=== PATIENT | female | born 1980 | race Caucasian/White ===

== ENCOUNTER → 2018-09-11 | Outpatient (CLI) | payer MEDICAID ==
--- NOTE | 2018-09-11 14:24 | Diagnostic Imaging Report ---
Indication: Left hip osteoarthritis. Time of exam: 2:10 PM Two views of the left hip demonstrate moderate superior joint space narrowing. Medial joint space is maintained. The femoral acetabular alignment is unremarkable. Femoral head and neck are intact. No fractures are seen. Impression: Mild degenerative changes. No acute bony abnormality is detected. Dictated by: Dictated on workstation # [id number]
--- NOTE | 2018-09-11 14:25 | Diagnostic Imaging Report ---
Indication: Frozen left shoulder. Time of exam: 1:57 PM Multiple views of the left shoulder were obtained. Glenohumeral and acromioclavicular alignment are normal. Acromiohumeral space is normal. No fracture or dislocation is seen. Impression: No acute bony abnormality is detected. Dictated by: Dictated on workstation # [id number]
== END ==
LOC: RAD FS 13:40
PROVIDERS: ATTEND Nurse Practitioner
DX: M75.02 Adhesive capsulitis of left shoulder (principal); M16.12 Unilateral primary osteoarthritis, left hip; M67.814 Other specified disorders of tendon, left shoulder
CPT/HCPCS: 73030; 73502

== ENCOUNTER 2018-09-30 11:56 | Emergency (ER) | payer MEDICAID ==
[~2018-09-30] VITALS: Ht 175.3 cm; Wt 123.4 kg
--- OUTSIDE RECORDS SUMMARY | 2018-09-30 12:01 | XMS REPORT ---
Author Author NIMCO RILEY Organization [facility] Address [address] [place] [address] Care Team Providers Care Machine I Cutter Name Role Phone NIMCO RILEY Unavailable PROBLEMS Unknown Problems ALLERGIES Substance Reaction Event Type Date Status Metformin HCl Unknown Drug Allergy October, Active ENCOUNTERS Encounter Location Date Diagnosis [facility] [address] [id number] [id number] October, Encounter for dental examination Z01.20 IMMUNIZATIONS No Known Immunizations SOCIAL HISTORY Never Assessed REASON FOR VISIT EST CARE PLAN OF CARE Activity Details Follow Up First Available/, 6 Weeks Reason:Restroative/Prophy VITAL SIGNS Blood pressure systolic 148 mmHg 2017-11-09 Blood pressure diastolic 78 mmHg 2017-11-09 MEDICATIONS Medication Instructions Dosage Frequency Start Date End Date Duration Status Sertraline HCl Active NovoLog Active Lisinopril Active Trazodone & Diet Manage Prod Active Lantus Active BusPIRone HCl Active Victoza Active Tramadol & Dietary Manage Prod Active RESULTS No Results PROCEDURES Procedure Date Ordered Result Body Site COMP ORAL EVALUATION - NEW/EST PT November 09, 2017 INTRAORL-PERIAPICAL 1 FILM [id number] November 09, 2017 Scaling Gingiv Inflammation November 09, 2017 INTRAORL-PERIAPICAL EA ADD FILM November 09, 2017 INTRAORL-PERIAPICAL EA ADD FILM November 09, 2017 PANORAMIC FILM SEE ALSO CODE [id number] November 09, 2017 BITEWINGS - FOUR FILMS November 09, 2017 INSTRUCTIONS MEDICATIONS ADMINISTERED No Known Medications MEDICAL (GENERAL) HISTORY Type Description Date Medical History High Blood Pressure Medical History Asthma Medical History Bronchitis Medical History Type II diabetes Medical History Arthritis Surgical History Tonsils removed 1983 Surgical History Gallbladder Surgical History Ovary removed 2016 Surgical History Hysterectomy 2015 Hospitalization History Hospitalization for surgery only
--- OUTSIDE RECORDS SUMMARY | 2018-09-30 12:01 | XMS REPORT ---
Author Author Jacqueline Quiñonez Organization Dental Address [address], [place] [id number] Care Team Providers Care Assistant Professor In Family Studies Name Role Phone Jacqueline Quiñonez Unavailable PROBLEMS Type Condition ICD9-CM Code [id number] Code Onset Dates Condition Status SNOMED Code Problem Pulpitis 522.0 Active 46835565 Problem tobacco use disorder 305.1 Active 315693934 ALLERGIES No Known Allergies SOCIAL HISTORY Never Assessed PLAN OF CARE Activity Details Follow Up prn Reason:prn VITAL SIGNS Height 70 in 2013-10-11 Weight 256.2 lbs 2013-10-11 Temperature 98.5 degrees Fahrenheit 2013-10-11 BMI 36.76 kg/m2 2013-10-11 Blood pressure systolic 150 mm Hg 2013-10-11 Blood pressure diastolic 90 mm Hg 2013-10-11 MEDICATIONS Medication Instructions Dosage Frequency Start Date End Date Duration Status traZODone HCl 100mg 4 tablets daily Active Naprosyn 375 MG Orally Twice a day 1 tablet 12h May, 30 day(s) Active Lexapro 20mg 1 tablet Active Mason 5-325 MG Orally 1 tab every 6 hrs prn pain as directed Sep, 05 days Active Flonase 50 MCG/ACT Nasally Once a day 2 sprays 24h May, 30 day( s) Active Amoxicillin 250 MG Orally every 12 hrs not taking 12h May, 10 day(s) Active Penicillin V Potassium 500 mg Orally four times a day (qid) 1 tablet Sep, 10 day(s) Active Levemir Flexpen 100 UNIT/ML Subcutaneous Twice daily 50 units Jun, Active RESULTS No Results PROCEDURES Procedure Date Ordered Result Body Site LIMITED ORAL EVALUATION October 11, 2013 SINGLE FIRST FILM October 11, 2013 REAGENT STRIP/BLOOD GLUCOSE October 11, 2013 GLUCOSE BLOOD TEST October 11, 2013 IMMUNIZATIONS No Known Immunizations MEDICAL (GENERAL) HISTORY Type Description Date Medical History High Blood Pressure Medical History Diabetes I Medical History Hepatitis C Medical History psychiatric treatment Medical History liver problems Surgical History tonsillectomy 1983 Surgical History eye surgery 1977 Surgical History ear surgery 1985 Surgical History gallbladder removed 1999 Surgical History c-sections 1996,2003 Surgical History liver bypass 2009 Surgical History lap band 2009 Hospitalization History flu 2010
[2018-09-30] MEDS ORDERED: KETOROLAC 60 MG/2 ML VIAL IM ONE (12:15)
--- NOTE | 2018-09-30 12:19 | ED Back Pain ---
General Chief Complaint: Back Problems Stated Complaint: BACK PAIN Nursing Triage Note: back pain started earlier this week and is getting worse. Now states it is hard to walk bc of the pain. Has taken tramadol and flexeril for pain. Nursing Sepsis Screen: No Definite Risk History of Present Illness Date Seen by Provider: Sep 30, 2018 Time Seen by Provider: 12:15 Initial Comments This 38-year-old white female presents with a complaint of low back pain that has been progressive for the last several days. The patient denies any recent trauma to the back. The patient's pain is sharp in nature and severe. It is made worse with movement. The patient has chronic pain in her left hip that she believes is unrelated to her low back pain. Past medical history includes poorly controlled diabetes. She has had no associated fever, chills, dysuria, frequency, or lateralizing flank pain. Patient has had multiple abdominal surgeries including cholecystectomy, C- section, and hysterectomy. She has had no back surgery. 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 Allergies and Home Medications Allergies Coded Allergies: metformin (Verified Allergy, Unknown, nausea/vomiting, 09/30/18) sumatriptan (Verified Allergy, Unknown, syncope, 09/30/18) Patient Home Medication List Home Medication List Reviewed: Yes Review of Systems Constitutional: No chills, No fever EENTM: No ear pain, No vision loss Respiratory: No cough Cardiovascular: No chest pain Gastrointestinal: No abdominal pain, No diarrhea, No nausea, No vomiting Genitourinary: No dysuria, No frequency Musculoskeletal: see HPI, back pain, joint pain Skin: No change in color (left hip), No rash Psychiatric/Neurological: No Symptoms Reported Past Fnrgehn-Thybqn-Pcyppr Hx Past Med/Social Hx: Reviewed Nursing Past Med/Soc Hx Patient Social History Alcohol Use: Denies Use Recreational Drug Use: No Smoking Status: Current Everyday Smoker 2nd Hand Smoke Exposure: Yes Recent Foreign Travel: No Contact w/Someone Who Travel: No Recent Infectious Disease Expo: No Physical Abuse: No Sexual Abuse: No Mistreated: No Physical Exam Vital Signs Vital Signs - First Documented 09/30/18 12:04 Temp 96.6 Pulse 70 Resp 18 B/P (MAP) 139/68 (91) Pulse Ox 94 Capillary Refill : Less Than 3 Seconds Height, Weight, BMI Height: 5'9.00" Weight: 272lbs. oz. 123.069489qh; BMI Method:Stated General Appearance: WD/WN, Mild Distress HEENT: Normal ENT Inspection Neck: Normal Inspection Cardiovascular: Regular Rate, Rhythm Respiratory: Lungs Clear Gastrointestinal: Normal Bowel Sounds, Non Tender, Soft Back: Normal Inspection; No Vertebral Tenderness; Other (. The patient's pain is located over the lower lumbar region in the midline.) Extremity: Normal Inspection, Normal Range of Motion Neurologic/Psychiatric: Alert, Oriented x3, No Motor/Sensory Deficits, Normal Mood/Affect Skin: Normal Color, Warm/Dry Progress/Results/Core Measures Results/Orders Lab Results Laboratory Tests Test 09/30/18 12:26 09/30/18 12:27 Range/Units White Blood Count 11.8 H 4.3-11.0 10^3/uL Red Blood Count 5.07 4.35-5.85 10^6/uL Hemoglobin 14.8 11.5-16.0 G/DL Hematocrit 44 35-52 % Mean Corpuscular Volume 86 80-99 FL Mean Corpuscular Hemoglobin 29 25-34 PG Mean Corpuscular Hemoglobin Concent 34 32-36 G/DL Red Cell Distribution Width 12.6 10.0-14.5 % Platelet Count 331 130-400 10^3/uL Mean Platelet Volume 10.1 7.4-10.4 FL Neutrophils (%) (Auto) 68 42-75 % Lymphocytes (%) (Auto) 23 12-44 % Monocytes (%) (Auto) 6 0-12 % Eosinophils (%) (Auto) 2 0-10 % Basophils (%) (Auto) 1 0-10 % Neutrophils # (Auto) 8.0 H 1.8-7.8 X 10^3 Lymphocytes # (Auto) 2.8 1.0-4.0 X 10^3 Monocytes # (Auto) 0.7 0.0-1.0 X 10^3 Eosinophils # (Auto) 0.2 0.0-0.3 10^3/uL Basophils # (Auto) 0.1 0.0-0.1 10^3/uL Sodium Level 134 L 135-145 MMOL/L Potassium Level 4.5 3.6-5.0 MMOL/L Chloride Level 96 L 98-107 MMOL/L Carbon Dioxide Level 26 21-32 MMOL/L Anion Gap 12 5-14 MMOL/L Blood Urea Nitrogen 10 7-18 MG/DL Creatinine 0.53 L 0.60-1.30 MG/DL Estimat Glomerular Filtration Rate > 60 BUN/Creatinine Ratio 19 Glucose Level 384 H 70-105 MG/DL Calcium Level 9.4 8.5-10.1 MG/DL Corrected Calcium 9.3 8.5-10.1 MG/DL Total Bilirubin 0.3 0.1-1.0 MG/DL Aspartate Amino Transf (AST/SGOT) 10 5-34 U/L Alanine Aminotransferase (ALT/SGPT) 8 0-55 U/L Alkaline Phosphatase 158 H 40-136 U/L Total Protein 7.6 6.4-8.2 GM/DL Albumin 4.1 3.2-4.5 GM/DL Urine Color YELLOW Urine Clarity CLEAR Urine pH 6 5-9 Urine Specific [place] 1.020 1.016-1.022 Urine Protein NEGATIVE NEGATIVE Urine Glucose (UA) 3+ H NEGATIVE Urine Ketones NEGATIVE NEGATIVE Urine Nitrite NEGATIVE NEGATIVE Urine Bilirubin NEGATIVE NEGATIVE Urine Urobilinogen NORMAL NORMAL MG/DL Urine Leukocyte Esterase NEGATIVE NEGATIVE Urine RBC (Auto) NEGATIVE NEGATIVE Urine RBC NONE /HPF Urine WBC NONE /HPF Urine Squamous Epithelial Cells 2-5 /HPF Urine Crystals NONE /LPF Urine Bacteria NEGATIVE /HPF Urine Casts NONE /LPF Urine Mucus NEGATIVE /LPF Urine Culture Indicated NO My Orders Orders - PARUL PEARSON MD Ct Lumbar Spine Wo (09/30/18 12:12) Cbc With Automated Diff (09/30/18 12:12) Ua Culture If Indicated (09/30/18 12:12) Comprehensive Metabolic Panel (09/30/18 12:12) Hemoglobin A1c (09/30/18 12:12) Ketorolac Injection (Toradol Injection) (09/30/18 12:15) Medications Given in ED Current Medications Medications Dose Ordered Sig/Martin Route Start Time Stop Time Status Last Admin Dose Admin Ketorolac Tromethamine 60 mg ONCE ONCE IM 09/30/18 12:15 09/30/18 12:16 DC 09/30/18 12:24 60 MG Vital Signs/I&O 09/30/18 12:04 Temp 96.6 Pulse 70 Resp 18 B/P (MAP) 139/68 (91) Pulse Ox 94 Blood Pressure Mean: 91 Progress Progress Note : Time: 13:13 Progress Note The glucose of 380 at patient's laboratory evaluation was unremarkable. Patient 's hemoglobin A1c is pending. CT of the lumbar spine demonstrated mild degenerative changes. The patient received 60 mg of Norflex and 60 mg of Toradol IM without significant improvement in her pain. Patient relates that hydrocodone works well for her pain. Patient will use her sliding scale to adjust her hyperglycemia. I gave her a prescription for 20 Vicodin until she can follow-up with her doctor on Tuesday. I asked her to return if any problems or questions. Departure Impression Primary Impression: Back pain Qualified Codes: M54.5 - Low back pain Additional Impression: Hyperglycemia Disposition: HOME, SELF-CARE Condition: Unchanged Departure-Patient Inst. Decision time for Depature: 13:15 Referrals: AMINA MAR MD (PCP) Primary Care Physician Patient Instructions: Hyperglycemia, Adult (DC), Low Back Pain (DC) Add. Discharge Instructions: Vicodin for pain. Usually her sliding scale to adjust her glucose. Return if any problems or questions. Follow up with your doctor on Tuesday. All discharge instructions reviewed with patient and/or family. Voiced understanding. PARUL PEARSON MD Sep 30, 2018 12:19
[2018-09-30 12:36] LABS: EOSINOPHILS % (AUTO) 2 % (0-10); HEMATOCRIT 44 % (35-52); HEMOGLOBIN 14.8 G/DL (11.5-16.0); LYMPHOCYTES % (AUTO) 23 % (12-44); MEAN CORPUSCULAR HEMOGLOBIN 29 PG (25-34); MEAN CORPUSCULAR HGB CONC 34 G/DL (32-36); MEAN CORPUSCULAR VOLUME 86 FL (80-99); MEAN PLATELET VOLUME 10.1 FL (7.4-10.4); MONOCYTES % (AUTO) 6 % (0-12); NEUTROPHILS % (AUTO) 68 % (42-75); PLATELET COUNT 331 10^3/uL (130-400); RED CELL DISTRIBUTION WIDTH 12.6 % (10.0-14.5); WHITE BLOOD COUNT 11.8 10^3/uL (4.3-11.0)
[2018-09-30 12:37] LABS: BASOPHILS # (AUTO) 0.1 10^3/uL (0.0-0.1); BASOPHILS % (AUTO) 1 % (0-10); EOSINOPHILS # (AUTO) 0.2 10^3/uL (0.0-0.3); LYMPHOCYTES # (AUTO) 2.8 X 10^3 (1.0-4.0); MONOCYTES # (AUTO) 0.7 X 10^3 (0.0-1.0)
[2018-09-30 12:44] LABS: BACTERIA,URINE NEGATIVE /HPF; BILIRUBIN,URINE NEGATIVE (NEGATIVE); CLARITY,URINE CLEAR; COLOR,URINE YELLOW; GLUCOSE, URINE (UA) 3+ (NEGATIVE); KETONES,URINE NEGATIVE (NEGATIVE); LEUKOCYTE ESTERASE ,URINE NEGATIVE (NEGATIVE); NITRITE,URINE NEGATIVE (NEGATIVE); PH,URINE 6 (5-9); PROTEIN,URINE NEGATIVE (NEGATIVE); UROBILINOGEN,URINE NORMAL (NORMAL)
[2018-09-30 13:01] LABS: ALANINE AMINOTRANSFERASE 8 U/L (0-55); ALBUMIN 4.1 GM/DL (3.2-4.5); ALKALINE PHOSPHATASE 158 U/L (40-136); BILIRUBIN,TOTAL 0.3 MG/DL (0.1-1.0); BUN/CREATININE RATIO 19; CALCIUM 9.4 MG/DL (8.5-10.1); CARBON DIOXIDE 26 MMOL/L (21-32); CHLORIDE 96 MMOL/L (98-107); CREATININE SERUM 0.53 MG/DL (0.60-1.30); GFR ESTIMATED > 60; GLUCOSE 384 MG/DL (70-105); POTASSIUM 4.5 MMOL/L (3.6-5.0); SODIUM 134 MMOL/L (135-145); TOTAL PROTEIN 7.6 GM/DL (6.4-8.2)
--- NOTE | 2018-09-30 13:12 | Diagnostic Imaging Report ---
PROCEDURE: CT lumbar spine without contrast. TECHNIQUE: Multiple contiguous axial images were obtained through the lumbar spine without the use of intravenous contrast. Sagittal and coronal reformations were then performed. Auto Exposure Controls were utilized during the CT exam to meet ALARA standards for radiation dose reduction. INDICATION: Back pain that began five days previous. FINDINGS: The alignment of the lumbar spine is normal. The vertebral body heights are well maintained. There is no spondylolysis or spondylolisthesis. No fractures are identified. There are no lytic or sclerotic lesions. There is some lower lumbar hypertrophic degenerative facet disease. At L4-L5, there appears to be some broad-based annular bulging as well as some thickening of the ligamentum flavum. There may be some degree of spinal stenosis and mild neuroforaminal encroachment at this level. At L5-S1, there is a calcified osteophyte disc complex in a left paramedian distribution resulting in effacement of the ventral thecal sac and encroachment upon the left lateral recess and left neural foramen. The abdominal aorta is nonaneurysmal. Visualized kidneys are unremarkable. IMPRESSION: Mild lower lumbar spondylosis and degenerative disc disease as described. Findings could be better evaluated with MRI. Dictated by: Dictated on workstation # [id number]
[2018-09-30 13:45] VITALS: BP 119/65
== END 2018-09-30 13:48 | disposition home or self-care (01) ==
LOC: EDUNIT# 11:56 → ER FS 11:58
DX: M54.5 Low back pain (principal); E11.65 Type 2 diabetes mellitus with hyperglycemia; F17.210 Nicotine dependence, cigarettes, uncomplicated; Z88.8 Allergy status to other drugs, medicaments and biological substances; Z90.49 Acquired absence of other specified parts of digestive tract; Z90.710 Acquired absence of both cervix and uterus; Z98.890 Other specified postprocedural states
CPT/HCPCS: 36415; 72131; 80053; 81000; 83036; 85025; 96372

== ENCOUNTER → 2018-11-14 | Outpatient (CLI) | payer MEDICAID ==
--- NOTE | 2018-11-14 11:10 | Diagnostic Imaging Report ---
PROCEDURE: MRI lumbar spine. TECHNIQUE: Multiplanar, multisequence MRI of the lumbar spine was performed without contrast. INDICATION: Bilateral leg pain and low back pain. FINDINGS: Lumbar spinal curvature and alignment are unremarkable. Vertebral body heights and disc spaces are maintained. There is mild annular bulging of the L3-L4 disc with associated degenerative facet arthropathy. No significant stenosis is identified. At L4-L5, there is right paramedian protrusion with apparent extruded fragment extending posterior along the L5 vertebral body. This is associated with degenerative facet arthropathy and results in moderately severe spinal stenosis with severe right lateral recess stenosis and mild neural foraminal stenosis, greater on the right. At L5-S1, there is large left paramedian disc protrusion resulting in moderate left lateral recess and neural foraminal stenosis. No other focal stenosis is identified. Conus medullaris is unremarkable at the T12 level. There is no marrow signal abnormality to indicate fracture. IMPRESSION: Right paramedian protrusion and extrusion at L4-L5 disc results in moderate spinal and severe right lateral recess stenosis. Left paramedian protrusion of L5-S1 disc causes [id number] spinal and moderate left lateral recess stenosis with [id number] left neural foraminal stenosis. Dictated by: Dictated on workstation # [id number]
== END ==
LOC: RAD 09:45
PROVIDERS: ATTEND Nurse Practitioner
DX: M51.17 Intervertebral disc disorders with radiculopathy, lumbosacral region (principal); M48.07 Spinal stenosis, lumbosacral region
CPT/HCPCS: 72148

== ENCOUNTER 2018-12-05 14:10 | Emergency (ER) | payer MEDICAID ==
[~2018-12-05] VITALS: Ht 175.3 cm; Wt 123.4 kg
--- OUTSIDE RECORDS SUMMARY | 2018-12-05 14:16 | XMS REPORT | Continuity of Care Document ---
Author Organization Unknown Address Unknown Allergies Active Description Code Type Severity Reaction Onset Reported/Identified Relationship to Patient Clinical Status Yes metformin [id number] Drug Allergy Unknown nausea/vomiting 09/30/2018 Yes sumatriptan [id number] Drug Allergy Unknown syncope 09/30/2018 Medications There is no data. Problems Date Dx Coded Attending Type Code Diagnosis Diagnosed By 09/12/2018 AMINA MAR MD, Ot M16.12 UNILATERAL PRIMARY OSTEOARTHRITIS, LEFT 09/12/2018 AMINA MAR MD Ot M67.814 OTHER SPECIFIED DISORDERS OF TENDON, LEF 09/12/2018 AMINA MAR MD Ot M75.02 ADHESIVE CAPSULITIS OF LEFT SHOULDER 09/18/2018 AMINA MAR MD Ot M16.12 UNILATERAL PRIMARY OSTEOARTHRITIS, LEFT 09/18/2018 AMINA MAR MD Ot M67.814 OTHER SPECIFIED DISORDERS OF TENDON, LEF 09/18/2018 AMINA MAR MD Ot M75.02 ADHESIVE CAPSULITIS OF LEFT SHOULDER 09/30/2018 PARUL PEARSON MD Ot E11.65 TYPE 2 DIABETES MELLITUS WITH HYPERGLYCE 09/30/2018 PARUL PEARSON MD Ot F17.210 NICOTINE DEPENDENCE, CIGARETTES, UNCOMPL 09/30/2018 PARUL PEARSON MD Ot M54.5 LOW BACK PAIN 09/30/2018 PARUL PEARSON MD Ot Z88.8 ALLERGY STATUS TO OTH DRUG/MEDS/BIOL SUB 09/30/2018 PARUL PERASON MD Ot Z90.49 ACQUIRED ABSENCE OF OTHER SPECIFIED PART 09/30/2018 PARUL PEARSON MD Ot Z90.710 ACQUIRED ABSENCE OF BOTH CERVIX AND UTER 09/30/2018 PARUL PEARSON MD Ot Z98.890 OTHER SPECIFIED POSTPROCEDURAL STATES 10/05/2018 AMINA MAR MD Ot M16.12 UNILATERAL PRIMARY OSTEOARTHRITIS, LEFT 10/05/2018 AMINA MAR MD Ot M67.814 OTHER SPECIFIED DISORDERS OF TENDON, LEF 10/05/2018 AMINA MAR MD Ot M75.02 ADHESIVE CAPSULITIS OF LEFT SHOULDER 11/10/2018 AMINA MAR MD Ot M16.12 UNILATERAL PRIMARY OSTEOARTHRITIS, LEFT 11/10/2018 AMINA MAR MD Ot M67.814 OTHER SPECIFIED DISORDERS OF TENDON, LEF 11/10/2018 AMINA MAR MD Ot M75.02 ADHESIVE CAPSULITIS OF LEFT SHOULDER 12/04/2018 AMINA MAR MD Ot M16.12 UNILATERAL PRIMARY OSTEOARTHRITIS, LEFT 12/04/2018 AMINA MAR MD Ot M67.814 OTHER SPECIFIED DISORDERS OF TENDON, LEF 12/04/2018 AMINA MAR MD Ot M75.02 ADHESIVE CAPSULITIS OF LEFT SHOULDER 12/04/2018 CHESTER BURNS Ot M48.07 SPINAL STENOSIS, LUMBOSACRAL REGION 12/04/2018 CHESTER BURNS Ot M51.17 INTVRT DISC DISORDERS W RADICULOPATHY, L Procedures There is no data. Results Test Result Range Complete blood count (CBC) with automated white blood cell (WBC) differential - 09/30/18 12:26 Blood leukocytes automated count (number/volume) 11.8 10*3/uL 4.3-11.0 Blood erythrocytes automated count (number/volume) 5.07 10*6/uL 4.35-5.85 Venous blood hemoglobin measurement (mass/volume) 14.8 g/dL 11.5-16.0 Blood hematocrit (volume fraction) 44 % 35-52 Automated erythrocyte mean corpuscular volume 86 [foz_us] 80-99 Automated erythrocyte mean corpuscular hemoglobin (mass per erythrocyte) 29 pg 25-34 Automated erythrocyte mean corpuscular hemoglobin concentration measurement (mass/volume) 34 g/dL 32-36 Automated erythrocyte distribution width ratio 12.6 % 10.0- 14.5 Automated blood platelet count (count/volume) 331 10*3/uL 130-400 Automated blood platelet mean volume measurement 10.1 [foz_us] 7.4-10.4 Automated blood neutrophils/100 leukocytes 68 % 42-75 Automated blood lymphocytes/100 leukocytes 23 % 12-44 Blood monocytes/100 leukocytes 6 % 0-12 Automated blood eosinophils/100 leukocytes 2 % 0-10 Automated blood basophils/100 leukocytes 1 % 0-10 Blood neutrophils automated count (number/volume) 8.0 10*3 1.8-7.8 Blood lymphocytes automated count (number/volume) 2.8 10*3 1.0-4.0 Blood monocytes automated count (number/volume) 0.7 10*3 0.0- 1.0 Automated eosinophil count 0.2 10*3/uL 0.0-0.3 Automated blood basophil count (count/volume) 0.1 10*3/uL 0.0-0.1 Comprehensive metabolic panel - 09/30/18 12:26 Serum or plasma sodium measurement (moles/volume) 134 mmol/L 135-145 Serum or plasma potassium measurement (moles/volume) 4.5 mmol/L 3.6-5.0 Serum or plasma chloride measurement (moles/volume) 96 mmol/L 98-107 Carbon dioxide 26 mmol/L 21-32 Serum or plasma anion gap determination (moles/volume) 12 mmol/L 5-14 Serum or plasma urea nitrogen measurement (mass/volume) 10 mg/dL 7-18 Serum or plasma creatinine measurement (mass/volume) 0.53 mg/dL 0.60-1.30 Serum or plasma urea nitrogen/creatinine mass ratio 19 NRG Serum or plasma creatinine measurement with calculation of estimated glomerular filtration rate > NRG Serum or plasma glucose measurement (mass/volume) 384 mg/dL 70-105 Serum or plasma calcium measurement (mass/volume) 9.4 mg/dL 8.5-10.1 Serum or plasma total bilirubin measurement (mass/volume) 0.3 mg/dL 0.1-1.0 Serum or plasma alkaline phosphatase measurement (enzymatic activity/volume) 158 U/L 40-136 Serum or plasma aspartate aminotransferase measurement (enzymatic activity/volume) 10 U/L 5-34 Serum or plasma alanine aminotransferase measurement (enzymatic activity/volume) 8 U/L 0-55 Serum or plasma protein measurement (mass/volume) 7.6 g/dL 6.4-8.2 Serum or plasma albumin measurement (mass/volume) 4.1 g/dL 3.2-4.5 CALCIUM CORRECTED 9.3 mg/dL 8.5-10.1 Hemoglobin A1c - 09/30/18 12:26 Blood hemoglobin A1C measurement (mass/volume) 11.5 % 4.0- 5.6 MEAN BLOOD GLUCOSE 283 % <=126 Complete urinalysis with reflex to culture - 09/30/18 12:27 Urine color determination YELLOW NRG Urine clarity determination CLEAR NRG Urine pH measurement by test strip 6 5-9 Specific gravity of urine by test strip 1.020 1.016-1.022 Urine protein assay by test strip, semi-quantitative NEGATIVE NEGATIVE Urine glucose detection by automated test strip 3+ NEGATIVE Erythrocytes detection in urine sediment by light microscopy NEGATIVE NEGATIVE Urine ketones detection by automated test strip NEGATIVE NEGATIVE Urine nitrite detection by test strip NEGATIVE NEGATIVE Urine total bilirubin detection by test strip NEGATIVE NEGATIVE Urine urobilinogen measurement by automated test strip (mass/volume) NORMAL NORMAL Urine leukocyte esterase detection by dipstick NEGATIVE NEGATIVE Automated urine sediment erythrocyte count by microscopy (number/high power field) NONE NRG Automated urine sediment leukocyte count by microscopy (number/high power field) NONE NRG Bacteria detection in urine sediment by light microscopy NEGATIVE NRG Squamous epithelial cells detection in urine sediment by light microscopy 2-5 NRG Crystals detection in urine sediment by light microscopy NONE NRG Casts detection in urine sediment by light microscopy NONE NRG Mucus detection in urine sediment by light microscopy NEGATIVE NRG Complete urinalysis with reflex to culture NO NRG Encounters ACCT No. Visit Date/Time Discharge Status Pt. Type Provider Facility Loc./Unit Complaint [id number] 11/14/2018 09:45:00 11/14/2018 23:59:59 CLS Outpatient CHESTER BURNS [facility] [address] RAD SCIATICA, LT [id number] 09/30/2018 11:58:00 09/30/2018 13:48:00 DIS Emergency LILI TAYLOR, PARUL Parra [facility] [address] ER FS BACK PAIN [id number] 09/11/2018 13:40:00 09/11/2018 23:59:59 CLS Outpatient AMINA MAR MD [facility] [address] RAD FS M16.12 M67.814 [id number] 01/02/2019 15:15:00 PEN Preadmit RICHARD FRITZ [facility] [address] ONC
[2018-12-05] MEDS ORDERED: LIDOCAINE 1% INJ 20 ML 20 ML VIAL ONE (14:23)
[2018-12-05 14:39] VITALS: BP 134/69
--- NOTE | 2018-12-05 14:44 | ED Integumentary General ---
General Chief Complaint: Skin/Wound Problems Stated Complaint: ABSCESS Nursing Triage Note: States has had an abscess on left buttock for two months. Saw her regular doctor two weeks ago and got a prescription for bactrim. Has been out of bactrim since last tuesday and the abscess is getting worse and is painful. Pain is rated at 7/10. Took tylenol yesterday for pain. Source: patient Exam Limitations: no limitations History of Present Illness Date Seen by Provider: Dec 05, 2018 Time Seen by Provider: 14:20 Initial Comments Patient is a 38 year old female who presents with L buttock soft tissue mass with concern for possible abscess. Patient has been evaluated by her PCP and LEEP some misery and started on a course of antibiotics. Patient weight antibiotics's weeks ago but states the cyst or abscess has persisted. The patient reports localized irritation and pain only. There is approximately a 2 x 2 cm subcutaneous left buttock/perianal soft tissue mass approximately 4 cm from the anal a the 9 o'clock position. No overlying erythema, minimal tenderness on exam Location: genitalia Associated Symptoms: denies symptoms Allergies and Home Medications Allergies Coded Allergies: metformin (Verified Allergy, Unknown, nausea/vomiting, 09/30/18) sumatriptan (Verified Allergy, Unknown, syncope, 09/30/18) Patient Home Medication List Home Medication List Reviewed: Yes Review of Systems Review of Systems Constitutional: no symptoms reported EENTM: no symptoms reported Respiratory: no symptoms reported Cardiovascular: no symptoms reported Genitourinary: no symptoms reported Skin: see HPI Past Xhqqnez-Qpkhhj-Rhpxnk Hx Past Med/Social Hx: Reviewed Nursing Past Med/Soc Hx Patient Social History Alcohol Use: Denies Use Recreational Drug Use: No Smoking Status: Current Everyday Smoker 2nd Hand Smoke Exposure: Yes Recent Foreign Travel: No Contact w/Someone Who Travel: No Recent Infectious Disease Expo: No Physical Abuse: No Sexual Abuse: No Mistreated: No Fear: No Physical Exam Vital Signs Vital Signs - First Documented 12/05/18 14:16 Temp 97.8 Pulse 88 Resp 16 B/P (MAP) 134/69 (90) Pulse Ox 97 Capillary Refill : Less Than 3 Seconds General Appearance: no apparent distress HEENT: PERRL/EOMI Neck: full range of motion Respiratory: lungs clear 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 No overlying erythema, minimal tenderness on exam) Progress/Results/Core Measures Results/Orders My Orders Orders - CHAVEZ SHARIF DO Lidocaine 1% Inj 20 Ml (Xylocaine 1% Inj (12/05/18 14:23) Vital Signs/I&O 12/05/18 14:16 Temp 97.8 Pulse 88 Resp 16 B/P (MAP) 134/69 (90) Pulse Ox 97 Blood Pressure Mean: 90 Departure Communication (Admissions) Needle aspiration procedure note Patient's left buttocks was prepped with Betadine. 2 cc of 1% lidocaine without epinephrine were injected directly above the area of greatest fluctuance the left buttock soft tissue mass. Following which an 18 G was inserted this area of the previsit aspiration. 3 times her to made to aspirate this which were unsuccessful. No further attempts were made. Bleeding and pain were minimal. The patient was instructed to follow up with her PCP for re-evaluation. Impression Primary Impression: Buttocks nodule Disposition: 01 HOME, SELF-CARE Condition: Improved Departure-Patient Inst. Add. Discharge Instructions: Take ibuprofen as needed for pain and swelling and follow up with your PCP for further evaluation. All discharge instructions reviewed with patient and/or family. Voiced und erstanding. CHAVEZ SHARIF DO Dec 05, 2018 14:44
[2018-12-05] MEDS ORDERED: LIDOCAINE 1% INJ 20 ML 20 ML VIAL INJ ONE (14:45)
== END 2018-12-05 14:46 | disposition home or self-care (01) ==
LOC: EDUNIT# 14:10 → ER FS 14:11
DX: R22.2 Localized swelling, mass and lump, trunk (principal); F17.200 Nicotine dependence, unspecified, uncomplicated; Z88.8 Allergy status to other drugs, medicaments and biological substances
CPT/HCPCS: 99282

== ENCOUNTER 2019-01-02 12:08 | Outpatient (RCR) | payer MEDICAID ==
[2019-01-02 13:38] LABS: BASOPHILS # (AUTO) 0.1 10^3/uL (0.0-0.1); BASOPHILS % (AUTO) 0 % (0-10); EOSINOPHILS # (AUTO) 0.3 10^3/uL (0.0-0.3); EOSINOPHILS % (AUTO) 1 % (0-10); HEMATOCRIT 43 % (35-52); HEMOGLOBIN 14.6 G/DL (11.5-16.0); LYMPHOCYTES # (AUTO) 4.2 X 10^3 (1.0-4.0); LYMPHOCYTES % (AUTO) 21 % (12-44); MEAN CORPUSCULAR HEMOGLOBIN 29 PG (25-34); MEAN CORPUSCULAR HGB CONC 34 G/DL (32-36); MEAN CORPUSCULAR VOLUME 86 FL (80-99); MEAN PLATELET VOLUME 9.9 FL (7.4-10.4); MONOCYTES # (AUTO) 1.3 X 10^3 (0.0-1.0); MONOCYTES % (AUTO) 7 % (0-12); NEUTROPHILS # (AUTO) 14.4 X 10^3 (1.8-7.8); NEUTROPHILS % (AUTO) 71 % (42-75); PLATELET COUNT 375 10^3/uL (130-400); RED CELL DISTRIBUTION WIDTH 13.6 % (10.0-14.5); WHITE BLOOD COUNT 20.2 10^3/uL (4.3-11.0)
[2019-01-02 13:41] LABS: SMEAR SCAN COMMENT YES
[2019-01-02 14:00] LABS: ALANINE AMINOTRANSFERASE 18 U/L (0-55); ALKALINE PHOSPHATASE 140 U/L (40-136); BILIRUBIN,TOTAL 0.4 MG/DL (0.1-1.0); BUN/CREATININE RATIO 22; CALCIUM 9.9 MG/DL (8.5-10.1); CARBON DIOXIDE 23 MMOL/L (21-32); CHLORIDE 104 MMOL/L (98-107); CREATININE SERUM 0.81 MG/DL (0.60-1.30); GFR ESTIMATED > 60; GLUCOSE 126 MG/DL (70-105); POTASSIUM 4.6 MMOL/L (3.6-5.0); SODIUM 138 MMOL/L (135-145); TOTAL PROTEIN 7.8 GM/DL (6.4-8.2)
[2019-01-17] MEDS ORDERED: SULF1TAB34 PO (18:57)
[2019-02-24] MEDS ORDERED: SULF1TAB35 PO (17:29)
== END 2019-04-02 | disposition home or self-care (01) ==
LOC: ONC 12:08
PROVIDERS: ATTEND Internal Medicine Hematology & Oncology
DX: D72.829 Elevated white blood cell count, unspecified (principal); E10.43 Type 1 diabetes mellitus with diabetic autonomic (poly)neuropathy; E10.42 Type 1 diabetes mellitus with diabetic polyneuropathy; I10 Essential (primary) hypertension; F17.210 Nicotine dependence, cigarettes, uncomplicated; Z79.4 Long term (current) use of insulin; Z79.899 Other long term (current) drug therapy
CPT/HCPCS: 36415; 80053; 82784; 83883; 84155; 84165; 85025; 88184; 88185; 88377; 99214

== ENCOUNTER 2019-01-17 18:17 | Emergency (ER) | payer MEDICAID ==
[~2019-01-17] VITALS: Ht 175.3 cm; Wt 118.8 kg
--- OUTSIDE RECORDS SUMMARY | 2019-01-17 18:23 | XMS REPORT | Continuity of Care Document ---
Author Organization Unknown Address Unknown Allergies Active Description Code Type Severity Reaction Onset Reported/Identified Relationship to Patient Clinical Status Yes metformin [id number] Drug Allergy Unknown nausea/vomiting 09/30/2018 Yes sumatriptan [id number] Drug Allergy Unknown syncope 09/30/2018 Medications There [...] STATUS TO OTH DRUG/MEDS/BIOL SUB 09/30/2018 PARUL PEARSON MD Ot Z90.49 ACQUIRED ABSENCE OF OTHER [...] Ot M16.12 UNILATERAL PRIMARY OSTEOARTHRITIS, LEFT 11/10/2018 ZAID TAYLOR, AMINA Burden Ot M67.814 OTHER SPECIFIED DISORDERS OF TENDON, [...] M51.17 INTVRT DISC DISORDERS W RADICULOPATHY, L 12/05/2018 CHE[place] BURNS Ot M48.07 SPINAL STENOSIS, LUMBOSACRAL REGION 12/05/2018 [place] B[place] Ot M51.17 INTVRT DISC DISORDERS W RADICULOPATHY, L 12/05/2018 CHAVEZ SHRAIF DO Ot F17.200 NICOTINE DEPENDENCE, UNSPECIFIED, UNCOMP 12/05/2018 CHAVEZ SHARIF DO Ot R22.2 LOCALIZED SWELLING, MASS AND LUMP, TRUNK 12/05/2018 CHAVEZ SHARIF DO Ot Z88.8 ALLERGY STATUS TO OTH DRUG/MEDS/BIOL SUB 12/08/2018 CHAVEZ SHARIF DO Ot F17.200 NICOTINE DEPENDENCE, UNSPECIFIED, UNCOMP 12/08/2018 CHAVEZ SHARIF DO Ot R22.2 LOCALIZED SWELLING, MASS AND LUMP, TRUNK 12/08/2018 KOLE ALONZO CHAVEZ Ot Z88.8 ALLERGY STATUS TO OTH DRUG/MEDS/BIOL SUB 01/02/2019 AMINA MAR MD Ot M16.12 UNILATERAL PRIMARY OSTEOARTHRITIS, LEFT 01/02/2019 AMINA MAR MD Ot M67.814 OTHER SPECIFIED DISORDERS OF TENDON, LEF 01/02/2019 AMINA MAR MD Ot M75.02 ADHESIVE CAPSULITIS OF LEFT SHOULDER 01/02/2019 [place] B[place] Ot M48.07 SPINAL STENOSIS, LUMBOSACRAL REGION 01/02/2019 [place] BURNS [facility] Ot M51.17 INTVRT DISC DISORDERS W RADICULOPATHY, [...] urinalysis with reflex to culture NO NRG Complete blood count (CBC) with automated white blood cell (WBC) differential - 01/02/19 13:31 Blood leukocytes automated count (number/volume) 20.2 10*3/uL 4.3-11.0 Blood erythrocytes automated count (number/volume) 4.99 10*6/uL 4.35-5.85 Venous blood hemoglobin measurement (mass/volume) 14.6 g/dL 11.5-16.0 Blood hematocrit (volume fraction) 43 % 35-52 Automated erythrocyte mean corpuscular volume 86 [foz_us] 80-99 Automated erythrocyte mean corpuscular hemoglobin (mass per erythrocyte) 29 pg 25-34 Automated erythrocyte mean corpuscular hemoglobin concentration measurement (mass/volume) 34 g/dL 32-36 Automated erythrocyte distribution width ratio 13.6 % 10.0- 14.5 Automated blood platelet count (count/volume) 375 10*3/uL 130-400 Automated blood platelet mean volume measurement 9.9 [foz_us] 7.4-10.4 Automated blood neutrophils/100 leukocytes 71 % 42-75 Automated blood lymphocytes/100 leukocytes 21 % 12-44 Blood monocytes/100 leukocytes 7 % 0-12 Automated blood eosinophils/100 leukocytes 1 % 0-10 Automated blood basophils/100 leukocytes 0 % 0-10 Blood neutrophils automated count (number/volume) 14.4 10*3 1.8-7.8 Blood lymphocytes automated count (number/volume) 4.2 10*3 1.0-4.0 Blood monocytes automated count (number/volume) 1.3 10*3 0.0- 1.0 Automated eosinophil count 0.3 10*3/uL 0.0-0.3 Automated blood basophil count (count/volume) 0.1 10*3/uL 0.0-0.1 Blood blood smear finding identification by light microscopy YES NRG Comprehensive metabolic panel - 01/02/19 13:31 Serum or plasma sodium measurement (moles/volume) 138 mmol/L 135-145 Serum or plasma potassium measurement (moles/volume) 4.6 mmol/L 3.6-5.0 Serum or plasma chloride measurement (moles/volume) 104 mmol/L 98-107 Carbon dioxide 23 mmol/L 21-32 Serum or plasma anion gap determination (moles/volume) 11 mmol/L 5-14 Serum or plasma urea nitrogen measurement (mass/volume) 18 mg/dL 7-18 Serum or plasma creatinine measurement (mass/volume) 0.81 mg/dL 0.60-1.30 Serum or plasma urea nitrogen/creatinine mass ratio 22 NRG Serum or plasma creatinine measurement with calculation of estimated glomerular filtration rate > NRG Serum or plasma glucose measurement (mass/volume) 126 mg/dL 70-105 Serum or plasma calcium measurement (mass/volume) 9.9 mg/dL 8.5-10.1 Serum or plasma total bilirubin measurement (mass/volume) 0.4 mg/dL 0.1-1.0 Serum or plasma alkaline phosphatase measurement (enzymatic activity/volume) 140 U/L 40-136 Serum or plasma aspartate aminotransferase measurement (enzymatic activity/volume) 18 U/L 5-34 Serum or plasma alanine aminotransferase measurement (enzymatic activity/volume) 18 U/L 0-55 Serum or plasma protein measurement (mass/volume) 7.8 g/dL 6.4-8.2 Serum or plasma albumin measurement (mass/volume) 4.0 g/dL 3.2-4.5 CALCIUM CORRECTED 9.9 mg/dL 8.5-10.1 [id number] - 01/02/19 15:03 [id number] 178 % 47-209 Serum IgA measurement (units/volume) 130 % 71-263 Serum protein electrophoresis - 01/02/19 15:03 Serum or plasma protein measurement (mass/volume) 7.5 % 6.7- 8.3 Pathology consultation and report SEE PATH REPORT NRG Quantitative urine kappa and lambda free light chains measurement - 01/02/19 15:03 Quantitative serum kappa light chain measurement 16.10 % 3.30- 19.40 Quantitative serum lambda light chain measurement 21.26 % 5.71-26.30 Serum immunoglobulin free kappa light chains/immunoglobulin lambda light chains mass ratio 0.76 % 0.26-1.65 FLOW CYTOMETRY PERIPHERAL BLOO - 01/02/19 15:03 Pathology consultation and report [id number] NRG Blood lymphocytes count by flow cytometry (number/volume) SEE FOOTNOTE NRG BCR-ABL1 gene translocation detection by fluorescence in situ hybridization (FISH) - 01/02/19 15:03 [id number] Blood NRG BCR-ABL gene translocation detection See Report NRG Encounters ACCT No. Visit Date/Time Discharge Status Pt. Type Provider Facility Loc./Unit Complaint [id number] 01/02/2019 12:08:00 01/02/2019 23:59:59 CLS Outpatient RICHARD FRITZ [facility] ONC [id number] 12/05/2018 14:11:00 12/05/2018 14:46:00 DIS Emergency CHAVEZ SHARIF DO [facility] ER FS ABSCESS [id number] 11/14/2018 09:45:00 11/14/2018 23:59:59 CLS Outpatient [place] BURNS [facility] RAD SCIATICA, LT [id number] 09/30/2018 11:58:00 09/30/2018 13:48:00 DIS Emergency LILI TAYLOR, PARUL Parra [facility] ER FS BACK PAIN [id number] 09/11/2018 13:40:00 09/11/2018 23:59:59 CLS Outpatient ZAID TAYLOR, AMINA Burden [facility] RAD FS M16.12 M67.814
[2019-01-17 18:52] VITALS: BP 136/84
--- NOTE | 2019-01-17 18:56 | ED Integumentary General ---
General Chief Complaint: Skin/Wound Problems Stated Complaint: ABSCESS Nursing Triage Note: Was seen here previously for a small red spot on left gluteal cheek. A needle aspiration was attempted and nothing was returned. States she has been unable to follow up bc she can't get in to her doctor until february. States it has been worse for the past 3 days and she would like it "cut out" Source: patient, family History of Present Illness Date Seen by Provider: Jan 17, 2019 Time Seen by Provider: 18:41 Initial Comments 38-year-old female presents with a "swellingabscess on her left butt cheek near her anus. Patient reports his been there for 4 months. She reports that is got worse over the last 3 days. She reports she would like it "cut out" she has not followed up with her primary care provider for at least 2 months. She was seen here for similar symptoms back in November. She is not having fevers chills or other systemic complaints Allergies and Home Medications Allergies Coded Allergies: metformin (Verified Allergy, Unknown, nausea/vomiting, 09/30/18) sumatriptan (Verified Allergy, Unknown, syncope, 09/30/18) Patient Home Medication List Home Medication List Reviewed: Yes Review of Systems Review of Systems Constitutional: No chills, No fever Respiratory: No cough Cardiovascular: No chest pain Gastrointestinal: No abdominal pain, No constipation, No diarrhea Skin: see HPI Past Dcwkcbz-Xmzzso-Fdtiqt Hx Past Med/Social Hx: Reviewed Nursing Past Med/Soc Hx Patient Social History Alcohol Use: Denies Use Recreational Drug Use: No Smoking Status: Current Everyday Smoker 2nd Hand Smoke Exposure: Yes Recent Foreign Travel: No Contact w/Someone Who Travel: No Recent Infectious Disease Expo: No Recent Hopitalizations: No Physical Abuse: No Sexual Abuse: No Mistreated: No Fear: No Seasonal Allergies Seasonal Allergies: No Past Medical History Surgeries: Yes Cardiac: Yes Hypertension Endocrine: Yes Diabetes, Non-Insulin dep Physical Exam Vital Signs Vital Signs - First Documented 01/17/19 18:26 Temp 97.6 Pulse 90 Resp 16 B/P (MAP) 136/84 (101) Pulse Ox 97 Capillary Refill : Less Than 3 Seconds General Appearance: WD/WN, no apparent distress Cardiovascular: normal peripheral pulses, regular rate, rhythm Respiratory: chest non-tender, lungs clear, normal breath sounds Gastrointestinal: soft Skin: other (Small abscess with some surrounding cellulitis on the left buttock approximately 4-5 cm from the anus. Concerning for infected tract) Skin Problem Character: abscess Progress/Results/Core Measures Results/Orders Vital Signs/I&O 01/17/19 18:26 Temp 97.6 Pulse 90 Resp 16 B/P (MAP) 136/84 (101) Pulse Ox 97 Blood Pressure Mean: 101 Progress Progress Note : Progress Note I discussed with patient that she needs a surgical consultation. That at this time this is not something that we can "take out" in the ER. I will start her on clindamycin she will be discharged home in stable condition. Departure Impression Primary Impression: Abscess of buttock, left Disposition: 01 HOME, SELF-CARE Condition: Stable Departure-Patient Inst. Referrals: AMINA MAR MD (PCP/Family) Primary Care Physician Patient Instructions: Cellulitis (Skin Infection), Adult (DC), Skin Abscess Scripts Sulfamethoxazole/Trimethoprim (Bactrim 400-80 mg Tablet) 1 Each Tablet 1 EACH PO BID for 10 Days, #20 TAB Prov: JUSTINE SANCHES DO 01/17/19 JUSTINE SANCHES DO Jan 17, 2019 18:56
[2019-01-17] MEDS ORDERED: SULF1TAB34 PO (18:57)
== END 2019-01-17 19:00 | disposition home or self-care (01) ==
LOC: EDUNIT# 18:17 → ER FS 18:19
DX: L02.31 Cutaneous abscess of buttock (principal); I10 Essential (primary) hypertension; E11.9 Type 2 diabetes mellitus without complications; F17.200 Nicotine dependence, unspecified, uncomplicated; Z88.2 Allergy status to sulfonamides; Z88.8 Allergy status to other drugs, medicaments and biological substances
CPT/HCPCS: 87070; 87205; 99282

== ENCOUNTER 2019-02-24 14:59 | Emergency (ER) | payer MEDICAID ==
[~2019-02-24] VITALS: Ht 175.3 cm; Wt 118.8 kg
[~2019-02-24 14:59] MED LIST: SULF1TAB34 PO
--- NOTE | 2019-02-24 16:25 | ED Integumentary General ---
General Chief Complaint: Skin/Wound Problems Stated Complaint: ABSCESS ON RT THIGH Nursing Triage Note: Patient c/o abcess to right thigh area. States that it broke open around three days ago and has been draining a small about of foul smelling brown/bloody drainage. She is unaware of when the abcess started but states that she has a history of them. (FRANCY HOLDER) History of Present Illness Date Seen by Provider: Feb 24, 2019 Time Seen by Provider: 15:25 Initial Comments A 38 yo female presents to the ER complaining of an abscess that appeared 3 days ago. The abscess was the size of a pea, but now has elongated and grown in size. Patient reports that the abscess does drain on its own and is a brown bloody discharge. There is pain, but is not warm to the touch. Patient states that she has a history of abscesses with MRSA. (FRANCY HOLDER) Allergies and Home Medications Allergies Coded Allergies: metformin (Verified Allergy, Unknown, nausea/vomiting, 09/30/18) sumatriptan (Verified Allergy, Unknown, syncope, 09/30/18) Home Medications Sulfamethoxazole/Trimethoprim 1 Each Tablet, 1 EACH PO BID Prescribed by: JUSTINE SANCHES on 01/17/19 1857 Sulfamethoxazole/Trimethoprim 1 Each Tablet, 1 EACH PO BID Prescribed by: JONATHAN HUA on 02/24/19 1729 Patient Home Medication List Home Medication List Reviewed: Yes (JONATHAN LU MD) Review of Systems Review of Systems Constitutional: No chills, No fever Respiratory: no symptoms reported Cardiovascular: no symptoms reported : No Skin: other (Abcess) (FRANCY HOLDER) EENTM: no symptoms reported Gastrointestinal: no symptoms reported Musculoskeletal: no symptoms reported Skin: see HPI Psychiatric/Neurological: No Symptoms Reported Endocrine: No Symptoms Reported (JONATHAN LU MD) Past Jbfmjul-Bneulx-Ovmqeg Hx Patient Social History 2nd Hand Smoke Exposure: Yes Recent Foreign Travel: No Contact w/Someone Who Travel: No Recent Infectious Disease Expo: No Recent Hopitalizations: No Physical Abuse: No Sexual Abuse: No Mistreated: No Fear: No (FRANCY HOLDER) Seasonal Allergies Seasonal Allergies: No (FRANCY HOLDER) Past Medical History Surgeries: Yes Cardiac: Yes Hypertension 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 Endocrine: Yes Diabetes, Non-Insulin dep (FRANCY HOLDER) Physical Exam Vital Signs Vital Signs - First Documented 02/24/19 15:10 Temp 97.9 Pulse 89 Resp 18 B/P (MAP) 118/69 (85) Pulse Ox 93 O2 Delivery Room Air (JONATHAN LU MD) Vital Signs Capillary Refill : Less Than 3 Seconds (FRANCY HOLDER) General Appearance: WD/WN, no apparent distress Cardiovascular: regular rate, rhythm, no edema, no gallop, no JVD, no murmur Respiratory: chest non-tender, lungs clear, normal breath sounds, no respiratory distress, no accessory muscle use Neurologic/Psychiatric: alert, oriented x 3 Skin: normal color, warm/dry Skin Problem Location: other (Groin) Skin Problem Character: abscess Lymphatic: no adenopathy (FRANCY HOLDER) Progress/Results/Core Measures Results/Orders Vital Signs/I&O 02/24/19 02/24/19 15:10 17:40 Temp 97.9 97.9 Pulse 89 89 Resp 18 18 B/P (MAP) 118/69 (85) 118/69 (85) Pulse Ox 93 93 O2 Delivery Room Air (JONATHAN LU MD) Blood Pressure Mean: 85 Departure Impression Primary Impression: Abscess of genital labia Disposition: 01 HOME, SELF-CARE Condition: Stable Departure-Patient Inst. Decision time for Depature: 17:15 (JONATHAN LU MD) Referrals: AMINA MAR MD (PCP/Family) Primary Care Physician Patient Instructions: Skin Abscess Add. Discharge Instructions: Complete your antibiotics as prescribed. Soak in warm sitz bath with chlorhexidine soap for 20-30 minutes 2 or 3 times a day for the next few days. This will encourage drainage of the abscess. Return to care if you have worsening symptoms including increasing pain, spreading redness, or development of fever. Follow-up with your primary care provider for reexamination next week. All discharge instructions reviewed with patient and/or family. Voiced understanding. Scripts Sulfamethoxazole/Trimethoprim (Bactrim Ds Tablet) 1 Each Tablet 1 EACH PO BID, #20 TAB Prov: JONATHAN LU MD 02/24/19 This patient was interviewed and examined by me personally along with Francy Holder, MS 3. I agree with MS 3 history, physical, and documentation. Patient has had the right labial abscess for a few days. It has been actively draining. She has history of MRSA and thinks this abscess may need to be incised and drained. She denies any fever. Exam: Gen.: Alert, oriented, afebrile HEENT: Normocephalic and atraumatic Heart: Regular rate and rhythm without murmur Lungs: Clear to auscultation bilaterally with normal effort Skin: There is a markedly indurated abscess on the right labia majora. There is a white cord that appears pus filled. Neuro/psych: Alert, oriented, no acute distress, mood and affect normal Skin was cleaned with alcohol. An attempt to incise and drain the abscess was made with a scalpel. However, with a scalpel was placed against the skin it sunk into a pus filled crater. It appeared the abscess had Lesa been draining and emptying on its own. Ultrasound was applied at bedside to confirm no active fluid collection. The fullness noted on exam is likely all induration. Patient was placed on antibiotics and dismissed. (JONATHAN LU MD) FRANCY HOLDER [facility] Feb 24, 2019 16:25 JONATHAN LU MD Feb 24, 2019 17:29
[2019-02-24] MEDS ORDERED: SULF1TAB35 PO (17:29)
[2019-02-24 17:40] VITALS: BP 118/69
== END 2019-02-24 17:40 | disposition home or self-care (01) ==
LOC: EDUNIT# 14:59 → ER FS 15:00
DX: N76.4 Abscess of vulva (principal); I10 Essential (primary) hypertension; E11.9 Type 2 diabetes mellitus without complications; Z88.8 Allergy status to other drugs, medicaments and biological substances; Z88.2 Allergy status to sulfonamides; Z77.22 Contact with and (suspected) exposure to environmental tobacco smoke (acute) (chronic); Z90.710 Acquired absence of both cervix and uterus
CPT/HCPCS: 99282

== ENCOUNTER 2019-08-17 09:16 | Emergency (ER) | payer MEDICAID ==
[~2019-08-17] VITALS: Ht 177.8 cm; Wt 127.5 kg
[~2019-08-17 09:16] MED LIST changes: +SULF1TAB35 PO
[2019-08-17] MEDS ORDERED: IBUPROFEN 800 MG (MOTRIN) TAB PO ONE (09:45)
[2019-08-17] MEDS ORDERED: ACETAMINOPHEN 325 MG TABLET PO ONE (09:45)
[2019-08-17 10:37] LABS: BUN/CREATININE RATIO 12; CALCIUM 8.9 MG/DL (8.5-10.1); CARBON DIOXIDE 23 MMOL/L (21-32); CHLORIDE 101 MMOL/L (98-107); CREATININE SERUM 0.52 MG/DL (0.60-1.30); GFR ESTIMATED > 60; GLUCOSE 242 MG/DL (70-105); SODIUM 134 MMOL/L (135-145)
--- NOTE | 2019-08-17 10:37 | ED General ---
General Chief Complaint: Cough/Cold/Flu Symptoms Stated Complaint: NAUSEA; VOMITING; FEVER; BODY ACHES Nursing Triage Note: Patient presents to the ED with c/o cough, fever, bodyahces. Reports that her symptoms began Tuesday. She states, "I think we have the flu". Nursing Sepsis Screen: No Definite Risk History of Present Illness Date Seen by Provider: Aug 17, 2019 Time Seen by Provider: 09:45 Initial Comments The patient is a 39-year-old female with a history of hypertension and insulin- dependent diabetes who presents with 1-2 days of fevers, upper respiratory congestion, rhinorrhea, dry cough, mild sore throat, nausea, body aches, fatigue and malaise. Daughter has same symptoms developing at around the same time. Patient states that her sugars are usually well-controlled but are running in the 300s since she became ill. She has vomited once or twice, nonbloody. No associated difficulty breathing, decreased urination, diarrhea. Patient walked in and appears to be in absolutely no acute distress and has appropriate vital signs and is afebrile here in the emergency department. She has been taking ejje-rvz-mnfwlhm medication for her symptoms without complete relief. Patient would like Tamiflu to be prescribed for her. Allergies and Home Medications Allergies Coded Allergies: metformin (Verified Allergy, Unknown, nausea/vomiting, 09/30/18) sumatriptan (Verified Allergy, Unknown, syncope, 09/30/18) Home Medications Ondansetron 4 Mg Tab.rapdis, 4 MG PO Q8H Prescribed by: BETZY CISNEROS on 08/17/19 1039 Oseltamivir Phosphate 75 Mg Cap, 75 MG PO BID Prescribed by: BETZY CISNEROS on 08/17/19 1039 Sulfamethoxazole/Trimethoprim 1 Each Tablet, 1 EACH PO BID Prescribed by: JUSTINE SANCHES on 01/17/19 1857 Sulfamethoxazole/Trimethoprim 1 Each Tablet, 1 EACH PO BID Prescribed by: JONATHAN HUA on 02/24/19 1729 Patient Home Medication List Home Medication List Reviewed: Yes Review of Systems Review of Systems Constitutional: see HPI All Other Systems Reviewed Negative Unless Noted: Yes (Negative excepted noted.) Past Dgcagiz-Lidoqv-Xgbcue Hx Past Med/Social Hx: Reviewed Nursing Past Med/Soc Hx Patient Social History Alcohol Use: Denies Use Recreational Drug Use: Yes Drug of Choice: Marijuana Type Used: Cigarettes 2nd Hand Smoke Exposure: No Recent Foreign Travel: No Contact w/Someone Who Travel: No Recent Infectious Disease Expo: No Recent Hopitalizations: No Physical Abuse: No Sexual Abuse: No Mistreated: No Fear: No Seasonal Allergies Seasonal Allergies: Yes Past Medical History Surgeries: Yes (Lap band removed.) Section, Eye Surgery, Gallbladder, Hysterectomy, Oophorectomy, Orthopedic, Tonsillectomy Respiratory: No Cardiac: Yes Hypertension 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 oz. [id number]; 40.00 BMI Method:Stated General Appearance: No Apparent Distress Comments This is a middle-aged female appearing nontoxic and in no acute distress. Head is normocephalic and atraumatic. Neck is supple and nontender. Oropharynx is moist. Lungs are clear to auscultation at all stations. There is a normal S1 and S2 without rubs or gallops and capillary refill is appropriate, less than 2 seconds globally. Abdomen is soft, nontender and nondistended. Skin is warm and dry without cyanosis, clubbing or edema. Psychiatrically, the patient demonstrates appropriate mood and affect and is alert. Progress/Results/Core Measures Suspected Sepsis Recent Fever Within 48 Hours: Yes Infection Criteria Present: Suspected New Infection New/Unexplained Altered Menta: No Sepsis Screen: No Definite Risk SIRS Temperature: Pulse: 73 Respiratory Rate: 20 Blood Pressure 130 /75 Mean: 93 Laboratory Tests 08/17/19 09:55: Creatinine 0.52L Results/Orders Lab Results Laboratory Tests Test 08/17/19 09:55 08/17/19 10:15 Range/Units Sodium Level 134 L 135-145 MMOL/L Potassium Level 4.0 3.6-5.0 MMOL/L Chloride Level 101 98-107 MMOL/L Carbon Dioxide Level 23 21-32 MMOL/L Anion Gap 10 5-14 MMOL/L Blood Urea Nitrogen 6 L 7-18 MG/DL Creatinine 0.52 L 0.60-1.30 MG/DL Estimat Glomerular Filtration Rate > 60 BUN/Creatinine Ratio 12 Glucose Level 242 H 70-105 MG/DL Calcium Level 8.9 8.5-10.1 MG/DL Urine Color YELLOW Urine Clarity CLEAR Urine pH 6.0 5-9 Urine Specific [place] 1.020 1.016-1.022 Urine Protein NEGATIVE NEGATIVE Urine Glucose (UA) NEGATIVE NEGATIVE Urine Ketones NEGATIVE NEGATIVE Urine Nitrite NEGATIVE NEGATIVE Urine Bilirubin NEGATIVE NEGATIVE Urine Urobilinogen 0.2 < = 1.0 MG/DL Urine Leukocyte Esterase NEGATIVE NEGATIVE Urine RBC (Auto) 1+ H NEGATIVE Urine RBC 0-2 /HPF Urine WBC NONE /HPF Urine Squamous Epithelial Cells 2-5 /HPF Urine Crystals NONE /LPF Urine Bacteria FEW H /HPF Urine Casts NONE /LPF Urine Mucus NEGATIVE /LPF Urine Culture Indicated NO My Orders Orders - BETZY CISNEROS MD Influenza A And B Antigens (08/17/19 09:25) Basic Metabolic Panel (08/17/19 09:45) Ua Culture If Indicated (08/17/19 09:45) Ibuprofen Tablet (Motrin Tablet) (08/17/19 09:45) Acetaminophen Tablet/Caplet (Tylenol T (08/17/19 09:45) Medications Given in ED Current Medications Medications Dose Ordered Sig/Martin Route Start Time Stop Time Status Last Admin Dose Admin Acetaminophen 975 mg ONCE ONCE PO 08/17/19 09:45 08/17/19 09:46 DC 08/17/19 10:15 975 MG Ibuprofen 800 mg ONCE ONCE PO 08/17/19 09:45 08/17/19 09:46 DC 08/17/19 10:13 800 MG Vital Signs/I&O 08/17/19 09:46 Temp 36.0 Pulse 73 Resp 20 B/P (MAP) 130/75 (93) Pulse Ox 95 O2 Delivery Room Air Capillary Refill : Less Than 3 Seconds Blood Pressure Mean: 93 Progress Note : Time: 10:35 Progress Note 39-year-old insulin-dependent diabetic female who presents with flulike symptoms for the last 1 or 2 days. Nasopharyngeal flu swab ordered however the patient would prefer to skip this and simply be empirically treated for influenza which I told her I would be glad to do. As her sugars have been elevated in the setting of her acute illness we will run basic chemistries and urinalysis to ensure no diabetic complications or acute metabolic issues today, but rather low suspicion given appropriate vital signs. Patient is quite well-appearing. We'll give ibuprofen and Tylenol and will plan for discharge with Tamiflu and Zofran for nausea and instructions to continue hkmc-jll-dmzvgbe medicines for likely influenza, hydrate copiously and follow up with primary care in the office immediately after the weekend. Patient understands and agrees. Update 1050: Basic chemistries and urine unremarkable; no acidosis or ketonuria and only very mild hyperglycemia which the patient feels comfortable addressing at home with her insulin. We will proceed with discharge home at this time as per plan above. Patient understands that if she feels worse is that of better or develops other new symptoms of concern that she should return to the emergent department immediately for reevaluation. All questions are answered. Departure Impression Primary Impression: Viral upper respiratory illness Disposition: HOME, SELF-CARE Condition: Stable Departure-Patient Inst. Referrals: AMINA MAR MD (PCP/Family) Primary Care Physician Add. Discharge Instructions: Please follow up with your primary care physician in the office after the weekend for reevaluation. In the meantime, continue to take qsod-yyw-nourqkb medication for cold and flu symptoms and you may also take Zofran every 8 hours as needed for any nausea. Use the Tamiflu as prescribed. Drink plenty of fluids and get plenty of rest. Return to the emergency department right away with worsening symptoms or other new concerns. Scripts Oseltamivir Phosphate (Tamiflu) 75 Mg Cap 75 MG PO BID for 5 Days, #10 CAP Prov: BETZY CISNEROS MD 08/17/19 Ondansetron (Ondansetron Odt) 4 Mg Tab.rapdis 4 MG PO Q8H for Nausea, #10 TAB Prov: BETZY CISNEROS MD 08/17/19 BETZY CISNEROS MD Aug 17, 2019 10:37
[2019-08-17] MEDS ORDERED: OSLT75C PO (10:39)
[2019-08-17] MEDS ORDERED: ONDA4TAB11 PO (10:39)
[2019-08-17 10:43] LABS: BACTERIA,URINE FEW /HPF; BILIRUBIN,URINE NEGATIVE (NEGATIVE); CLARITY,URINE CLEAR; COLOR,URINE YELLOW; GLUCOSE, URINE (UA) NEGATIVE (NEGATIVE); KETONES,URINE NEGATIVE (NEGATIVE); LEUKOCYTE ESTERASE ,URINE NEGATIVE (NEGATIVE); NITRITE,URINE NEGATIVE (NEGATIVE); PROTEIN,URINE NEGATIVE (NEGATIVE); RBC,URINE 0-2 /HPF
[2019-08-17 11:16] VITALS: BP 130/75
== END 2019-08-17 11:16 | disposition home or self-care (01) ==
LOC: EDUNIT# 09:16 → ER FS 09:17
DX: J06.9 Acute upper respiratory infection, unspecified (principal); E11.43 Type 2 diabetes mellitus with diabetic autonomic (poly)neuropathy; K31.84 Gastroparesis; Z88.8 Allergy status to other drugs, medicaments and biological substances
CPT/HCPCS: 36415; 80048; 81000; 99283

== ENCOUNTER → 2019-11-15 | Outpatient (CLI) | payer MEDICAID ==
[~2019-11-15] MED LIST changes: +ONDA4TAB11 PO; +OSLT75C PO
--- NOTE | 2019-11-15 14:21 | Diagnostic Imaging Report ---
EXAMINATION: Lumbar spine radiographs, 3 views. COMPARISON: None. HISTORY: 39-year-old female, low back pain. No known injury. FINDINGS: There are 5 lumbar-type vertebral bodies. There is no identified compression deformity or fracture. The disc heights are fairly well-preserved without endplate degenerative changes. The facet joints are grossly unremarkable. There are right upper quadrant surgical clips likely relating to prior cholecystectomy. There are vascular calcifications. The sacroiliac joints are unremarkable in appearance. IMPRESSION: 1. Grossly unremarkable radiographs of the lumbar spine. Dictated by: Dictated on workstation # [id number]
== END ==
LOC: RAD FS 13:45
PROVIDERS: ATTEND Nurse Practitioner
DX: M54.5 Low back pain (principal); Z90.49 Acquired absence of other specified parts of digestive tract
CPT/HCPCS: 72100

== ENCOUNTER 2020-11-06 07:02 | Emergency (ER) | payer MEDICAID ==
[2020-11-06] MEDS ORDERED: KETOROLAC 60 MG/2 ML VIAL IM STA (07:19)
[2020-11-06] MEDS ORDERED: morphine INJ 10 MG/ML 1ML (SYR OR VIAL) IM STA (07:19)
--- NOTE | 2020-11-06 07:23 | ED Lower Extremity ---
General Chief Complaint: Lower Extremity Stated Complaint: LT LEG PAIN Nursing Triage Note: Fell and hurt left knee two weeks ago. Yesterday was doing gardening and heard knee pop. Is now very painful and unable to put much weight on the leg. Is rating pain at 9/10. Has taken tramadol and norco for pain. Nursing Sepsis Screen: No Definite Risk Source: patient History of Present Illness Date Seen by Provider: November 06, 2020 Time Seen by Provider: 07:08 Initial Comments 40 yo female presenting with severe left knee pain. She reports having a fall about 2 weeks ago and was seen by her primary care provider. Not gotten better but then yesterday while doing gardening she went to stand up and heard a pop in her knee. She has had severe pain and been unable to bear full weight. She had tried taking her regular tramadol as well as a hydrocodone 03/29/2025 from her sister. She was still having severe pain and difficulty sleeping overnight. Due to the severe pain and not being able to bear full weight she came to the emergency department to be evaluated. Most of the pain is in the anterior knee and extends down her leg when she tries to move. She denies any head injury or other injuries. Location Injury Occurred: garden at home Onset: yesterday Severity: severe Pain/Injury Location: left knee Method of Injury: twisted Modifying Factors: Worse With Movement Allergies and Home Medications Allergies Coded Allergies: metformin (Verified Allergy, Unknown, nausea/vomiting, 09/30/18) sumatriptan (Verified Allergy, Unknown, syncope, 09/30/18) Home Medications Hydrocodone/Acetaminophen 1 Each Tablet, 1 EACH PO Q4H PRN for PAIN-SEVERE (8- 10) Prescribed by: DEBBIE DELUCA on 11/06/20 0811 Ondansetron 4 Mg Tab.rapdis, 4 MG PO Q8H Prescribed by: BETZY CISNEROS on 08/17/19 1039 Oseltamivir Phosphate 75 Mg Cap, 75 MG PO BID Prescribed by: BETZY CISNEROS on 08/17/19 1039 Sulfamethoxazole/Trimethoprim 1 Each Tablet, 1 EACH PO BID Prescribed by: JUSTINE SANCHES on 01/17/19 1857 Sulfamethoxazole/Trimethoprim 1 Each Tablet, 1 EACH PO BID Prescribed by: JONATHAN HUA on 02/24/19 1729 Patient Home Medication List Home Medication List Reviewed: Yes Review of Systems Constitutional: No chills, No fever EENTM: no symptoms reported Respiratory: no symptoms reported Cardiovascular: no symptoms reported Gastrointestinal: no symptoms reported Genitourinary: no symptoms reported Musculoskeletal: see HPI, joint pain (severe left knee and lower leg pain) Skin: No change in color Psychiatric/Neurological: Denies Numbness, Denies Tingling Past Mpurdym-Qxghkr-Rrgrki Hx Past Med/Social Hx: Reviewed Nursing Past Med/Soc Hx Patient Social History Alcohol Use: Denies Use Drug of Choice: Marijuana Smoking Status: Current Everyday Smoker Type Used: Cigarettes 2nd Hand Smoke Exposure: No Recent Infectious Disease Expo: No Recent Hopitalizations: No Seasonal Allergies Seasonal Allergies: Yes Past Medical History Surgeries: Yes (Lap band removed.) Section, Eye Surgery, Gallbladder, Hysterectomy, Oophorectomy, Orthopedic, Tonsillectomy Respiratory: No Cardiac: Yes Hypertension 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 oz. 118.743661ul; 40.00 BMI Method:Stated General Appearance: WD/WN, obese HEENT: PERRL/EOMI Cardiovascular: normal peripheral pulses, regular rate, rhythm Legs: left leg limited range of motion (due to pain), left leg soft tissue tenderness, left leg swelling (mild swelling to left knee, no joint effusion appreciated) Neurologic/Tendon: normal sensation Neurologic/Psychiatric: alert, oriented x 3 Skin: normal color, warm/dry; No ecchymosis Progress/Results/Core Measures Results/Orders My Orders Orders - DEBBIE DELUCA MD Ketorolac Injection (Toradol Injection) (11/06/20 07:19) Morphine Injection (Morphine Injection (11/06/20 07:19) Ice: Apply To Affected Area (11/06/20 07:20) Knee 3 View Left (11/06/20 07:20) Knee Immobilizer (11/06/20 08:06) Crutches (11/06/20 08:06) Vital Signs/I&O 11/06/20 07:18 Temp 36.6 Pulse 81 Resp 16 B/P (MAP) 168/70 (102) Pulse Ox 96 Blood Pressure Mean: 102 Progress Progress Note #1: Progress Note ice, rest, elevate knee. check xrays of the left knee. give toradol for pain and inflammation, morphine for severe pain since she reports Hydrocodone did not really help last night. Progress Note #2: Progress Note X-rays show tricompartmental arthritis without fracture. Will treat symptomatically with knee immobilizer, crutches for weightbearing as tolerated, ice rest and elevation. Prescribed hydrocodone for severe pain and have her use of a laxative if needed to help prevent constipation. Check back with her primary provider and if continued problems or not improving over the next 5 to 7 days may need either to see orthopedics or have an MRI. 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 There is chondrocalcinosis and meniscal calcifications. There is no opaque loose body. No fracture or dislocation. No evidence for joint effusion. IMPRESSION: Chronic findings with no fracture identified. Dictated on workstation # [id number] Dict: 11/06/20 0737 Trans: 11/06/20 0739 [facility] [id number] Interpreted by: TAMIKO BLAKE Electronically signed by: Departure Impression Primary Impression: Left knee sprain Qualified Codes: S83.92XA - Sprain of unspecified site of left knee, initial encounter Additional Impression: Left knee pain Qualified Codes: M25.562 - Pain in left knee Disposition: 01 HOME, SELF-CARE Condition: Stable Departure-Patient Inst. Decision time for Depature: 08:07 Referrals: AMINA ROBERSON MD (PCP/Family) Primary Care Physician Patient Instructions: How to Use Crutches, Knee Immobilizer (DC), Knee Pain ED, Knee Sprain ED Add. Discharge Instructions: Use Knee immobilizer to stabilize your knee and let it rest over the next 5-7 days. Use crutches for weight bearing as you tolerate it. Ice 20-30 minutes every few hours as needed for pain and swelling. Continue your diclofenac for inflammation and pain. Use the Hydrocodone for severe pain. Check with Dr. Roberson for continued or worsening symptoms as you may need to see Orthopedics or have an MRI. If you are having to take Hydrocodone then consider taking Laxative such as Miralax to help prevent constipation. All discharge instructions reviewed with patient and/or family. Voiced understanding. Scripts Hydrocodone/Acetaminophen (Hydrocodone-Acetamin 10-325 mg) 1 Each Tablet 1 EACH PO Q4H PRN for PAIN-SEVERE (8-10) for 5 Days, #30 TAB 0 Refills Prov: DEBBIE DELUCA MD 11/06/20 Images Extremities-Lower 1 - Severe, Swelling (mild anterior swelling to left knee), Tenderness (complaint of severe pain/tenderness with palpation and movement on anterior aspect left knee.) DEBBIE DELUCA MD November 06, 2020 07:23
--- NOTE | 2020-11-06 07:40 | Diagnostic Imaging Report ---
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 There is chondrocalcinosis and meniscal calcifications. There is no opaque loose body. No fracture or dislocation. No evidence for joint effusion. IMPRESSION: Chronic findings with no fracture identified. Dictated by: Dictated on workstation # [id number]
[2020-11-06] MEDS ORDERED: HYDR-3820 PO (08:11)
[2020-11-06 08:20] VITALS: BP 160/68
== END 2020-11-06 08:20 | disposition home or self-care (01) ==
LOC: EDUNIT# 07:02 → ER FS 07:04
DX: S83.92XA Sprain of unspecified site of left knee, initial encounter (principal); E66.9 Obesity, unspecified; I10 Essential (primary) hypertension; E11.9 Type 2 diabetes mellitus without complications; F17.210 Nicotine dependence, cigarettes, uncomplicated; Z68.41 Body mass index [BMI] 40.0-44.9, adult; Z88.8 Allergy status to other drugs, medicaments and biological substances; X50.0XXA Overexertion from strenuous movement or load, initial encounter
CPT/HCPCS: 73562; 99283; L1830

== ENCOUNTER 2021-02-04 08:51 | Emergency (ER) | payer MEDICAID ==
[~2021-02-04] VITALS: Ht 170 cm; Wt 165.0 kg
[~2021-02-04 08:51] MED LIST changes: +HYDR-3820 PO; -SULF1TAB35 PO; +SULF1TAB38 PO
--- NOTE | 2021-02-04 08:58 | ED General ---
General Stated Complaint: ABD/BACK PAIN Source of Information: Patient Exam Limitations: No Limitations History of Present Illness Date Seen by Provider: Feb 04, 2021 Time Seen by Provider: 08:55 Initial Comments Patient is a 40-year-old female with a history of diabetes and gastroparesis presents with intermittent daily left-sided periumbilical abdominal pain for the past several days. Pain is described as sharp, intense and is worse with palpation and movement. Is not leave relieved with rest and last for hours at a time. Patient is also worse after eating eating. She denies nausea vomiting, hematemesis coffee-ground emesis constipation. She does report chronic diarrhea. No fever chills or sweats. No urinary frequency urgency or dysuria. No other acute symptoms or complaints. Timing/Duration: 6-7 Days Severity: Moderate Modifying Factors: improves with Other Associated Systoms: Other Allergies and Home Medications Allergies Coded Allergies: metformin (Verified Allergy, Unknown, nausea/vomiting, 09/30/18) sumatriptan (Verified Allergy, Unknown, syncope, 09/30/18) Home Medications Hydrocodone/Acetaminophen 1 Each Tablet, 1 EACH PO Q4H PRN for PAIN-SEVERE (8- 10) Prescribed by: DEBBIE DELUCA on 11/06/20 0811 Ondansetron 4 Mg Tab.rapdis, 4 MG PO Q8H Prescribed by: BETZY CISNEROS on 08/17/19 1039 Oseltamivir Phosphate 75 Mg Cap, 75 MG PO BID Prescribed by: BETZY CISNEROS on 08/17/19 1039 Sulfamethoxazole/Trimethoprim 1 Each Tablet, 1 EACH PO BID Prescribed by: JUSTINE SANCHES on 01/17/19 1857 Sulfamethoxazole/Trimethoprim 1 Each Tablet, 1 EACH PO BID Prescribed by: JONATHAN HUA on 02/24/19 1729 Patient Home Medication List Home Medication List Reviewed: Yes Review of Systems Review of Systems Constitutional: see HPI EENTM: see HPI Respiratory: see HPI Cardiovascular: see HPI Gastrointestinal: see HPI Genitourinary: see HPI Musculoskeletal: see HPI Skin: see HPI Psychiatric/Neurological: See HPI Hematologic/Lymphatic: See HPI Immunological/Allergic: see HPI All Other Systems Reviewed Negative Unless Noted: Yes Past Cmqumwo-Jkrejb-Qodaok Hx Patient Social History Tobacco Use?: Yes Seasonal Allergies Seasonal Allergies: Yes Past Medical History Surgeries: Yes (Lap band removed.) Section, Eye Surgery, Gallbladder, Hysterectomy, Oophorectomy, Orthopedic, Tonsillectomy Respiratory: No Cardiac: Yes Hypertension Neurological: No SHOEBLACK History: Hysterectomy Genitourinary: No Gastrointestinal: Yes (Gastroparesis) Musculoskeletal: No Arthritis Endocrine: Yes Diabetes, Insulin dep HEENT: No Cancer: No Psychosocial: Yes Anxiety, Bipolar, Depression Integumentary: No Blood Disorders: No Physical Exam Vital Signs Vital Signs - First Documented 02/04/21 09:22 Temp 36.0 Pulse 73 Resp 16 B/P (MAP) 130/53 (78) Pulse Ox 99 O2 Delivery Room Air Capillary Refill : Height, Weight, BMI Height: 5'9.00" Weight: 262lbs. oz. 118.029694jn; 40.00 BMI Method:Stated General Appearance: No Apparent Distress, WD/WN, Anxious Eyes: Bilateral Eye Normal Inspection, Bilateral Eye PERRL, Bilateral Eye EOMI HEENT: PERRL/EOMI, Normal ENT Inspection, Pharynx Normal Neck: Full Range of Motion, Non Tender, Supple Respiratory: Lungs Clear Cardiovascular: Regular Rate, Rhythm Gastrointestinal: Soft; No Distended, No Guarding; Hernia, Tenderness, Other (Midline, superior umbilical hernia, nontender, easily reduces) Back: Normal Inspection Focused Exam Sepsis Stage: Ruled Out Progress/Results/Core Measures Suspected Sepsis SIRS Temperature: Pulse: Respiratory Rate: Laboratory Tests 02/04/21 09:14: White Blood Count 12.4H Blood Pressure / Mean: Laboratory Tests 02/04/21 09:14: Creatinine 0.63, Platelet Count 317, Total Bilirubin 0.2 Results/Orders Lab Results Laboratory Tests Test 02/04/21 09:07 02/04/21 09:14 Range/Units Urine Color YELLOW Urine Clarity CLEAR Urine pH 5.0 5-9 Urine Specific [place] 1.025 H 1.016-1.022 Urine Protein NEGATIVE NEGATIVE Urine Glucose (UA) 3+ H NEGATIVE Urine Ketones NEGATIVE NEGATIVE Urine Nitrite NEGATIVE NEGATIVE Urine Bilirubin NEGATIVE NEGATIVE Urine Urobilinogen 0.2 < = 1.0 MG/DL Urine Leukocyte Esterase NEGATIVE NEGATIVE Urine RBC (Auto) NEGATIVE NEGATIVE Urine RBC NONE /HPF Urine WBC RARE /HPF Urine Squamous Epithelial Cells 10-25 H /HPF Urine Crystals NONE /LPF Urine Bacteria MODERATE H /HPF Urine Casts NONE /LPF Urine Mucus NEGATIVE /LPF Urine Culture Indicated NO White Blood Count 12.4 H 4.3-11.0 10^3/uL Red Blood Count 4.91 4.35-5.85 10^6/uL Hemoglobin 14.6 11.5-16.0 G/DL Hematocrit 43 35-52 % Mean Corpuscular Volume 87 80-99 FL Mean Corpuscular Hemoglobin 30 25-34 PG Mean Corpuscular Hemoglobin Concent 34 32-36 G/DL Red Cell Distribution Width 13.2 10.0-14.5 % Platelet Count 317 130-400 10^3/uL Mean Platelet Volume 10.2 7.4-10.4 FL Immature Granulocyte % (Auto) 1 % Neutrophils (%) (Auto) 68 42-75 % Lymphocytes (%) (Auto) 21 12-44 % Monocytes (%) (Auto) 6 0-12 % Eosinophils (%) (Auto) 3 0-10 % Basophils (%) (Auto) 1 0-10 % Neutrophils # (Auto) 8.5 H 1.8-7.8 X 10^3 Lymphocytes # (Auto) 2.7 1.0-4.0 X 10^3 Monocytes # (Auto) 0.8 0.0-1.0 X 10^3 Eosinophils # (Auto) 0.3 0.0-0.3 10^3/uL Basophils # (Auto) 0.1 0.0-0.1 10^3/uL Immature Granulocyte # (Auto) 0.1 0.0-0.1 10^3/uL Sodium Level 134 L 135-145 MMOL/L Potassium Level 4.5 3.6-5.0 MMOL/L Chloride Level 100 98-107 MMOL/L Carbon Dioxide Level 22 21-32 MMOL/L Anion Gap 12 5-14 MMOL/L Blood Urea Nitrogen 15 7-18 MG/DL Creatinine 0.63 0.60-1.30 MG/DL Estimat Glomerular Filtration Rate 104 BUN/Creatinine Ratio 24 Glucose Level 290 H 70-105 MG/DL Calcium Level 9.7 8.5-10.1 MG/DL Corrected Calcium 9.8 8.5-10.1 MG/DL Total Bilirubin 0.2 0.1-1.0 MG/DL Aspartate Amino Transf (AST/SGOT) 17 5-34 U/L Alanine Aminotransferase (ALT/SGPT) 13 0-55 U/L Alkaline Phosphatase 144 H 40-136 U/L Total Protein 7.0 6.4-8.2 GM/DL Albumin 3.9 3.2-4.5 GM/DL Lipase 38 8-78 U/L My Orders Orders - CHAVEZ SHARIF DO Cbc With Automated Diff (02/04/21 09:08) Comprehensive Metabolic Panel (02/04/21 09:08) Lipase (02/04/21 09:08) Urinalysis (02/04/21 09:08) Urine Bedside (02/04/21 09:08) Ns Iv 1000 Ml (Sodium Chloride 0.9%) (02/04/21 09:15) Famotidine Injection (Pepcid Injection) (02/04/21 09:15) Ct Abdomen/Pelvis W (02/04/21 09:10) Iohexol Injection (Omnipaque 350 Mg/Ml 1 (02/04/21 10:00) Received Contrast (Hold Metformin- Contr (02/04/21 10:00) Sodium Chloride Flush (Catheter Flush Sy (02/04/21 10:00) Ns (Ivpb) (Sodium Chloride 0.9% Ivpb Bag (02/04/21 10:00) Us Non Ob Pelvis Comp/Transvag (02/04/21 11:05) Medications Given in ED Current Medications Medications Dose Ordered Sig/Martin Route Start Time Stop Time Status Last Admin Dose Admin Famotidine 20 mg ONCE ONCE IVP 02/04/21 09:15 02/04/21 09:16 DC 02/04/21 09:18 20 MG Iohexol 100 ml ONCE ONCE IV 02/04/21 10:00 02/04/21 10:01 DC 02/04/21 10:20 100 ML Sodium Chloride 10 ml NEEDED PRN IV 02/04/21 10:00 02/04/21 10:20 10 ML Sodium Chloride 100 ml ONCE ONCE IV 02/04/21 10:00 02/04/21 10:01 DC 02/04/21 10:20 100 ML Vital Signs/I&O 02/04/21 09:22 Temp 36.0 Pulse 73 Resp 16 B/P (MAP) 130/53 (78) Pulse Ox 99 O2 Delivery Room Air Capillary Refill : Departure Communication (Admissions) CT abdomen pelvis: Central midline hernia, fat-containing, 3.5 cm L ovarian cyst. Patient with vague left periumbilical pain x1 week. Concern for possible hernia versus colitis versus pain from gastroparesis versus versus diverticulitis, versus unknown cause. Lab work diagnostic. CT indeterminant. Pelvic ultrasound reveals simple cyst not likely contributing to pain syndrome. Suspect symptoms to be related to gastroparesis versus peptic ulcer disease. Will place on Pepcid and Bentyl with PCP follow-up for further management. Return precautions reviewed. Patient verbalizes understanding agreement discharge instructions prior to departure. Impression Primary Impression: Left sided abdominal pain Disposition: HOME, SELF-CARE Condition: Stable Departure-Patient Inst. Referrals: AMINA MAR MD (PCP/Family) Primary Care Physician Patient Instructions: Abdominal Pain, Adult ED Add. Discharge Instructions: You were evaluated in the emergency department for abdominal pain. CT, ultrasound and lab studies were performed and are nondiagnostic. Exact cause of your symptoms have not been determined but may be related to gastroparesis or peptic ulcer disease. Please take newly prescribed medications as directed and take Tylenol as needed for additional relief. Follow-up with your PCP in 2 to 3 days for reevaluation. Return to the ED if new or worsening symptoms. Scripts Dicyclomine HCl (Bentyl) 20 Mg/2 Ml Inj 20 MG IM QID, #40 EA Prov: CHAVEZ SHARIF DO 02/04/21 Famotidine (Pepcid) 20 Mg Tablet 20 MG PO BID, #30 TAB Prov: CHAVEZ SHARIF DO 02/04/21 CHAVEZ SHARIF DO Feb 04, 2021 08:58
[2021-02-04] MEDS ORDERED: FAMOTIDINE 20MG/2ML IV (PEPCID) IVP ONE (09:15)
[2021-02-04] MEDS ORDERED: NS IV 1000 ML 1,000 ML IV SCH (09:15)
[2021-02-04 09:31] LABS: BACTERIA,URINE MODERATE /HPF; BILIRUBIN,URINE NEGATIVE (NEGATIVE); CLARITY,URINE CLEAR; COLOR,URINE YELLOW; GLUCOSE, URINE (UA) 3+ (NEGATIVE); KETONES,URINE NEGATIVE (NEGATIVE); LEUKOCYTE ESTERASE ,URINE NEGATIVE (NEGATIVE); NITRITE,URINE NEGATIVE (NEGATIVE); PROTEIN,URINE NEGATIVE (NEGATIVE); WBC,URINE RARE /HPF
[2021-02-04 09:32] LABS: BASOPHILS % (AUTO) 1 % (0-10); EOSINOPHILS % (AUTO) 3 % (0-10); HEMATOCRIT 43 % (35-52); HEMOGLOBIN 14.6 G/DL (11.5-16.0); LYMPHOCYTES % (AUTO) 21 % (12-44); MEAN CORPUSCULAR HEMOGLOBIN 30 PG (25-34); MEAN CORPUSCULAR HGB CONC 34 G/DL (32-36); MEAN CORPUSCULAR VOLUME 87 FL (80-99); MEAN PLATELET VOLUME 10.2 FL (7.4-10.4); MONOCYTES % (AUTO) 6 % (0-12); NEUTROPHILS % (AUTO) 68 % (42-75); PLATELET COUNT 317 10^3/uL (130-400); WHITE BLOOD COUNT 12.4 10^3/uL (4.3-11.0)
[2021-02-04 09:33] LABS: BASOPHILS # (AUTO) 0.1 10^3/uL (0.0-0.1); EOSINOPHILS # (AUTO) 0.3 10^3/uL (0.0-0.3); LYMPHOCYTES # (AUTO) 2.7 X 10^3 (1.0-4.0); MONOCYTES # (AUTO) 0.8 X 10^3 (0.0-1.0); NEUTROPHILS # (AUTO) 8.5 X 10^3 (1.8-7.8)
[2021-02-04 09:47] LABS: BILIRUBIN,TOTAL 0.2 MG/DL (0.1-1.0); CALCIUM 9.7 MG/DL (8.5-10.1); CREATININE SERUM 0.63 MG/DL (0.60-1.30); POTASSIUM 4.5 MMOL/L (3.6-5.0)
[2021-02-04 09:48] LABS: ALBUMIN 3.9 GM/DL (3.2-4.5)
[2021-02-04] MEDS ORDERED: IOHEXOL 350 MG/ML 100 ML (OMNIPAQUE 350) VIAL IV ONE (10:00)
[2021-02-04] MEDS ORDERED: CATHETER FLUSH 10 ML SYR IV PRN (10:00)
[2021-02-04] MEDS ORDERED: HOLD METFORMIN - RECEIVED CONTRAST 20 ML VIAL IV SCH (10:00)
[2021-02-04] MEDS ORDERED: NS 100 ML (IVPB) BAG IV ONE (10:00)
--- NOTE | 2021-02-04 10:49 | Diagnostic Imaging Report ---
PROCEDURE: CT abdomen and pelvis with contrast. TECHNIQUE: Multiple contiguous axial images were obtained through the abdomen and pelvis after administration of intravenous contrast. Auto Exposure Controls were utilized during the CT exam to meet ALARA standards for radiation dose reduction. All CT scans use one or more of the following dose optimizing techniques: automated exposure control, MA and/or KvP adjustment based on patient size and exam type or iterative reconstruction. INDICATION: Left upper quadrant abdominal pain. COMPARISON: None. FINDINGS: Ill-defined heterogeneous decreased enhancement/low-attenuation in the anterior liver may represent some focal fatty infiltration. Cholecystectomy. Fat-containing anterior abdominal wall hernia along the midline superiorly which measures 6.5 x 5.0 cm and contains a cylindrical foreign body measuring up to 2.1 x 0.6 cm. No associated inflammatory change or fluid collections. The pancreas, spleen, adrenals, kidneys, collecting systems, and bladder are negative. Hysterectomy. Normal appendix. Nonspecific cyst in the left ovary measuring up to 3.5 cm. The left ovary measures 5.8 x 3.4 cm in total. No free intraperitoneal air or fluid. No lymphadenopathy. No evidence of bowel obstruction. No acute osseous findings. IMPRESSION: 1. Nonspecific cyst within an enlarged left ovary measuring up to 3.5 cm. Although findings may be due to a simple cyst, this is indeterminate and a cystic mass or ovarian torsion cannot be excluded. Recommend further evaluation with pelvic ultrasound. No free fluid in the pelvis. 2. Fat-containing anterior abdominal wall hernia containing a cylindrical foreign body without associated inflammatory change or fluid collection. Recommend correlation with history. 3. Nonspecific low-attenuation/decreased enhancement in the anterior liver may be due to focal fatty infiltration. No discrete mass or fluid collection is identified. This could be better evaluated with a nonemergent multiphase contrast-enhanced CT of the liver. Dictated by: Dictated on workstation # [id number]
--- NOTE | 2021-02-04 11:57 | Diagnostic Imaging Report ---
PROCEDURE: Pelvic comp/transvaginal sonogram. TECHNIQUE: Complete transabdominal and transvaginal pelvic ultrasound was performed. In addition, limited pelvic Doppler was performed. INDICATION: Abnormal CT scan demonstrating enlarged left ovary. The study is performed for further evaluation. Correlation is made with CT study from earlier today. The uterus and right ovary are surgically absent. Left ovary measures 5.5 x 3.3 x 4.0 cm. Left ovary does contain a 2.7 x 3.1 x 3.2 cm cyst, likely accounting for the CT abnormality. There is blood flow to the left ovary. There are multiple small follicles within the left ovary. No free fluid is seen. IMPRESSION: 1. Status post hysterectomy and right oophorectomy. 2. 3.2 cm left ovarian cyst, likely accounting for the CT abnormality. No other significant abnormality is seen. Dictated by: Dictated on workstation # [id number]
[2021-02-04] MEDS ORDERED: FAMO-119 PO (12:43)
[2021-02-04] MEDS ORDERED: DCCL10A2 IM (12:43)
[2021-02-04 12:45] VITALS: BP 138/62
--- OUTSIDE RECORDS SUMMARY | 2021-02-04 22:26 | XMS REPORT | Encounter Summary ---
Author Author [facility] Address Unknown Phone Unavailable Care Team Providers Care Amusement Ride Inspector Name Role Phone Tricia Roberson MD PCP Reason for Referral * (Routine) Referred By Contact Referred To Contact Status Reason Specialty Diagnoses / [place] [id number] [address] [place] [address] Closed Diagnoses Leukocytosis, unspecified type P rocedures BCR/ABL FISH (for diagnosis) Electronically signed by Jcarlos Barahona NP at Reason for Visit * Consultation (Routine) Referred By Contact Referred To Contact Status Reason Specialty Diagnoses / Procedures Tricia Roberson MD [address] [facility] [address] [place] [address] [facility] [address] [facility] [address] [place] [address] Closed Specialty Services Hematology and Diagnoses Required Oncology / Leukocytosis, Medical Oncology unspecified type Encounter Details Care Team Description Date [place] [id number] [address] [address] [place] [address] Leukocytosis, unspecified type; Rheumatoid arthritis involving multiple sites, unspecified whether rheumatoid factor present (HCC); Tobacco abuse 01/08/2021 Initial consult [facility] [id number] [address] [place], [place] [id number] Social History Date Tobacco Use Types Packs/Day Years Used Current Every Day Smoker Cigarettes 0.5 20 Smokeless Tobacco: Never Used Comments Alcohol Use Standard Drinks/Week No 0 (1 standard drink = 0.6 o z pure alcohol) Sex Assigned at Date Recorded Not on file documented as of this encounter Last Filed Vital Signs Reading Time Taken Comments Vital Sign 160/65 01/08/2021 10:20 AM CDT Blood Pressure 77 01/08/2021 10:20 AM CDT Pulse 36.3 C (97.4 F) 01/08/2021 10:20 AM CDT Temperature - - Respiratory Rate 97% 01/08/2021 10:20 AM CDT Oxygen Saturation - - Inhaled Oxygen Concentration 138.4 kg (305 lb 1.6 oz) 01/08/2021 10:20 AM CDT Weight 175.3 cm (5' 9") 01/08/2021 10:20 AM CDT Height 45.06 01/08/2021 10:20 AM CDT Body Mass Index documented in this encounter Patient Instructions * Patient Instructions* Olamide Dumont RN - 01/08/2021 10:30 AM CDT Follow-up to be determined after labs resulted. documented in this encounter Progress Notes * Jcarlos Barahona NP - 01/08/2021 10:30 AM CDT Images from the original note were not included. [address] [facility] [address] [place] [address] HEMATOLOGY/ONCOLOGY NOTE ASSESSMENT AND PLAN: 1. Leukocytosis, unspecified type Ambulatory referral to Hematology CBC and Diff (manual diff if necessary) Leukemia/Lymphoma Panel Flow Cytometry BCR/ABL FISH (for diagnosis) Erythrocyte Sedimentation Rate C-Reactive Protein 2. Rheumatoid arthritis involving multiple sites, unspecified whether rheumatoid factor present (HCC) 3. Tobacco abuse Leukocytosis of unclear etiology This is an initial evaluation for leukocytosis with a predominance of granulocyt es and intermittent elevations of lymphocytes. This has been a chronic finding dating back to 2016. Differentials include leukocytosis secondary to chronic in flammation from recently diagnosed rheumatoid arthritis, or possible chronic reyes kemias. Her smoking history may also play some role in leukocytosis. Her other cell lines remain WNL which is an encouraging finding at this time. We discussed the need for further work up. I discussed with her Dr. Karen shirley as also reviewed her history with me prior to today's appointment and has provid ed his input on the work up outlined below. The patient is agreeable to proceed ing with further testing. Plan: Repeat CBCD to trend Obtain Flow cytometry, BRR-ABL FISH, CRP, sed rate Follow up will be determined on above lab testing Smoking cessation encouraged CHIEF COMPLAINT: Fatigue; joint pain Primary Care Tricia Roberson MD [phone] Referring Provider Tricia Roberson MD ONCOLOGY HISTORY: Cancer Staging No matching staging information was found for the patient. Oncology / Hematology History No history exists. HPI/INTERVAL HISTORY: This is an initial hematology visit for Rebeca Sanchez, a 40 y/o female who has been referred to us by her PCP, Dr. Roberson, for chronic leukocytosis dating back to March of 2016. Rebeca has a PMH significant for diabetes, chronic joint pain, diabetic periphe ral neuropathy, hypertension, hyperlipidemia, and generalized anxiety and bipola r disorder. She is a current everyday smoker with a 20 pack year history. She i s obese. She was recently evaluated by [facility] and was told she franco s moderate rheumatoid arthritis. Her pain is in her hips, hands and upper back. She has a follow up with her PCP in early January to discuss treatment options. Review of all labs available in [facility] reveals white count ranging from 10.51-16.9 4 from labs obtained beginning April 02, 2016 through the most recent reading o f 13.0 on October 28, 2020. Granulocytes have been chronically elevated and are 8.33 on the most recent lab. On two occassions her lymphocytes have been elevated, November 24, 2018 and October 28, 2020. Leukocytes were 3.57 on the most recent lab from October 2020. Hemoglobin is normal at 14.3. Platelets are normal at 379. Other pertinent labs include an elevated rheumatoid factor of 60 on labs per /08/2020. As per above, she has recently been diagnosed with moderate RA. At today's appointment the patient complains of continued body aches. She denie s fever, night sweats, or unintentional weight loss. She denies current lymph no de swelling but states she sometimes has some swelling in her axilla. She denie s recurrent infections. She denies alcohol use or recent drug use. Outpatient Encounter Medications as of 01/08/2021 Medication Sig Dispense Refill buPROPion (WELLBUTRIN SR) 100 mg SR 12 hr tablet Take 1 tablet (100 mg total ) by mouth 2 (two) times a day. 60 tablet 5 buPROPion (WELLBUTRIN XL) 150 MG XL 24 hr tablet TAKE 1 TABLET(150 MG) BY MO UTH EVERY MORNING 90 tablet 1 busPIRone (BUSPAR) 10 MG tablet TAKE 1 TABLET BY MOUTH THREE TIMES DAILY FOR ANXIETY 270 tablet 1 codeine-guaifenesin (GUAIFENESIN AC) 10-100 mg/5 mL liquid Take 5 mL by mout h 3 (three) times a day as needed for cough. Max Daily Dose: 15 mL 120 mL 0 DULoxetine (CYMBALTA) 30 mg capsule TAKE 1 CAPSULE(30 MG) BY MOUTH DAILY 30 capsule 0 erythromycin base (E-MYCIN) 250 MG tablet TAKE 1 TABLET(250 MG) BY MOUTH THR EE TIMES DAILY 270 tablet 1 gabapentin (NEURONTIN) 400 MG capsule TAKE 1 CAPSULE(400 MG) BY MOUTH THREE TIMES DAILY 90 capsule 1 hydrOXYzine (ATARAX) 25 MG tablet TAKE 1 TABLET(25 MG) BY MOUTH EVERY 8 HOUR S NEEDED FOR ITCHING 270 tablet 0 insulin aspart U-100 (NOVOLOG) 100 unit/mL (3 mL) pen ADMINISTER 30 UNITS UN JADE THE SKIN THREE TIMES DAILY WITH MEALS 30 mL 3 lancing device with lancets Kit Use three daily 100 each 11 lisinopriL (PRINIVIL,ZESTRIL) 20 MG tablet TAKE 1 TABLET(20 MG) BY MOUTH MARY LY 90 tablet 1 montelukast (SINGULAIR) 10 mg tablet TAKE 1 TABLET(10 MG) BY MOUTH EVERY NIG HT 90 tablet 0 ONETOUCH ULTRASOFT LANCETS lancets USE THREE DAILY 11 ONETOUCH VERIO TEST STRIPS test strips Use one strip to check blood sugars t hree times daily 100 each 3 pen needle, diabetic (BD ULTRA-FINE SHORT) 31 gauge x 5/16" pen needles USE 1 TIME DAILY WITH LANTUS. WILL NEED UP TO 3 DAILY WITH MEALTIME COVERAGE. 4 TOTA L DAILY 400 each 1 sertraline (ZOLOFT) 100 mg tablet TAKE 2 TABLETS(200 MG) BY MOUTH DAILY 90 t ablet 1 simvastatin (ZOCOR) 20 MG tablet TAKE 1 TABLET BY MOUTH EVERY NIGHT 90 table t 1 traMADoL (ULTRAM) 50 mg tablet Take 2 tablets (100 mg total) by mouth every 8 (eight) hours as needed for pain. Max Daily Dose: 300 mg 180 tablet 1 trazodone (DESYREL) 100 MG tablet TAKE 3 TABLETS(300 MG) BY MOUTH EVERY NIGH T 9 tablet 0 TRESIBA FLEXTOUCH U-100 100 unit/mL (3 mL) pen INJECT 65-90 UNITS UNDER THE SKIN TWICE DAILY. TOTAL OF 182 UNITS PER DAY 45 mL 3 VICTOZA 3-MARGARITA 0.6 mg/0.1 mL (18 mg/3 mL) pen ADMINISTER 1.8 MG UNDER THE SKI N DAILY 9 mL 0 [DISCONTINUED] buPROPion (WELLBUTRIN XL) 150 MG XL 24 hr tablet TAKE 1 TABLE T(150 MG) BY MOUTH EVERY MORNING 90 tablet 1 [DISCONTINUED] traZODone (DESYREL) 100 MG tablet TAKE 3 TABLETS(300 MG) BY M OUTH EVERY NIGHT 90 tablet 0 No facility-administered encounter medications on file as of 01/08/2021. Past Medical History: Diagnosis Date Bipolar disorder (HCC) Blue nevus of left shoulder Diabetes mellitus, type II (HCC) Hypertension Infectious viral hepatitis Seizures (HCC) Cancer-related family history is not on file. Social History Tobacco Use Smoking status: Current Every Day Smoker Packs/day: 0.50 Years: 20.00 Pack years: 10.00 Types: Cigarettes Smokeless tobacco: Never Used Vaping Use Vaping Use: Never used Substance Use Topics Alcohol use: No Drug use: No ECOG PERFORMANCE STATUS 1 - Symptomatic but completely ambulatory PHYSICAL EXAM Weight: (!) 138.4 kg (305 lb 1.6 oz) Height: 175.3 cm (5' 9") BSA (Calculated - sq m): 2.472 sq meters BMI (Calculated): 45 BP: (!) 160/65 BP Location: Right arm Patient position: Sitting Pulse: 77 Temp: 97.4 F Temp src: Oral SpO2: 97 % Pain Score: 8 Physical Exam Constitutional: She is oriented to person, place, and time. She appears well-dev eloped and well-nourished. No distress. HENT: Head: Normocephalic and atraumatic. Eyes: Conjunctivae are normal. Cardiovascular: Normal rate, regular rhythm and normal heart sounds. Pulmonary/Chest: Breath sounds normal and unlabored respirations. No respiratory distress. Abdominal: Soft. Bowel sounds are normal. Abdomen obese Lymphadenopathy: Negative for palpable supraclavicular nodes, palpable cervical nodes, palpable axillary nodes and palpable inguinal nodes. Neurological: She is alert and oriented to person, place, and time. Skin: Skin is warm. Psychiatric: She has a normal mood and affect. Her behavior is normal. Judgment and thought content normal. Vitals reviewed. Time equals 45 minutes. This is based on total time spent on date of encounter for review of patient's record prior to visit, performing history and physical e xamination during the visit, counseling and educating the patient and family, do cumenting clinical information in the patient's EHR, independent examination and interpretation of labs and images, and ordering tests and treatment as it appli es. documented in this encounter Plan of Treatment Care Team Description Date Type Specialty Tricia Roberson MD [address] [facility] [address] [place] [address] [phone] 02/06/2021 Office Visit Primary Care documented as of this encounter Results * C-Reactive Protein (01/08/2021 11:33 AM CDT) C Reactive 14.7 (H)Comment: Infection or 0.0 - 10.0 mg/L [facility] Protein Inflammation >10.0 mg/L Hospital Lab Specimen Blood Performing Organization Address City/Va Hospital/ZIP Code P bertram Number [address] [address] LABORATORIES [facility] [address] [place] [address] * Erythrocyte Sedimentation Rate (01/08/2021 11:33 AM CDT) Sed Rate 18 (H) 0 - 17 mm/h [facility] Specimen Blood Performing Organization Address City/Va Hospital/ZIP Code P bertram Number [facility] [address] [place] [address] LABORATORIES [facility] [address] [place] [address] * BCR/ABL FISH (for diagnosis) (01/08/2021 11:33 AM CDT) SPECIMEN TYPE Neoplastic Blood [facility] RESULTS BCRABL FISH analysis is negative for Childre n's BCR/ABL1 fusion - t(9;22). [facility] INTERP BCRABL Absence of BCR/ABL1 fusion [facility] rules out the diagnosis of [facility] chronic myelocytic leukemia with high confidence. This result does not rule out other myeloproliferative disorders. If neoplasia is suspected, a bone marrow aspirate is recommended for cytogenetic analysis. DISCLAIM BCRABL This test was developed and Children' s its performance [facility] characteristics determined by [facility]. It has not been cleared or approved by the [place] Food and Drug Administration. Test performed at [address] [address] Specimen Blood Performing Organization Address City/State/ZIP Code P bertram Number [address] [place] [address] [address] * Leukemia/Lymphoma Panel Flow Cytometry (01/08/2021 11:33 AM CDT) AP_REPORT-[facility] (unformatted) [facility] [address] [place] [address] FLOW CYTOMETRY REPORT Patient Name: REBECA SANCHEZ. Gender: F : 1980 Specimen Type: Peripheral blood Ordering Physician: JCARLOS BARAHONA Collection Date: 01/08/2021 11:33 [facility]ing [facility] Received Date: 01/08/2021 18:20 Clinical Information: Leukocytosis Interpretation: Peripheral blood, flow cytometry: - No immunphenotypic abnormalities. Total Events: 35,851 Lineage % of Total Population Analysis Cells B-cells: 3 B cells are positive for CD19 and CD20, and express polyclonal surface light chains. T-cells: 21 T cells show normal expression of T cell markers CD2, CD3, CD5, and CD7. The CD4:CD8 ratio is normal. Blasts: <1 Not increased. Lymphocyte [place] RESULTS Lymphocyte [place] T Cell Markers B Cell Markers Additional Markers CD % Intensity CD % Intensity CD % Intensity 2 88 10 1 45 100 3 76 19 10 3/HLA-DR 5 20 10 5 76 19/5 1 7 82 [place]:Lambda 1.5 4 47 8 27 4:8 1.7 Electronically Signed: Franki Gabriel MD 01/12/2021 10:24 AM Total CD markers tested = 13 : Cell surface markers include CD2, CD3, CD4, CD5, CD7, CD8, CD10, CD19, CD20, CD45, HLA-DR, kappa, and lambda. This test was developed and its performance characteristics determined by [facility]. It has not been cleared or approved by the Food and Drug Administration (FDA). This test is used for clinical purposes. It should not be regarded as investigational or for research. The laboratory is regulated under CLIA as qualified to perform high-complexity testing and accredited by the [employer] (CAP). 1 Specimen AP_SPECIMEN Performing Organization Address City/State/ZIP [place] [address] [place] [address] * CBC and Diff (manual diff if necessary) (01/08/2021 11:33 AM CDT) WBC 11.45 (H) 4.00 - 11.00 TH/uL [facility] RBC 4.82 4.00 - 5.00 MIL/uL [facility] Hemoglobin 14.3 12.0 - 15.0 g/dL [facility] Hematocrit 43 36 - 45 % [facility] MCV 89 80.0 - 99.0 fL [facility] MCH 30 27.0 - 34.0 pg [facility] MCHC 33 32 - 36 % [facility] RDW 13.4 11.5 - 14.5 % [facility] Platelet Count 338 140 - 400 TH/uL [facility] MPV 10.8 9.4 - 12.3 fL [facility] Nucleated RBCs 0 0 - 0 /100 [facility] % Neutrophils 61 45 - 78 % [facility] %Lymphocytes 28 15 - 47 % [facility] % Monocytes 7 0 - 12 % [facility] %Eosinophils 2 0 - 7 % [facility] %Basophils 1 0 - 2 % [facility] % Imm Grans 1 0 - 1 % [facility] # Granulocytes 7.10 (H) 1.70 - 6.80 TH/uL [facility] # Lymphocytes 3.19 1.00 - 3.30 TH/uL [facility] # Monocytes 0.82 0.20 - 0.90 TH/uL [facility] # Eosinophils 0.24 0.00 - 0.40 TH/uL [facility] # Basophils 0.09 0.00 - 0.10 TH/uL [facility] Specimen Blood Performing Organization Address City/State/ZIP Code P bertram Number [address] [address] LABORATORIES [facility] [address] [place] [address] documented in this encounter Visit Diagnoses Diagnosis Leukocytosis, unspecified type Rheumatoid arthritis involving multiple sites, unspecified whether rheumatoid factor present (HCC) Tobacco abuse Tobacco use disorder documented in this encounter
--- OUTSIDE RECORDS SUMMARY | 2021-02-04 22:26 | XMS REPORT | Encounter Summary ---
Author Author [facility] Organization [facility] Address Unknown Phone Unavailable Care Team Providers Care Airport Control Operator Name Role Phone Tricia Roberson MD PCP Encounter Details Care Team Description Date Type Department Gricelda Green LPN 12/19/2020 Orders Only [facility] - [facility] [address] [facility] [address] [place] [address] Social History Date Tobacco Use Types Packs/Day Years Used Current Every Day Smoker Cigarettes 0.5 20 Smokeless Tobacco: Never Used Comments Alcohol Use Standard Drinks/Week No 0 (1 standard drink = 0.6 o z pure alcohol) Sex Assigned at Date Recorded Not on file documented as of this encounter Plan of Treatment Care Team Description Date Type Specialty Tricia Roberson MD [address] [facility] [address] [place] [address] 02/06/2021 Office Visit Primary Care documented as of this encounter Visit Diagnoses Not on filedocumented in this encounter
--- OUTSIDE RECORDS SUMMARY | 2021-02-04 22:26 | XMS REPORT | Encounter Summary ---
Author Author [facility] Organization [facility] Address Unknown Phone Unavailable Care Team Providers Care Parasitology Teacher Name Role Phone Tricia Roberson MD PCP Reason for Visit * Reason Comments Medication Refill Encounter Details Care Team Description Date Type Department Tricia Roberson MD [address] [facility] [address] [place] [address] Medication Refill 12/21/[address] [facility] [address] [facility] [address] [place] [address] Social History Date Tobacco Use [...] Type Specialty Tricia Roberson MD [address] [facility] [address] [place] [address] 02/06/2021 Office Visit Primary Care documented as of this encounter Visit Diagnoses Not on filedocumented in this encounter
--- OUTSIDE RECORDS SUMMARY | 2021-02-04 22:26 | XMS REPORT | Encounter Summary ---
Author Author [facility] Organization [facility] Address Unknown Phone Unavailable Care Team Providers Care Companion Caregiver Name Role Phone Tricia Roberson MD PCP Reason for Visit * Reason Onset Date Comments Medication Refill Medication Refill 01/12/2021 Encounter Details Care Team Description Date Type Department Maxx Chapman MD [address] [facility] [address] [place] [address] Medication Refill; Medication Refill 01/11/2021 Refill [facility] [address] [facility] [address] [place] [address] Social History Date Tobacco Use Types Packs/Day Years Used Current Every Day Smoker Cigarettes 0.5 20 Smokeless Tobacco: Never Used Comments Alcohol Use Standard Drinks/Week No 0 (1 standard drink = 0.6 o z pure alcohol) Sex Assigned at Date Recorded Not on file documented as of this encounter Miscellaneous Notes * Addendum Note - Tyson Cerna RN - 01/12/2021 3:31 PM CDT Addended by: TYSON CERNA on: 01/12/2021 03:31 PM Modules accepted: Orders * Telephone Encounter - Tyson Cerna RN - 01/12/2021 2:55 PM CDT jez 10/28/20 fov 02/06/21 documented in this encounter Plan of Treatment Care Team Description Date Type Specialty Tricia Roberson MD [address] [facility] [address] [place] [id number] [phone] 02/06/2021 Office Visit Primary Care documented as of this encounter Visit Diagnoses Not on filedocumented in this encounter
--- OUTSIDE RECORDS SUMMARY | 2021-02-04 22:26 | XMS REPORT | Encounter Summary ---
Author Author [facility] Organization [facility] Address Unknown Phone Unavailable Care Team Providers Care Food Safety Manager Name Role Phone Tricia Roberson MD PCP Reason for Visit * (Routine) Referred By Contact Referred To Contact Status Reason Specialty Diagnoses / [place] [address] [facility] [address] [place] [address] Closed Diagnoses Leukocytosis, unspecified type P rocedures BCR/ABL FISH (for diagnosis) Encounter Details Care Team Description Date [place] [address] [facility] [address] [place] [address] [phone] Leukocytosis, unspecified type 01/08/2021 Lab [facility] - [facility] 1st floor [address] [address], [facility] [address] Social History Date Tobacco Use Types Packs/Day Years Used Current Every Day Smoker Cigarettes 0.5 20 Smokeless Tobacco: Never Used Comments Alcohol Use Standard Drinks/Week No 0 (1 standard drink = 0.6 o z pure alcohol) Sex Assigned at Date Recorded Not on file documented as of this encounter Plan of Treatment Care Team Description Date Type Specialty Tricia Roberson MD [address] [facility] [address] [place] [address] [phone] 02/06/2021 Office Visit Primary Care documented as of this encounter Procedures Comments Procedure Name Priority Date/Time Associated Diag nosis BCR/ABL FISH, BLOOD Routine 01/08/2021 Leukocytos is, unspecified 11:33 AM CDT type LEUKEMIA / LYMPHOMA PANEL Routine 01/08/2021 Leuk ocytosis, unspecified BY FLOW CYTOMETRY 11:33 AM CDT type ERYTHROCYTE SEDIMENTATION Routine 01/08/2021 Leuk ocytosis, unspecified RATE 11:33 AM CDT type C-REACTIVE PROTEIN Routine 01/08/2021 Leukocytosi s, unspecified 11:33 AM CDT type CBC AND DIFF (MANUAL DIFF Routine 01/08/2021 Leuk ocytosis, unspecified IF NECESSARY) 11:33 AM CDT type documented in this encounter Results * C-Reactive Protein (01/08/2021 11:33 AM CDT) C Reactive 14.7 (H)Comment: Infection or 0.0 - 10.0 mg/L [facility] Inflammation >10.0 mg/L [facility] Specimen Blood Performing Organization Address City/[facility]/[place] [address] LABORATORIES [facility] [address] [place] [address] * Erythrocyte Sedimentation Rate (01/08/2021 11:33 AM CDT) Sed Rate 18 (H) 0 - 17 mm/h [facility] Specimen Blood Performing Organization Address City/[facility]/ZIP Code P bertram Number [address] [address] LABORATORIES [facility] [address] [place] [address] * BCR/ABL FISH (for diagnosis) (01/08/2021 11:33 AM CDT) SPECIMEN TYPE Neoplastic Blood [facility] RESULTS BCRABL FISH analysis is negative for Childre n's BCR/ABL1 fusion - t(9;22). [facility] INTERP BCRABL Absence of BCR/ABL1 fusion Children's rules out the diagnosis of [facility] chronic myelocytic leukemia with high confidence. This result does not rule out other myeloproliferative disorders. If neoplasia is suspected, a bone marrow aspirate is recommended for cytogenetic analysis. DISCLAIM BCRABL This test was developed and Children' s its performance [facility] characteristics determined by [facility]. It has not been cleared or approved by the [place] Food and Drug Administration. Test performed at [address] [address] Specimen Blood Performing Organization Address City/State/ZIP Code P bertram Number [facility] [address] [place] [address], [place] [address] [address] * Leukemia/Lymphoma Panel Flow Cytometry (01/08/2021 11:33 AM CDT) AP_REPORT-Horiz [facility] (unformatted) [facility] [address] [place] [address] FLOW CYTOMETRY REPORT Patient Name: REBECA SANCHEZ. Gender: F : 1980 Specimen Type: Peripheral blood Ordering Physician: JCARLOS BARAHONA Collection Date: 01/08/2021 11:33 Ordering Facility: [facility] Received Date: 01/08/2021 18:20 Clinical Information: Leukocytosis [...] is normal. Blasts: <1 Not increased. Lymphocyte [facility] RESULTS Lymphocyte [facility] T Cell Markers B Cell Markers Additional Markers CD % Intensity CD % Intensity CD % Intensity 2 88 10 1 45 100 3 76 19 10 3/HLA-DR 5 20 10 5 76 19/5 1 7 82 [place]:Lambda 1.5 4 47 8 27 4:8 1.7 Electronically Signed: Franki Gabriel MD 01/12/2021 10:24 AM Total CD markers tested = 13 : Cell surface markers include CD2, CD3, CD4, CD5, CD7, CD8, CD10, CD19, CD20, CD45, HLA-DR, kappa, and lambda. This test was developed and its performance characteristics determined by [facility]. It has not been cleared or approved by the Food and Drug Administration (FDA). This test is used for clinical purposes. It should not be regarded as investigational or for research. The laboratory is regulated under CLIA as qualified to perform high-complexity testing and accredited by the [employer] ([employer]). 1 Specimen AP_SPECIMEN Performing Organization Address City/State/ZIP Code P bertram Number [address] [address] [address] [address] * CBC and Diff (manual diff if necessary) (01/08/2021 11:33 AM CDT) WBC 11.45 (H) 4.00 - 11.00 TH/uL [facility] RBC 4.82 4.00 - 5.00 MIL/uL [facility] Hemoglobin 14.3 12.0 - 15.0 g/dL [facility] Hematocrit 43 36 - 45 % [facility] MCV 89 80.0 - 99.0 fL [facility] MCH 30 27.0 - 34.0 pg [facility] MCHC 33 32 - 36 % [facility] RDW 13.4 11.5 - 14.5 % [facility] Platelet Count 338 140 - 400 TH/uL [facility] MPV 10.8 9.4 - 12.3 fL [facility] Nucleated RBCs 0 0 - 0 /100 [facility] % Neutrophils 61 45 - 78 % [facility] %Lymphocytes 28 15 - 47 % [facility] % Monocytes 7 0 - 12 % [facility] %Eosinophils 2 0 - 7 % [facility] %Basophils 1 0 - 2 % [facility] % Imm Grans 1 0 - 1 % [facility] # Granulocytes 7.10 (H) 1.70 - 6.80 TH/uL [facility] # Lymphocytes 3.19 1.00 - 3.30 TH/uL [facility] # Monocytes 0.82 0.20 - 0.90 TH/uL [facility] # Eosinophils 0.24 0.00 - 0.40 TH/uL [facility] # Basophils 0.09 0.00 - 0.10 TH/uL [facility] Specimen Blood Performing Organization Address City/State/ZIP Code P bertram Number [address] [address] LABORATORIES [facility] [address] [place] [address] documented in this encounter Visit Diagnoses Diagnosis Leukocytosis, unspecified type documented in this encounter
--- OUTSIDE RECORDS SUMMARY | 2021-02-04 22:26 | XMS REPORT | Encounter Summary ---
Author Author [facility] Organization [facility] Address Unknown Phone Unavailable Care Team Providers Care Solutions Manager Name Role Phone Tricia Roberson MD PCP Reason for Visit * Reason Comments Medication Refill Encounter Details Care Team Description Date Type Department Jeremías Robin MD [address] [facility] [address] [place] [address] Medication Refill 12/16/2020 Refill [facility] [place] [address] [facility] [address] [place] [address] Social History Date Tobacco Use [...] Type Specialty Tricia Roberson MD [address] [facility] [address] [place] [address] 02/06/2021 Office Visit Primary Care documented as of this encounter Visit Diagnoses Diagnosis Type 2 diabetes mellitus with complicat ion, with long-term current use of insulin (HCC) documented in this encounter
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
--- OUTSIDE RECORDS SUMMARY | 2021-02-04 22:26 | XMS REPORT | Clinical Summary ---
Author Author [facility] Organization [facility] Address Unknown Phone Unavailable Care Team Providers Care Business Services Director Name Role Phone Tricia Roberson MD PP Allergies No known active allergies Medications End Date Status Medication Sig Dispensed Refills Start Date Active FREESTYLE INSULINX strp 11 6 Active escitalopram oxalate 5 (LEXAPRO) 10 MG tablet 6 Active LANTUS SOLOSTAR 100 11 unit/mL (3 mL) inpn 6 Active lisinopril 3 (PRINIVIL,ZESTRIL) 20 MG 6 tablet Active BD INSULIN PEN NEEDLE UF 5 SHORT 31 gauge x 5/16" 6 ndle Active SUMAtriptan (IMITREX) 100 5 MG tablet 6 Active traMADol (ULTRAM) 50 mg 1 tablet 6 Active traZODone (DESYREL) 100 5 MG tablet 6 Active Problems Not on file Social History Date Tobacco Use Types Packs/Day Years Used Current Every Day Smoker Comments Alcohol Use Standard Drinks/Week Not Asked 0 (1 standard drink = 0.6 o z pure alcohol) Sex Assigned at Date Recorded Not on file Last Filed Vital Signs Reading Time Taken Comments Vital Sign 134/80 08/13/2015 8:48 AM CONGRESSIONAL AIDE Blood Pressure 74 08/13/2015 8:48 AM CONGRESSIONAL AIDE Pulse 36.6 C (97.9 F) 08/13/2015 8:48 AM CONGRESSIONAL AIDE Temperature 16 08/13/2015 8:48 AM CONGRESSIONAL AIDE Respiratory Rate 98% 08/13/2015 8:48 AM CONGRESSIONAL AIDE Oxygen Saturation - - Inhaled Oxygen Concentration 104 kg (230 lb) 08/13/2015 8:48 AM CONGRESSIONAL AIDE Weight - - Height - - Body Mass Index Plan of Treatment Health Maintenance Due Date Last Done Comments Cervical Cancer: 1999 Screening Colonoscopy 2018 Results Not on filefrom Last 3 Months Insurance Type Payer Benefit Subscriber ID Effective Phone Address Plan / Dates Group [employer] [place] [id number] 2015-P CARE, INCShanna hopkins - JESSICA [id number] [id number] Care Teams Start Date End Date Business Services Director Relationship Specialty 08/13/15 Tricia Roberson MD PCP - At Risk Specialist [address] [facility] [address] [place] [address]
--- OUTSIDE RECORDS SUMMARY | 2021-02-04 22:26 | XMS REPORT | Encounter Summary ---
Author Author [facility] Organization [facility] Address Unknown Phone Unavailable Care Team Providers Care Pipefitter Name Role Phone Tricia Roberson MD PCP Reason for Visit * Reason Comments Medication Refill Encounter Details Care Team Description Date Type Department Tricia Roberson MD [address] [employer] [facility] [address] [place] [address] Medication Refill 01/02/2021 Refill [facility] [address] [employer] [address] [address] [place] [address] Social History Date Tobacco Use Types Packs/Day Years Used Current Every Day Smoker Cigarettes 0.5 20 Smokeless Tobacco: Never Used Comments Alcohol Use Standard Drinks/Week No 0 (1 standard drink = 0.6 o z pure alcohol) Sex Assigned at Date Recorded Not on file documented as of this encounter Miscellaneous Notes * Telephone Encounter - Courtney Bates LPN - 01/02/2021 11:11 AM CDT LR Trazodone 12.05.2020 SARAHI 10.28.2020 documented in this encounter Plan of Treatment Care Team Description Date Type Specialty Tricia Roberson MD [address] [employer] [facility] [address] [place] [address] 02/06/2021 Office Visit Primary Care documented as of this encounter Visit Diagnoses Not on filedocumented in this encounter
--- OUTSIDE RECORDS SUMMARY | 2021-02-04 22:26 | XMS REPORT | Encounter Summary ---
Author Author [facility] Organization [facility] Address Unknown Phone Unavailable Care Team Providers Care Professor Of Surgery Name Role Phone Tricia Roberson MD PCP Reason for Visit * Reason Onset Date Comments Medication Prior 01/13/2021 Submitted PA for Se rtraline to covermymeds(BPMWTMMM) Waiting on Authorization response Encounter Details Care Team Description Date Type Department Tricia Roberson MD [address] [facility] [address] [place] [address] Medication Prior Authorization (Submitte d PA for Sertraline to covermymeds(BPMWTMMM) Waiting on response) 01/13/2021 Telephone [facility] [address] [facility] [address] [place] [address] Social History Date Tobacco Use Types Packs/Day Years Used Current Every Day Smoker Cigarettes 0.5 20 Smokeless Tobacco: Never Used Comments Alcohol Use Standard Drinks/Week No 0 (1 standard drink = 0.6 o z pure alcohol) Sex Assigned at Date Recorded Not on file documented as of this encounter Miscellaneous Notes * Telephone Encounter - Tiffani Hawkins MA - 01/13/2021 1:22 PM CDT Submitted PA for Sertraline to covermymeds(BPMWTMMM) Waiting on response documented in this encounter Plan of Treatment Care Team Description Date Type Specialty Tricia Roberson MD [address] [facility] [address] [place] [address] [phone] 02/06/2021 Office Visit Primary Care documented as of this encounter Visit Diagnoses Not on filedocumented in this encounter
--- OUTSIDE RECORDS SUMMARY | 2021-02-04 22:26 | XMS REPORT | Encounter Summary ---
Author Author [facility] Organization [facility] Address Unknown Phone Unavailable Care Team Providers Care Provider Relations Representative Name Role Phone Tricia Roberson MD PCP Reason for Visit * Reason Comments Medication Refill Encounter Details Care Team Description Date Type Department [facility] [address] [facility] [address] [place] [address] Medication Refill 12/16/2020 Refill [facility] [address] [facility] [address] [place] [address] Social History Date Tobacco Use [...] Type Specialty Tricia Roberson MD [address] [facility] [address] [place] [address] 02/06/2021 Office Visit Primary Care documented as of this encounter Visit Diagnoses Not on filedocumented in this encounter
== END 2021-02-04 12:45 | disposition home or self-care (01) ==
LOC: EDUNIT# 08:51 → ER FS 08:53
DX: R10.33 Periumbilical pain (principal); E11.43 Type 2 diabetes mellitus with diabetic autonomic (poly)neuropathy; K31.84 Gastroparesis; N83.202 Unspecified ovarian cyst, left side; I10 Essential (primary) hypertension; Z90.722 Acquired absence of ovaries, bilateral; Z90.710 Acquired absence of both cervix and uterus
CPT/HCPCS: 36415; 74177; 76830; 76856; 80053; 81000; 83690; 85025

== ENCOUNTER 2021-04-26 12:25 | Emergency (ER) | payer MEDICAID ==
[~2021-04-26] VITALS: Ht 175.3 cm; Wt 138.7 kg
[~2021-04-26 12:25] MED LIST changes: +DCCL10A2 IM; +FAMO-119 PO
--- OUTSIDE RECORDS SUMMARY | 2021-04-26 12:30 | XMS REPORT | Clinical Summary ---
Author Author [facility] Organization [facility] Address Unknown Phone Unavailable Care Team Providers Care Manager Non Profit Name Role Phone Tricia Roberson MD PCP [...] cough. Max Daily Dose: 15 mL Active erythromycin base TAKE 1 270 tablet [...] DAILY WITH MEALTIME COVERAGE. 4 TOTAL DAILY Active gabapentin (NEURONTIN) TAKE 1 90 capsule 1 400 MG capsule CAPSULE(400 1 MG) BY MOUTH THREE TIMES DAILY Active busPIRone (BUSPAR) 10 MG TAKE 1 TABLET 270 tablet 1 tablet BY MOUTH 1 THREE TIMES DAILY FOR ANXIETY Active buPROPion (WELLBUTRIN SR) Take 1 tablet 60 tablet 5 100 mg SR 12 hr tablet (100 mg 1 total) by mouth 2 (two) times a day. Active lisinopriL TAKE 1 90 tablet 1 (PRINIVIL,ZESTRIL) 20 MG TABLET(20 MG) 1 tablet BY MOUTH DAILY Active sertraline (ZOLOFT) 100 TAKE 2 90 tablet 1 mg tablet TABLETS(200 1 MG) BY MOUTH DAILY Active simvastatin (ZOCOR) 20 MG TAKE 1 TABLET 90 tablet 1 tablet BY MOUTH 1 EVERY NIGHT Active dicyclomine (BENTYL) 10 Take 10 mg by 0 MG capsule mouth 4 (four) times a day before meals and nightly. 08/05/2021 Active hydrOXYchloroQUINE Take 1 tablet 90 tablet 1 02/06 (PLAQUENIL) 200 mg (200 mg 1 tabletIndications: total) by Rheumatoid arthritis mouth daily. involving multiple sites, unspecified whether rheumatoid factor present (HCC) Active metoclopramide (REGLAN) 5 Take 1 tablet 120 tablet 1 MG tablet (5 mg total) 1 by mouth 4 (four) times a day. 08/05/2021 Active tramadoL (ULTRAM) 50 mg Take 2 180 tablet 5 tablet tablets (100 1 mg total) by mouth every 8 (eight) hours as needed for pain. Max Daily Dose: 300 mg Active TRESIBA FLEXTOUCH U-100 INJECT 65-90 45 mL 3 0 100 unit/mL (3 mL) UNITS UNDER 1 penIndications: Type 2 THE SKIN diabetes mellitus with TWICE DAILY. complication, with TOTAL OF 182 long-term current use of UNITS PER DAY insulin (HCC) Active OZEMPIC 0.25 mg or 0.5 Inject 0.5 mg 3 each 3 0 mg(2 mg/1.5 mL) under the 1 syringeIndications: skin every 7 Uncontrolled type 2 (seven) days. diabetes mellitus with hypoglycemia, unspecified hypoglycemia coma status ([facility]) Active semaglutide (OZEMPIC) Inject 0.25 1 each 0 02/25 0.25 mg or 0.5 mg(2 mg under the 1 mg/1.5 mL) skin every 7 syringeIndications: (seven) days Uncontrolled type 2 for 14 days, diabetes mellitus with THEN 0.5 mg hypoglycemia, unspecified every 7 hypoglycemia coma status (seven) days. ([facility]) Active ONETOUCH VERIO TEST USE 1 STRIP 100 strip 1 STRIPS test TO CHECK 1 stripsIndications: Type 2 BLOOD SUGARS diabetes mellitus with THREE TIMES complication, with DAILY long-term current use of insulin ([facility]) Active trazodone (DESYREL) 100 TAKE 3 30 tablet 0 MG tablet TABLETS(300 1 MG) BY MOUTH EVERY NIGHT Active insulin aspart U-100 ADMINISTER 30 30 mL 3 (NOVOLOG) 100 unit/mL (3 UNITS UNDER 1 mL) pen THE SKIN THREE TIMES DAILY WITH MEALS Active HYDROcodone-acetaminophen Take 1 tablet 60 tablet 0 (NORCO) 5-325 mg per by mouth 1 tablet every 12 (twelve) hours as needed for pain. Max Daily Dose: 2 tablets Discontinued (Reorder) buPROPion (WELLBUTRIN XL) TAKE 1 90 tablet 1 150 MG XL 24 hr tablet TABLET(150 0 MG) BY MOUTH EVERY MORNING 04/13/2021 Discontinued insulin aspart U-100 ADMINISTER 30 30 mL 3 (NOVOLOG) 100 unit/mL (3 UNITS UNDER 0 mL) pen THE SKIN THREE TIMES DAILY WITH MEALS Discontinued (Reorder) traZODone (DESYREL) 100 TAKE 3 90 tablet 0 MG tablet TABLETS(300 1 MG) BY MOUTH EVERY NIGHT 04/07/2021 Discontinued ONETOUCH VERIO TEST Use one strip 100 each 3 06/0 STRIPS test to check 1 stripsIndications: Type 2 blood sugars diabetes mellitus with three times complication, with daily long-term current use of insulin ([facility]) 04/07/2021 Discontinued trazodone (DESYREL) 100 TAKE 3 90 tablet 1 MG tablet TABLETS(300 1 MG) BY MOUTH EVERY NIGHT 04/16/2021 Discontinued (Reorder) HYDROcodone-acetaminophen Take 1 tablet 60 tablet 0 (NORCO) 5-325 mg per by mouth 1 tablet every 12 (twelve) hours as needed for pain. Max Daily Dose: 2 tablets Active Problems Problem Noted Date Monocytosis 01/08/2021 [...] Encounters Care Team Description Date Type Specialty Iris Santillan RN Medication Refill 04/16/2021 Refill Primary Care Tricia Roberson MD Medication Refill 04/13/2021 Refill Primary Care Tricia Roberson MD Medication Refill 04/07/2021 Refill Primary Care Jeremías Robin MD Medication Refill 04/07/2021 Refill Endocrinology Gricelda Green LPN Medication Prior Authorization (Ozempic) 03/11/2021 Telephone Endocrinology Michelle Martinez RN Medication Prior Authorization 03/11/2021 Telephone Endocrinology Tricia Roberson MD Rheumatoid arthritis involving multiple sites, unspecified whether rheumatoid factor present (HCC) (Primary Dx) 03/11/2021 Orders Only Primary Care Tricia Roberson MD Medication Refill 03/09/2021 Refill Primary Care Prisca Dewitt MD Medication Prior Authorization; Medicati on Refill; Medication Refill 03/05/2021 Refill Endocrinology Prisca Dewitt MD Medication Refill 03/04/2021 Refill Endocrinology 02/13/2021 Letter (Out) Primary Care Tricia Roberson MD 02/13/2021 Documentation Primary Care Arun Downey RN Medication Problem 02/10/2021 Telephone Primary Care Tricia Roberson MD Medication Prior Authorization (Submitte d PA for Trazodone to covermymeds ([id number]) Waiting on response) 02/10/2021 Telephone Primary Care Tricia Roberson MD Medication Prior Authorization (Submitte d PA for Bupropion to covermymeds ([id number]) Waiting on response ) 02/10/2021 Telephone Primary Care Tricia Roberson MD Follow-up 02/10/2021 Telephone Primary Care Tricia Roberson MD Medication Refill 02/07/2021 Refill Primary Care Tricia Roberson MD Type 2 diabetes mellitus with complicati on, with long-term current use of insulin (HCC) 02/06/2021 Lab Lab Tricia Roberson MD Rheumatoid arthritis involving multiple sites, unspecified whether rheumatoid factor present (HCC) (Primary Dx); Type 2 diabetes mellitus with complication, with long-term current use of insulin (HCC); SHANTEL (generalized anxiety disorder); Tobacco abuse; Essential hypertension; Hyperlipidemia, unspecified hyperlipidemia type; Gastroparesis; Other chronic pain 02/06/2021 Office Visit Primary Care Tricia Roberson MD 02/06/2021 Documentation Lab Tiffani Hawkins MA Rheumatoid arthritis involving multiple sites, unspecified whether rheumatoid factor present (HCC); SHANTEL (generalized anxiety disorder) 02/06/2021 Orders Only Primary Care Prisca Dewitt MD Medication Refill 02/05/2021 Refill Endocrinology Tricia Roberson MD Medication Refill 02/05/2021 Refill Primary Care Tricia Roberson MD Medication Prior Authorization (Submitte d [employer] for Victoza to Covermymeds([id number])--Waiting on response) 02/04/2021 Telephone Primary Care Tricia Roberson MD Medication Refill 01/24/2021 Refill Primary Care from Last 3 Months Immunizations [...] Signs Reading Time Taken Comments Vital Sign 148/66 02/06/2021 11:41 AM CDT Blood Pressure 73 02/06/2021 11:41 AM CDT Pulse 36.4 C (97.6 F) 02/06/2021 11:41 AM CDT Temperature 16 05/30/2019 2:44 PM AIRCRAFT SALES REPRESENTATIVE Respiratory Rate 94% 02/06/2021 11:41 AM CDT Oxygen Saturation - - Inhaled Oxygen Concentration 137.8 kg (303 lb 12.8 oz) 02/06/2021 11:41 AM CDT Weight 175.3 cm (5' 9") 02/06/2021 11:41 AM CDT Height 44.86 02/06/2021 11:41 AM CDT Body Mass Index Plan of Treatment Care Team Description Date Type Specialty Prisca Dewitt MD [address] [facility] [address] [place] [address] 04/28/2021 Office Visit Endocrinology Health Maintenance Due Date Last Done Comments Spirometry # 1978 Diabetes Mellitus 01/04/2017 01/05/2016 Ophthalmology Exam (Previously Completed at Different Location) Diabetes Mellitus Foot 02/23/2017 02/24/2016, Exam 02/24/2016 Cervical Cancer Screening 03/01/2017 03/01/2014, via Pap Smear 03/01/2014, 06/27/2003 Pneumococcal Vaccine: 04/15/2018 04/15/2017 Pediatrics (0 to 5 Years) and At-Risk Patients (6 to 64 Years) (2 of 4 - PCV13) COVID-19 Vaccine (3 - 11/13/2020 10/16/2020, Moderna risk 3-dose 09/18/2020 series) Lipid Screening 08/07/2021 08/07/2020, 08/07/2020, 08/27/2019, Additional history exists Diabetes Mellitus 08/09/2021 02/06/2021, Hemoglobin A1C 10/28/2020, 06/26/2020, Additional history exists Tobacco Cessation 10/28/2021 10/28/2020, Counseling # 10/28/2020, 08/24/2019, Additional history exists Td/Tdap# Discontinued 09/29/2016, 11/04/2012, Influenza Vaccine Discontinued 03/24/2018, 04/15/2017, 05/16/2012, Additional history exists Procedures Comments Procedure Name Priority Date/Time Associated Diag nosis ELECTROCARDIOGRAM Routine 02/06/2021 Rheumatoid a rthritis 1:06 PM CDT involving multiple sites, unspecified whether rheumatoid factor present (HCC) SHANTEL (generalized anxiety disorder) COMPREHENSIVE METABOLIC Routine 02/06/2021 Type 2 diabetes mellitus PANEL 12:45 PM CDT with complication, with long-term current use of insulin (HCC) HEMOGLOBIN A1C Routine 02/06/2021 Type 2 diabetes mellitus 12:45 PM CDT with complication, with long-term current use of insulin ([facility]) from Last 3 Months Results * Electrocardiogram (ECG) (02/06/2021 1:06 PM CDT) Narrative * Hemoglobin A1C (02/06/2021 12:45 PM CDT) Hemoglobin A1C 8.2 (H) 4.0 - 5.6 % [facility] Comment: Hospital Lab Non-diabetic 4.0 - 5.6 % Prediabetes 5.7 - 6.4 % Diabetes >= 6.5 % Specimen Blood Performing Organization Address City/State/ZIP Code P bertram Number [address] [address] LABORATORIES [facility] [address] [place] [id number] * Comprehensive Metabolic Panel (02/06/2021 12:45 PM CDT) Sodium 137 133 - 147 MEQ/L [facility] Potassium 4.7 3.5 - 5.3 MEQ/L [facility] Chloride 102 96 - 112 MEQ/L [facility] Carbon Dioxide 24 20 - 32 MEQ/L [facility] Anion Gap 10 5 - 17 [facility] Calcium 9.5 8.4 - 10.5 mg/dL [facility] Glucose 163 (H) 70 - 100 mg/dL [facility] Protein Total 7.0 6.0 - 8.2 g/dL [facility] Serum [facility] Albumin 4.0 3.5 - 5.0 g/dL [facility] Alkaline 136 42 - 140 IU/L [facility] Alanine 16 0 - 34 IU/L [facility] e Aspartate 26 15 - 46 IU/L [facility] e Bilirubin Total 0.4 0.2 - 1.3 mg/dL [facility] Blood Urea 11 7 - 26 mg/dL [facility] Lab Creatinine 0.6 0.4 - 1.1 mg/dL [facility] eGFR Female AA >130 60 - 200 [facility] mL/min/1.73sq m [facility] Lab eGFR Female 110 60 - 200 [facility] Non-AA mL/min/1.73sq Hospital Lab Specimen Blood Performing Organization Address City/State/ZIP Code P bertram Number [place] [address] [place] [address] LABORATORIES [facility] [address] [place] [address] from Last 3 Months Insurance Type Payer Benefit Subscriber ID Effective Phone Address Plan / Dates Group MEDICAID MANAGED CARE [facility] [id number] 2019- [place] [employer] Present [id number] [place] [address] Advance Directives For more information, please contact: [phone] Patient Toy Maker Explanation Type Date Recorded Power of Riveting Machine Operator Advance Directives 07/05/2016 7:53 AM and Living Will [facility] Care 10/08/2013 10:47 PM Directive Care Teams Start Date End Date Manager Non Profit Relationship Specialty 12/12/14 Tricia Roberson MD PCP - General [address] [facility] [address] [place] [address]
--- OUTSIDE RECORDS SUMMARY | 2021-04-26 12:30 | XMS REPORT | Encounter Summary ---
Author Author [facility] Organization [facility] Address Unknown Phone Unavailable Care Team Providers Care Picked Edge Sewing Machine Operator Name Role Phone Tricia Roberson MD PCP Reason for Referral * Consultation (Routine) - Closed Diagnoses / Procedures Referred By Contact Referred To Conta ct Specialty Diagnoses Rheumatoid arthritis involving multiple sites, unspecified whether rheumatoid factor present (HCC) Tricia Roberson MD [address] [employer] [facility] [address] [facility] [place] [address] Adarsh Wang MD [address] [place] [address] Rheumatology Referral ID Status Reason Start Date Expiration Visits Vi sits Date Requested Authorized [id number] Closed Specialty Services 03/11/2021 09/08/2021 1 1 Required Encounter Details Care Team Description Date Type Department Tricia Roberson MD [address] [employer] [address] [facility] [place] [address] Rheumatoid arthritis involving multiple sites, unspecified whether rheumatoid factor present (HCC) (Primary Dx) 03/11/2021 Orders Only [facility] [address] [employer] [address] [place] [address] Social History Date Tobacco Use [...] Date Type Specialty Prisca Dewitt MD [address] [facility] [address] [place] [address] 04/28/2021 Office Visit Endocrinology Order Schedule Name Type Priority Associated Diag noses 1 Occurrences starting 03/11/2021 until 09/08/2021 Ambulatory referral to Outpatient Routine Rheumat oid arthritis Rheumatology Referral involving multiple sites, unspecified whether rheumatoid factor present (HCC) documented as of this encounter Visit Diagnoses Diagnosis Rheumatoid arthritis involving multiple sites, unspecified whether rheumatoid factor present (HCC) - Primary documented in this encounter Care Teams Start Date End Date Picked Edge Sewing Machine Operator Relationship Specialty 12/12/14 Tricia Roberson MD PCP - General [address] [facility] [address] [place] [id number] documented as of this encounter
--- OUTSIDE RECORDS SUMMARY | 2021-04-26 12:30 | XMS REPORT | Encounter Summary ---
Author Author [facility] Organization [facility] Address Unknown Phone Unavailable Care Team Providers Care Director Of Vocational Guidance Name Role Phone Tricia Roberson MD PCP Reason for Visit * Reason Comments Medication Refill Encounter Details Care Team Description Date Type Department Prisca Dewitt MD [address] [facility] [employer] [facility] [address] [facility] [place] [address] Medication Refill 03/04/2021 Refill [facility]ology Specialists - [facility] [place] [address] [facility] [employer] [facility] [address] [place] [address] Social History Date Tobacco Use Types [...] Type Specialty Prisca Dewitt MD [address] [employer] [facility] [address] [place] [address] 04/28/2021 Office Visit Endocrinology documented as of this encounter Visit Diagnoses Diagnosis Type 2 diabetes mellitus with complicat ion, with long-term current use of insulin (HCC) documented in this encounter Care Teams Start Date End Date Director Of Vocational Guidance Relationship Specialty 12/12/14 Tricia Roberson MD PCP - General [address] [facility] [employer] [facility] [address] [place] [address] documented as of this encounter
--- OUTSIDE RECORDS SUMMARY | 2021-04-26 12:30 | XMS REPORT | Encounter Summary ---
Author Author [facility] Organization [facility] Address Unknown Phone Unavailable Care Team Providers Care Design Engineering Manager Name Role Phone Tricia Roberson MD PCP Reason for Visit * Reason Onset Date Comments Medication Prior 03/11/2021 Authorization Encounter Details Care Team Description Date Type Department Michelle Martinez RN Medication Prior Authorization 03/11/2021 Telephone [facility] Endocr[facility]ology Specialists - [place] [address] [facility] [address] [place] [address] Social History Date Tobacco Use Types Packs/Day Years Used Current Every Day Smoker Cigarettes 0.5 20 Smokeless Tobacco: Never Used Comments Alcohol Use Standard Drinks/Week No 0 (1 standard drink = 0.6 o z pure alcohol) Sex Assigned at Date Recorded Not on file documented as of this encounter Miscellaneous Notes * Telephone Encounter - Michelle Martinez RN - 03/11/2021 12:34 PM CDT PA request for Sal rec'd from [employer]. PA form for [facility] Medicaid filled out and given to Dr. Dewitt for signature. documented in this encounter Plan of Treatment Care Team Description Date Type Specialty Prisca Dewitt MD [address] [facility] [address] [place] [address] 04/28/2021 Office Visit Endocrinology documented as of this encounter Visit Diagnoses Not on filedocumented in this encounter Care Teams Start Date End Date Design Engineering Manager Relationship Specialty 12/12/14 Tricia Roberson MD PCP - General [address] [facility] [address] [place] [address] documented as of this encounter
--- OUTSIDE RECORDS SUMMARY | 2021-04-26 12:30 | XMS REPORT | Encounter Summary ---
Author Author [facility] Organization [facility] Address Unknown Phone Unavailable Care Team Providers Care Cotton Header Name Role Phone Tricia Roberson MD PCP Reason for Visit * Reason Onset Date Comments Medication Prior 03/11/2021 Ozempic Authorization Encounter Details Care Team Description Date Type Department Gricelda Green LPN Medication Prior Authorization (Ozempic) 03/11/2021 Telephone [facility] Endocrinology Specialists - [place] [address] [facility] [address] [place] [address] Social History Date Tobacco Use Types Packs/Day Years Used Current Every Day Smoker Cigarettes 0.5 20 Smokeless Tobacco: Never Used Comments Alcohol Use Standard Drinks/Week No 0 (1 standard drink = 0.6 o z pure alcohol) Sex Assigned at Date Recorded Not on file documented as of this encounter Miscellaneous Notes * Telephone Encounter - Michelle Martinez RN - 03/12/2021 11:52 AM CDT Spoke with Pharmacist Sharon who was able to get the script to go through for 3 0 day supply vs 90 day. * Telephone Encounter - Michelle Martinez RN - 03/12/2021 11:33 AM CDT Rec'd letter from [facility] stating that Ozempic has been previously approved and is a uthorized through 12/2021. Called [employer] to advise and spoke with Az who states that it is still reje cting stating PA required. She will try running it again. * Telephone Encounter - Gricelda Green LPN - 03/11/2021 1:23 PM CDT PA initiated for Ozempic, awaiting determination. Sharon Abdul (Tsai: [id number]) Rx #: [id number] Ozempic (0.25 or 0.5 MG/DOSE) 2MG/1.5ML pen-injectors Form [employer] [place] Medicaid Plan Non-Preferred Medication P rior Authorization Form Plan Contact phone fax documented in this encounter Plan of Treatment Care Team Description Date Type Specialty Prisca Dewitt MD [address] [employer] [facility] [address] [place] [address] 04/28/2021 Office Visit Endocrinology documented as of this encounter Visit Diagnoses Not on filedocumented in this encounter Care Teams Start Date End Date Cotton Header Relationship Specialty 12/12/14 Tricia Roberson MD PCP - General [address] [place] [address] documented as of this encounter
--- OUTSIDE RECORDS SUMMARY | 2021-04-26 12:30 | XMS REPORT | Encounter Summary ---
Author Author [facility] Organization [facility] Address Unknown Phone Unavailable Care Team Providers Care Cardiac Cath Technologist Name Role Phone Tricia Roberson MD PCP Reason for Visit * Reason Comments Medication Refill Encounter Details Care Team Description Date Type Department Jeremías Robin MD [address] [employer] [facility] [address] [facility] [place] [address] Medication Refill 04/07/2021 Refill [facility]ology [facility] - [place] [employer] [address] [facility] [employer] [facility] [address] [place] [address] Social History Date Tobacco Use Types [...] Type Specialty Prisca Dewitt MD [address] [employer] [facility] [address] [place] [address] 04/28/2021 Office Visit Endocrinology documented as of this encounter Visit Diagnoses Diagnosis Type 2 diabetes mellitus with complicat ion, with long-term current use of insulin (HCC) documented in this encounter Care Teams Start Date End Date Cardiac Cath Technologist Relationship Specialty 12/12/14 Tricia Roberson MD PCP - General [address] [facility] [employer] [facility] [address] [facility] [place] [address] documented as of this encounter
--- OUTSIDE RECORDS SUMMARY | 2021-04-26 12:30 | XMS REPORT | Encounter Summary ---
Author Author [facility] Organization [facility] Address Unknown Phone Unavailable Care Team Providers Care Quartz Miner Name Role Phone Tricia Roberson MD PCP Reason for Visit * Reason Onset Date Comments Medication Refill 03/09/2021 Encounter Details Care Team Description Date Type Department Tricia Roberson MD [address] [place] [address] Medication Refill 03/09[facility] [address] [employer] [address] [employer] [place] [address] Social History Date Tobacco Use [...] Type Specialty Prisca Dewitt MD [address] [place], [place] [id number] 04/28/2021 Office Visit Endocrinology documented as of this encounter Visit Diagnoses Not on filedocumented in this encounter Care Teams Start Date End Date Quartz Miner Relationship Specialty 12/12/14 Tricia Roberson MD PCP - General [address] [place] [address] documented as of this encounter
--- OUTSIDE RECORDS SUMMARY | 2021-04-26 12:30 | XMS REPORT | Encounter Summary ---
Author Author [facility] Organization [facility] Address Unknown Phone Unavailable Care Team Providers Care Hr Director Name Role Phone Tricia Roberson MD PCP Reason for Visit * Reason Comments Medication Refill Encounter Details Care Team Description Date Type Department Tricia Roberson MD [address] [place] [address] Medication Refill 04/13[facility]21 [facility] [email or web address] [place] [address] Social History Date Tobacco Use [...] Type Specialty Prisca Dewitt MD [address] [place] [address] 04/28/2021 Office Visit Endocrinology documented as of this encounter Visit Diagnoses Not on filedocumented in this encounter Care Teams Start Date End Date Hr Director Relationship Specialty 12/12/14 Tricia Roberson MD PCP - General [email or web address] [place] [address] documented as of this encounter
--- OUTSIDE RECORDS SUMMARY | 2021-04-26 12:30 | XMS REPORT | Encounter Summary ---
Author Author [facility] Organization [facility] Address Unknown Phone Unavailable Care Team Providers Care Cat And Dog Bather Name Role Phone Tricia Roberson MD PCP Reason for Visit * Reason Onset Date Comments Medication Refill 04/16/2021 Encounter Details Care Team Description Date Type Department Iris Santillan RN Medication Refill 04/16/2021 Refill [facility] [address] [facility] [address] [place], [place] [id number] Social History Date Tobacco Use Types Packs/Day Years Used Current Every Day Smoker Cigarettes 0.5 20 Smokeless Tobacco: Never Used Comments Alcohol Use Standard Drinks/Week No 0 (1 standard drink = 0.6 o z pure alcohol) Sex Assigned at Date Recorded Not on file documented as of this encounter Miscellaneous Notes * Telephone Encounter - Iris Santillan RN - 04/16/2021 3:52 PM CDT Last OV 02/06/21 Last RF 03/09/21 Disp: 60 Send to [facility] documented in this encounter Plan of Treatment Care Team Description Date Type Specialty Prisca Dewitt MD [address] [facility] [address] [facility] [place] [id number] 04/28/2021 Office Visit Endocrinology documented as of this encounter Visit Diagnoses Not on filedocumented in this encounter Care Teams Start Date End Date Cat And Dog Bather Relationship Specialty 12/12/14 Tricia Roberson MD PCP - General [address] [facility] [address] [place] [address] documented as of this encounter
--- OUTSIDE RECORDS SUMMARY | 2021-04-26 12:30 | XMS REPORT | Encounter Summary ---
Author Author [facility] Organization [facility] Address Unknown Phone Unavailable Care Team Providers Care Landing Signal Officer Name Role Phone Tricia Roberson MD PCP Reason for Visit * Reason Onset Date Comments Medication Prior 03/05/2021 Authorization Medication Refill 03/05/2021 Medication Refill 03/06/2021 Encounter Details Care Team Description Date Type Department Prisca Dewitt MD [address] [facility] [address] [place] [address] Medication Prior Authorization; Medicati on Refill; Medication Refill 03/05/2021 Refill [facility] [place] [address] [facility] [address] [place] [address] Social History Date Tobacco Use Types Packs/Day Years Used Current Every Day Smoker Cigarettes 0.5 20 Smokeless Tobacco: Never Used Comments Alcohol Use Standard Drinks/Week No 0 (1 standard drink = 0.6 o z pure alcohol) Sex Assigned at Date Recorded Not on file documented as of this encounter Miscellaneous Notes * Telephone Encounter - Michelle Martinez RN - 03/06/2021 12:22 PM CDT Rec'd fax from [facility] Community plan stating that [facility] already in effec t for Victoza through 12/02/2021. Spoke with [facility] and advised of above. They re-ran the script for 1 box and it was approved. * Telephone Encounter - Michelle Martinez RN - 03/05/2021 9:24 AM CDT PA request rec'd for [facility] medicaid form printed and filled out and given to provider for signature. documented in this encounter Plan of Treatment Care Team Description Date Type Specialty Prisca Dewitt MD [address] [facility] [address] [place] [address] 04/28/2021 Office Visit Endocrinology documented as of this encounter Visit Diagnoses Diagnosis Type 2 diabetes mellitus with complicat ion, with long-term current use of insulin (HCC) documented in this encounter Care Teams Start Date End Date Landing Signal Officer Relationship Specialty 12/12/14 Tricia Roberson MD PCP - General [address] [facility] [address] [place] [address] documented as of this encounter
[2021-04-26 12:31] VITALS: BP 185/82
[2021-04-26] MEDS ORDERED: LIDOCAINE 1% INJ 20 ML 20 ML VIAL INJ ONE ×2 (12:45)
[2021-04-26] MEDS ORDERED: cefTRIAXone 1,000 MG VIAL IM ONE (12:45)
[2021-04-26] MEDS ORDERED: morphine INJ 10 MG/ML 1ML (SYR OR VIAL) IM STA (12:47)
--- NOTE | 2021-04-26 12:53 | ED Integumentary General ---
General Chief Complaint: Skin/Wound Problems Stated Complaint: LEFT SHOULDER/ARM PAIN/POSS ABSCESS UNDER ARM Source: patient, old records History of Present Illness Date Seen by Provider: Apr 26, 2021 Time Seen by Provider: 12:27 Initial Comments 40-year-old female presenting with complaints of left shoulder pain. She states 3 to 4 days ago she noticed a golf ball sized painful area under her left armpit. This has continued to be painful and did have a small amount of blood and pus from it. Yesterday she started having shoulder pain on the same side especially with trying to raise her arm up. She denies any fall or injury to the shoulder. She has felt warm but has not taken her temperature. She has a history of MRSA as well as recurrent abscesses. Severity: severe Location: extremities (left axilla and shoulder) Possible Cause: no cause identified Associated Symptoms: No blisters, No change in skin texture, No edema; fever (subjective), flushing; No headache, No hives, No jaundice, No malaise, No nasal congestion, No numbness, No pallor, No paresthesia, No petechiae, No rash, No sore throat; swelling/mass/lumps (left axilla for 3-4 days); No tingling Allergies and Home Medications Allergies Coded Allergies: metformin (Verified Allergy, Unknown, nausea/vomiting, 09/30/18) sumatriptan (Verified Allergy, Unknown, syncope, 09/30/18) Patient Home Medication List Home Medication List Reviewed: Yes Dicyclomine HCl (Bentyl) 20 Mg/2 Ml Inj, 20 MG IM QID Prescribed by: CHAVEZ SHARIF on 02/04/21 1243 Famotidine (Pepcid) 20 Mg Tablet, 20 MG PO BID Prescribed by: CHAVEZ SHARIF on 02/04/21 1243 Hydrocodone/Acetaminophen (Hydrocodone-Acetamin 10-325 mg) 1 Each Tablet, 1 EACH PO Q4H PRN for PAIN-SEVERE (8-10) Prescribed by: DEBBIE DELUCA on 11/06/20 0811 Ibuprofen (Ibuprofen) 800 Mg Tablet, 800 MG PO Q8H PRN for PAIN/Inflammation Prescribed by: DEBBIE DELUCA on 04/26/21 1314 Sulfamethoxazole/Trimethoprim (Bactrim Ds Tablet) 1 Each Tablet, 1 EACH PO BID Prescribed by: DEBBIE DELUCA on 04/26/21 1314 Discontinued Medications Ondansetron (Ondansetron Odt) 4 Mg Tab.rapdis, 4 MG PO Q8H Prescribed by: BETZY CISNEROS on 08/17/19 1039 Oseltamivir Phosphate (Tamiflu) 75 Mg Cap, 75 MG PO BID Prescribed by: BETZY CISNEROS on 08/17/19 1039 Sulfamethoxazole/Trimethoprim (Bactrim 400-80 mg Tablet) 1 Each Tablet, 1 EACH PO BID Prescribed by: JUSTINE SANCHES on 01/17/19 1857 Sulfamethoxazole/Trimethoprim (Bactrim Ds Tablet) 1 Each Tablet, 1 EACH PO BID Prescribed by: JONATHAN HUA on 02/24/19 1729 Review of Systems Review of Systems Constitutional: see HPI; No chills; fever (subjective) EENTM: no symptoms reported Respiratory: cough (occasional) Cardiovascular: no symptoms reported Gastrointestinal: no symptoms reported Genitourinary: no symptoms reported Musculoskeletal: see HPI Skin: see HPI Psychiatric/Neurological: No Symptoms Reported Past Akllaoo-Cnhzea-Zktzsw Hx Seasonal Allergies Seasonal Allergies: Yes Past Medical History Surgery/Hospitalization HX: Hx of MRSA, Recurrent Abscesses Surgeries: Yes (Lap band removed.) Section, Eye Surgery, Gallbladder, Hysterectomy, Oophorectomy, Orthopedic, Tonsillectomy Respiratory: No Cardiac: Yes Hypertension Neurological: No PVC MONITOR History: Hysterectomy Genitourinary: No Gastrointestinal: Yes (Gastroparesis) Musculoskeletal: No Arthritis Endocrine: Yes Diabetes, Insulin dep HEENT: No Cancer: No Psychosocial: Yes Anxiety, Bipolar, Depression Integumentary: No Blood Disorders: No Physical Exam Vital Signs Capillary Refill : General Appearance: mild distress, obese Neck: non-tender, full range of motion, supple, normal inspection Cardiovascular: normal peripheral pulses Extremities: normal capillary refill, other (decreased ROM for left shoulder due to pain with abduction) Neurologic/Psychiatric: alert, oriented x 3 Skin: other (erythema and induration to left axilla that is tender to palpation. no drainage or definite fluctuance) Procedures/Interventions I&D : Site: Left Axilla Blade Size: 11 I & D Procedure: sterile drapes applied, sterile dressing applied Progress After obtaining verbal consent from the patient the left axilla was prepped using ChloraPrep. Then a 1 mL amount of 1% plain lidocaine was infiltrated in the area. The area that was most indurated and had appeared to have some drainage on the small Band-Aid when she arrived is the location where I made a small incision with the 11 blade scalpel. A small amount of purulent drainage with bloody drainage was obtained. A wound culture was sent. Patient tolerated procedure well without any immediate complication. The wound was dressed with a sterile Band-Aid. Counseled on management and follow-up. Progress/Results/Core Measures Results/Orders My Orders Orders - DEBBIE DELUCA MD Lidocaine 1% Inj 20 Ml (Xylocaine 1% Inj (04/26/21 12:45) Ceftriaxone (Rocephin) (04/26/21 12:45) Lidocaine 1% Inj 20 Ml (Xylocaine 1% Inj (04/26/21 12:45) Wound Culture (04/26/21 12:44) Morphine Injection (Morphine Injection (04/26/21 12:47) Medications Given in ED Current Medications Medications Dose Ordered Sig/Martin Route Start Time Stop Time Status Last Admin Dose Admin Ceftriaxone Sodium 1,000 mg ONCE ONCE IM 04/26/21 12:45 04/26/21 12:47 DC 04/26/21 13:02 1,000 MG Lidocaine HCl 2.1 ml ONCE ONCE INJ 04/26/21 12:45 04/26/21 12:47 DC 04/26/21 13:03 2.1 ML Lidocaine HCl 20 ml ONCE ONCE INJ 04/26/21 12:45 04/26/21 12:47 DC 04/26/21 13:02 20 ML Progress Progress Note : Progress Note verbally consented pt for I&D of tender induration left axilla. Will give Rocephin 1 gm IM and plan on treating with bactrim ds as she has had previously. send culture of any drainage from the area. since hydrocodone that she takes chronically was not helping her pain will give a single Morphine shot. She states she has a daughter to drive her home. Departure Impression Primary Impression: Abscess of left axilla Additional Impression: Left shoulder pain Qualified Codes: M25.512 - Pain in left shoulder Disposition: 01 HOME, SELF-CARE Condition: Stable Departure-Patient Inst. Decision time for Depature: 13:12 Referrals: AMINA MAR MD (PCP/Family) Primary Care Physician Patient Instructions: Boil, Adult ED, Shoulder Pain ED, Abscess Incision and Drainage ED Add. Discharge Instructions: Take the full course of antibiotics to treat for infection under your left arm. Use warm pack to the armpit to help increase blood flow to get more antibiotic to the area as well as help the infection drain if it is going to drain more from the small incision made today. Use Ibuprofen to help with pain and inflammation. May continue with Hydrocodone you take for pain already. Check back with clinic for continued problems or if not improving in 2-3 days. A wound culture was sent from the drainage obtained today. This will take several days to get results but if a different antibiotic is needed you will get a call so we can switch your medicines. All discharge instructions reviewed with patient and/or family. Voiced understanding. Scripts Ibuprofen (Ibuprofen) 800 Mg Tablet 800 MG PO Q8H PRN for PAIN/Inflammation for 10 Days, #30 TAB 0 Refills Prov: DEBBIE DELUCA MD 04/26/21 Sulfamethoxazole/Trimethoprim (Bactrim Ds Tablet) 1 Each Tablet 1 EACH PO BID for abscess for 10 Days, #20 TAB 0 Refills Prov: DEBBIE DELUCA MD 04/26/21 DEBBIE DELUCA MD Apr 26, 2021 12:53
[2021-04-26] MEDS ORDERED: SULF1TAB38 PO (13:14)
[2021-04-26] MEDS ORDERED: IBUP-1780 PO (13:14)
== END 2021-04-26 13:24 | disposition home or self-care (01) ==
LOC: EDUNIT# 12:25 → ER FS 12:27
DX: L02.412 Cutaneous abscess of left axilla (principal); M25.512 Pain in left shoulder; I10 Essential (primary) hypertension; E11.9 Type 2 diabetes mellitus without complications; Z86.14 Personal history of Methicillin resistant Staphylococcus aureus infection
CPT/HCPCS: 10060; 87070; 87077; 87186; 87205

== ENCOUNTER 2021-05-20 12:46 | Emergency (ER) | payer MEDICAID ==
[~2021-05-20] VITALS: Ht 175 cm; Wt 138.0 kg
[~2021-05-20 12:46] MED LIST changes: +IBUP-1780 PO
--- OUTSIDE RECORDS SUMMARY | 2021-05-20 12:52 | XMS REPORT | Clinical Summary ---
Author Author [facility] Organization [facility] Address Unknown Phone Unavailable Care Team Providers Care Silviculturist Name Role Phone Tricia Roberson MD PCP [...] WITH MEALTIME COVERAGE. 4 TOTAL DAILY Active buPROPion (WELLBUTRIN SR) Take 1 tablet [...] mellitus with hypoglycemia, unspecified hypoglycemia coma status (HCC) Active semaglutide (OZEMPIC) Inject 0.25 1 each 0 02/25 0.25 mg or 0.5 mg(2 mg under the 1 mg/1.5 mL) skin every 7 syringeIndications: (seven) days Uncontrolled type 2 for 14 days, diabetes mellitus with THEN 0.5 mg hypoglycemia, unspecified every 7 hypoglycemia coma status (seven) days. ([facility]) Active ONETOUCH VERIO TEST USE 1 STRIP 100 strip 1 STRIPS test TO CHECK 1 stripsIndications: Type 2 BLOOD SUGARS diabetes mellitus with THREE TIMES complication, with DAILY long-term current use of insulin ([facility]) Active trazodone (DESYREL) 100 TAKE 3 30 [...] pain. Max Daily Dose: 2 tablets Active busPIRone (BUSPAR) 10 MG TAKE 1 TABLET 270 tablet 0 tablet BY MOUTH 1 THREE TIMES DAILY FOR ANXIETY Active gabapentin (NEURONTIN) TAKE 1 90 capsule 1 400 MG capsule CAPSULE(400 1 MG) BY MOUTH THREE TIMES DAILY 05/18/2021 Discontinued gabapentin (NEURONTIN) TAKE 1 90 capsule 1 400 MG capsule CAPSULE(400 1 MG) BY MOUTH THREE TIMES DAILY 04/29/2021 Discontinued busPIRone (BUSPAR) 10 MG TAKE 1 TABLET 270 tablet 1 tablet BY MOUTH 1 THREE TIMES DAILY FOR ANXIETY Active Problems Problem Noted Date Monocytosis 01/08/2021 [...] Date Type Specialty Tricia Roberson MD Medication Refill 05/18/2021 Refill Primary Care Shanda Owens 04/29/2021 Telephone Tricia Roberson MD Medication Refill 04/29/2021 Refill Primary Care Pepe Cullen MD 04/28/2021 Emergency Emergency Medicine Iris Santillan, machine shop supervisor Refill 04/16/2021 Refill Primary Care Tricia Roberson MD Medication Refill 04/13/2021 Refill Primary Care Tricia Roberson MD Medication Refill 04/07/2021 Refill Primary Care Jeremías Robin MD Medication Refill 04/07/2021 Refill Endocrinology Gricelda Green LPN Medication Prior Authorization (Ozempic) 03/11/2021 Telephone Endocrinology Michelle Martinez, machine shop supervisor Prior Authorization 03/11/2021 Telephone Endocrinology Tricia Roberson MD Rheumatoid arthritis involving multiple sites, unspecified whether rheumatoid factor present (HCC) (Primary Dx) 03/11/2021 Orders Only Primary Care Tricia Roberson MD Medication Refill 03/09/2021 Refill Primary Care Prisca Dewitt MD Medication Prior Authorization; Medicati on Refill; Medication Refill 03/05/2021 Refill Endocrinology Prisca Dewitt MD Medication Refill 03/04/2021 Refill Endocrinology from Last 3 Months Immunizations Name Administration Dates Next Due Hep A / Hep B 01/21/2017, 12/21/2016 Influenza QIV (IM) 03/24/2018, 04/15/2017 Influenza Whole 05/16/2012 Influenza, seasonal, 05/16/2012 injectable, preservatie free (IIV3). 15 = Influenza TIV Moderna Sars-cov-2 Full 10/16/2020, 09/18/2020 Dose Pneumococcal 04/15/2017 Polysaccharide 23-Valent Tdap 09/29/2016, 11/04/2012, [...] Signs Reading Time Taken Comments Vital Sign 187/82 04/28/2021 3:21 PM CDT Blood Pressure 80 04/28/2021 3:21 PM CDT Pulse 36.6 C (97.9 F) 04/28/2021 3:21 PM CDT Temperature 18 04/28/2021 3:21 PM CDT Respiratory Rate 97% 04/28/2021 3:21 PM CDT Oxygen Saturation - - Inhaled Oxygen Concentration 136.1 kg (300 lb) 04/28/2021 3:21 PM CDT Weight 175.3 cm (5' 9") 04/28/2021 3:21 PM CDT Height 44.3 04/28/2021 3:21 PM CDT Body Mass Index Plan of Treatment Care Team Description Date Type Specialty Tricia Roberson MD [address] [place], [place] [id number] 06/30/2021 Office Visit Primary Care Prisca Dewitt MD [address] [place] [address] 07/07/2021 Office Visit Endocrinology Health Maintenance Due Date [...] (2 of 4 - PCV13) COVID-19 Vaccine (4 - 04/17/2021 10/16/2020, Booster) 09/18/2020, 08/27/2020 Lipid Screening 08/07/2021 08/07/2020, 08/07/2020, 08/27/2019, Additional history exists Diabetes Mellitus 08/09/2021 02/06/2021, Hemoglobin A1C 10/28/2020, 06/26/2020, Additional history exists Tobacco Cessation 10/28/2021 10/28/2020, Counseling # 10/28/2020, 08/24/2019, Additional history exists Td/Tdap# Discontinued 09/29/2016, 11/04/2012, Influenza Vaccine Discontinued 03/24/2018, 04/15/2017, 05/16/2012, Additional history exists Results Not on filefrom Last 3 Months Insurance Type Payer Benefit Subscriber ID Effective Phone Address Plan / Dates Group MEDICAID [facility] [id number] 2019- [address] COMMUNITY Present [address] [place] [address] Advance Directives For more information, please contact: [phone] Patient Automobile Upholsterer Explanation Type Date Recorded Power of Machine Operator Farmworker Advance Directives 07/05/2016 7:53 AM and [facility] 10/08/2013 10:47 PM Directive Care Teams Start Date End Date Silviculturist Relationship Specialty 12/12/14 Tricia Roberson MD PCP - General [address] [facility] [address] [place] [address]
--- OUTSIDE RECORDS SUMMARY | 2021-05-20 12:52 | XMS REPORT | Encounter Summary ---
Author Author [facility] Organization [facility] Address Unknown Phone Unavailable Care Team Providers Care Landscaping Specialist Name Role Phone Tricia Roberson MD PCP Reason for Visit * Reason Comments Abscess L armpit abscess. Went to [facility] in [place] Tuesday. It has since gotten bigger and having more pain. Encounter Details Care Team Description Date Type Department Pepe Cullen MD [address] [place] [id number] 04/28/2021 Emergency [facility] [address] [place] [address] Social History Date Tobacco Use Types Packs/Day [...] 04/28/2021 3:21 PM CDT Body Mass Index documented in this encounter Medications at Time of Discharge Start Date End Date Medication Sig Dispensed Refills 04/20/2020 codeine-guaifenesin Take 5 mL by 120 mL 0 (GUAIFENESIN AC) 10-100 mouth 3 mg/5 mL liquid (three) times a day as needed for cough. Max Daily Dose: 15 mL dicyclomine (BENTYL) 10 Take 10 mg by 0 MG capsule mouth 4 (four) times a day before meals and nightly. 04/21/2020 erythromycin base TAKE 1 270 tablet 1 (E-MYCIN) 250 MG tablet TABLET(250 MG) BY MOUTH THREE TIMES DAILY 04/19/2021 HYDROcodone-acetaminophen Take 1 tablet 60 tablet 0 (NORCO) 5-325 mg per by mouth tablet every 12 (twelve) hours as needed for pain. Max Daily Dose: 2 tablets 02/06/2021 08/05/2021 hydrOXYchloroQUINE Take 1 tablet 90 tablet 1 (PLAQUENIL) 200 mg (200 mg tabletIndications: total) by Rheumatoid arthritis mouth daily. involving multiple sites, unspecified whether rheumatoid factor present ([facility]) 12/31/2019 hydrOXYzine (ATARAX) 25 TAKE 1 270 tablet 0 MG tabletIndications: TABLET(25 MG) Itching BY MOUTH EVERY 8 HOURS NEEDED FOR ITCHING 04/13/2021 insulin aspart U-100 ADMINISTER 30 30 mL 3 (NOVOLOG) 100 unit/mL (3 UNITS UNDER mL) pen THE SKIN THREE TIMES DAILY WITH MEALS 02/13/2016 lancing device with Use three 100 each 11 lancets Kit daily 11/10/2020 lisinopriL TAKE 1 90 tablet 1 (PRINIVIL,ZESTRIL) 20 MG TABLET(20 MG) tablet BY MOUTH DAILY 02/06/2021 metoclopramide (REGLAN) 5 Take 1 tablet 120 tablet 1 MG tablet (5 mg total) by mouth 4 (four) times a day. 07/22/2020 montelukast (SINGULAIR) TAKE 1 90 tablet 0 10 mg tablet TABLET(10 MG) BY MOUTH EVERY NIGHT 02/13/2016 ONETOUCH ULTRASOFT USE THREE 11 LANCETS lancets DAILY 04/07/2021 ONETOUCH VERIO TEST USE 1 STRIP 100 strip 1 STRIPS test TO CHECK stripsIndications: Type 2 BLOOD SUGARS diabetes mellitus with THREE TIMES complication, with DAILY long-term current use of insulin ([facility]) 03/10/2021 OZEMPIC 0.25 mg or 0.5 Inject 0.5 mg 3 each 3 mg(2 mg/1.5 mL) under the syringeIndications: skin every 7 Uncontrolled type 2 (seven) days. diabetes mellitus with hypoglycemia, unspecified hypoglycemia coma status ([facility]) 09/29/2020 pen needle, diabetic (BD USE 1 TIME 400 each 1 ULTRA-FINE SHORT) 31 DAILY WITH gauge x 5/16" pen needles LANTUS. WILL NEED UP TO 3 DAILY WITH MEALTIME COVERAGE. 4 TOTAL DAILY 11/10/2020 sertraline (ZOLOFT) 100 TAKE 2 90 tablet 1 mg tablet TABLETS(200 MG) BY MOUTH DAILY 12/22/2020 simvastatin (ZOCOR) 20 MG TAKE 1 TABLET 90 tablet 1 tablet BY MOUTH EVERY NIGHT 02/06/2021 08/05/2021 tramadoL (ULTRAM) 50 mg Take 2 180 tablet 5 tablet tablets (100 mg total) by mouth every 8 (eight) hours as needed for pain. Max Daily Dose: 300 mg 04/07/2021 trazodone (DESYREL) 100 TAKE 3 30 tablet 0 MG tablet TABLETS(300 MG) BY MOUTH EVERY NIGHT 03/04/2021 TRESIBA FLEXTOUCH U-100 INJECT 65-90 45 mL 3 100 unit/mL (3 mL) UNITS UNDER penIndications: Type 2 THE SKIN diabetes mellitus with TWICE DAILY. complication, with TOTAL OF 182 long-term current use of UNITS PER DAY insulin ([facility]) 10/13/2020 04/29/2021 busPIRone (BUSPAR) 10 MG TAKE 1 TABLET 270 tablet 1 tablet BY MOUTH THREE TIMES DAILY FOR ANXIETY 10/07/2020 05/18/2021 gabapentin (NEURONTIN) TAKE 1 90 capsule 1 400 MG capsule CAPSULE(400 MG) BY MOUTH THREE TIMES DAILY documented as of this encounter Plan of Treatment Care Team Description Date Type Specialty Tricia Roberson MD [address] [facility] [address] [place] [address] 06/30/2021 Office Visit Primary Care Prisca Dewitt MD [address] [facility] [address] [place], [place] [phone] 07/07/2021 Office Visit Endocrinology documented as of this encounter Visit Diagnoses Not on filedocumented in this encounter Care Teams Start Date End Date Landscaping Specialist Relationship Specialty 12/12/14 Tricia Roberson MD PCP - General [address] [facility] [address] [place] [address] documented as of this encounter
--- OUTSIDE RECORDS SUMMARY | 2021-05-20 12:52 | XMS REPORT | Encounter Summary ---
Author Author [facility] Organization [facility] Address Unknown Phone Unavailable Care Team Providers Care Cloth Shearing Supervisor Name Role Phone Tricia Roberson MD PCP Encounter Details Care Team Description Date Type Department [facility] [address] [place] [id number] Social History Date Tobacco Use Types Packs/Day Years Used Current Every Day Smoker Cigarettes 0.5 20 Smokeless Tobacco: Never Used Comments Alcohol Use Standard Drinks/Week No 0 (1 standard drink = 0.6 o z pure alcohol) Sex Assigned at Date Recorded Not on file documented as of this encounter Miscellaneous Notes * Telephone Encounter - Shanda Owens - 04/29/2021 10:58 AM CDT SLE ED lwbs survey/pt states she went home--did not seek additional medical assi stance//encouraged pt to follow up with PCP/if needed return to ED documented in this encounter Plan of Treatment Care Team Description Date Type Specialty Tricia Roberson MD [address] [facility] [address] [place] [address] 06/30/2021 Office Visit Primary Care Prisca Dewitt MD [address] [facility] [address] [place] [address] 07/07/2021 Office Visit Endocrinology documented as of this encounter Visit Diagnoses Not on filedocumented in this encounter Care Teams Start Date End Date Cloth Shearing Supervisor Relationship Specialty 12/12/14 Tricia Roberson MD PCP - General [address] [facility] [address] [place] [address] documented as of this encounter
--- OUTSIDE RECORDS SUMMARY | 2021-05-20 12:52 | XMS REPORT | Encounter Summary ---
Author Author [facility] Organization [facility] Address Unknown Phone Unavailable Care Team Providers Care Director Metabolism Name Role Phone Tricia Roberson MD PCP Reason for Visit * Reason Comments Medication Refill Encounter Details Care Team Description Date Type Department Tricia Roberson MD [address] [facility] [address] [place] [address] Medication Refill 05/18/2021 [facility] [address] [facility] [address] [place] [address] Social History Date Tobacco Use Types Packs/Day Years Used Current Every Day Smoker Cigarettes 0.5 20 Smokeless Tobacco: Never Used Comments Alcohol Use Standard Drinks/Week No 0 (1 standard drink = 0.6 o z pure alcohol) Sex Assigned at Date Recorded Not on file documented as of this encounter Miscellaneous Notes * Telephone Encounter - Courtney Bates LPN - 05/18/2021 11:14 AM MICROSTRATEGY ARCHITECT DEVELOPER gabapentin (NEURONTIN) 400 MG capsule 90 capsule 1 10/07/2020 Sig: TAKE 1 CAPSULE(400 MG) BY MOUTH THREE TIMES DAILY Sent to pharmacy as: gabapentin 400 mg capsule (NEURONTIN) E-Prescribing Status: Receipt confirmed by pharmacy (10/07/2020 2:02 PM CDT) SARAHI 02.06.2021 OSTRATEGY ARCHITECT DEVELOPER documented in this encounter Plan of Treatment Care Team Description Date Type Specialty Tricia Roberson MD [address] [facility] [address] [place] [address] 06/30/2021 Office Visit Primary Care Prisca Dewitt MD [address] [facility] [address] [place] [address] 07/07/2021 Office Visit Endocrinology documented as of this encounter Visit Diagnoses Not on filedocumented in this encounter Care Teams Start Date End Date Director Metabolism Relationship Specialty 12/12/14 Tricia Roberson MD PCP - General [address] [facility] [address] [place] [address] documented as of this encounter
--- OUTSIDE RECORDS SUMMARY | 2021-05-20 12:52 | XMS REPORT | Encounter Summary ---
Author Author [facility] Organization [facility] Address Unknown Phone Unavailable Care Team Providers Care Furniture Crater Name Role Phone Tricia Roberson MD PCP Reason for Visit * Reason Comments Medication Refill Encounter Details Care Team Description Date Type Department Tricia Roberson MD [address] [place] [address] Medication Refill 04/07/2021 Refill [facility] [address] [employer] [place] [address] Social History Date Tobacco Use Types Packs/Day Years Used Current Every Day Smoker Cigarettes 0.5 20 Smokeless Tobacco: Never Used Comments Alcohol Use Standard Drinks/Week No 0 (1 standard drink = 0.6 o z pure alcohol) Sex Assigned at Date Recorded Not on file documented as of this encounter Miscellaneous Notes * Telephone Encounter - Courtney Bates LPN - 04/07/2021 11:07 AM CDT Disp Refills Start End trazodone (DESYREL) 100 MG tablet 90 tablet 1 02/09/2021 Sig: TAKE 3 TABLETS(300 MG) BY MOUTH EVERY NIGHT SARAHI 08.. documented in this encounter Plan of Treatment Care Team Description Date Type Specialty Tricia Roberson MD [address] [place] [address] 06/30/2021 Office Visit Primary Care Prisca Dewitt MD [address] [facility] [address] [place] [address] 07/07/2021 Office Visit Endocrinology documented as of this encounter Visit Diagnoses Not on filedocumented in this encounter Care Teams Start Date End Date Furniture Crater Relationship Specialty 12/12/14 Tricia Roberson MD PCP - General [address] [facility] [address] [place] [address] documented as of this encounter
--- OUTSIDE RECORDS SUMMARY | 2021-05-20 12:52 | XMS REPORT | Encounter Summary ---
Author Author [facility] Organization [facility] Address Unknown Phone Unavailable Care Team Providers Care Blueprint Developer Name Role Phone Tricia Roberson MD PCP Reason for Visit * Reason Comments Medication Refill Encounter Details Care Team Description Date Type Department Tricia Roberson MD [address] [facility] [address] [place] [address] Medication Refill 04/29/2021 [facility] [address] [facility] [address] [place] [address] Social History Date Tobacco Use Types Packs/Day Years Used Current Every Day Smoker Cigarettes 0.5 20 Smokeless Tobacco: Never Used Comments Alcohol Use Standard Drinks/Week No 0 (1 standard drink = 0.6 o z pure alcohol) Sex Assigned at Date Recorded Not on file documented as of this encounter Miscellaneous Notes * Telephone Encounter - Courtney Bates LPN - 04/29/2021 11:12 AM CDT Disp Refills Start End busPIRone (BUSPAR) 10 MG tablet 270 tablet 1 10/13/2020 Sig: TAKE 1 TABLET BY MOUTH THREE TIMES DAILY FOR ANXIETY Sent to pharmacy as: busPIRone 10 mg tablet (BUSPAR) E-Prescribing Status: Receipt confirmed by pharmacy (10/13/2020 10:59 AM CDT) SARAHI 02.06.2021 NOV none documented in this encounter Plan of Treatment Care Team Description Date Type Specialty Tricia Roberson MD [email or web address] [place], [place] [id number] 06/30/2021 Office Visit Primary Care Prisca Dewitt MD [address] [place] [address] 07/07/2021 Office Visit Endocrinology documented as of this encounter Visit Diagnoses Not on filedocumented in this encounter Care Teams Start Date End Date Blueprint Developer Relationship Specialty 12/12/14 Tricia Roberson MD PCP - General [address] [place] [address] documented as of this encounter
[2021-05-20] MEDS ORDERED: CLIN-144 PO (13:10)
--- NOTE | 2021-05-20 13:10 | ED Integumentary General ---
General Chief Complaint: Skin/Wound Problems Stated Complaint: LT AXIAL CYST Nursing Triage Note: REDDENED SWOLLEN AREA IN THE LEFT AXILLA. THERE IS A WHITE PIMPLE HEAD IN THE CENTER. Source: patient Exam Limitations: no limitations History of Present Illness Date Seen by Provider: May 20, 2021 Time Seen by Provider: 12:50 Initial Comments 41-year-old female with past medical history of diabetes and recurrent skin infections coming in due to concerns for an infection in her left axilla. Had a similar one a couple weeks ago that was drained and she took antibiotics. It did improve. Came back about 4 days later with some redness around the skin and more pain. Pain is moderate, constant, throbbing. Better when she is not moving or touching it. Denies any fever, chest pain, shortness of breath, abdominal pain, nausea, vomiting, diarrhea, or any other concerns. She says she does get these frequently in her axilla bilaterally as well as her groin. She is never been diagnosed with hidradenitis suppurativa as far she knows. Allergies and Home Medications Allergies Coded Allergies: metformin (Verified Allergy, Unknown, nausea/vomiting, 09/30/18) sumatriptan (Verified Allergy, Unknown, syncope, 09/30/18) Patient Home Medication List Home Medication List Reviewed: Yes Clindamycin HCl (Clindamycin HCl) 300 Mg Capsule, 300 MG PO QID Prescribed by: FLOYD GOMEZ on 05/20/21 1310 Dicyclomine HCl (Bentyl) 20 Mg/2 Ml Inj, 20 MG IM QID Prescribed by: CHAVEZ SHARIF on 02/04/21 1243 Famotidine (Pepcid) 20 Mg Tablet, 20 MG PO BID Prescribed by: CHAVEZ SHARIF on 02/04/21 1243 Hydrocodone/Acetaminophen (Hydrocodone-Acetamin 10-325 mg) 1 Each Tablet, 1 EACH PO Q4H PRN for PAIN-SEVERE (8-10) Prescribed by: DEBBIE DELUCA on 11/06/20 0811 Ibuprofen (Ibuprofen) 800 Mg Tablet, 800 MG PO Q8H PRN for PAIN/Inflammation Prescribed by: DEBBIE DELUCA on 04/26/21 1314 Sulfamethoxazole/Trimethoprim (Bactrim Ds Tablet) 1 Each Tablet, 1 EACH PO BID Prescribed by: DEBBIE DELUCA on 04/26/21 1314 Review of Systems Review of Systems Constitutional: No chills, No fever EENTM: No blurred vision Respiratory: No cough Cardiovascular: No chest pain Gastrointestinal: No abdominal pain Genitourinary: no symptoms reported Musculoskeletal: no symptoms reported Skin: rash Psychiatric/Neurological: No Symptoms Reported Endocrine: No Symptoms Reported Hematologic/Lymphatic: No Symptoms Reported All Other Systems Reviewed Negative Unless Noted: Yes Past Ljhwmga-Jyntpt-Roqhmw Hx Patient Social History Tobacco Use?: No Substance use?: No Alcohol Use?: No Pt feels they are or have been: No Immunizations Up To Date First/Initial COVID19 Vaccinat: November 2020 Second COVID19 Vaccination Sha: December 2020 Seasonal Allergies Seasonal Allergies: Yes Past Medical History Surgery/Hospitalization HX: Hx of MRSA, Recurrent Abscesses Surgeries: Yes (Lap band removed.) Section, Eye Surgery, Gallbladder, Hysterectomy, Oophorectomy, Orthopedic, Tonsillectomy Respiratory: No Cardiac: Yes Hypertension Neurological: No DRIVER/MERCHANDISER History: Hysterectomy Genitourinary: No Gastrointestinal: Yes (Gastroparesis) Musculoskeletal: No Arthritis Endocrine: Yes Diabetes, Insulin dep HEENT: No Cancer: No Psychosocial: Yes Anxiety, Bipolar, Depression Integumentary: No Blood Disorders: No Physical Exam Vital Signs Vital Signs - First Documented 05/20/21 12:53 Temp 36.2 Pulse 79 Resp 20 B/P (MAP) 161/71 (101) Pulse Ox 97 O2 Delivery Room Air Capillary Refill : Less Than 3 Seconds General Appearance: WD/WN, no apparent distress HEENT: PERRL/EOMI, normal ENT inspection, pharynx normal Neck: non-tender, full range of motion, supple, normal inspection Cardiovascular: regular rate, rhythm, no edema, no murmur Respiratory: chest non-tender, lungs clear, normal breath sounds, no respiratory distress, no accessory muscle use Gastrointestinal: normal bowel sounds, non tender, soft; No guarding, No rebound Back: normal inspection Extremities: normal range of motion, non-tender, normal inspection, no pedal edema, no calf tenderness, normal capillary refill Neurologic/Psychiatric: no motor/sensory deficits, alert Skin: normal color, warm/dry, rash (Focal area of fluctuance in the left axilla with a chan to it, overlying cellulitis that is minimal) Lymphatic: no adenopathy Procedures/Interventions I&D : Site: L axila Blade Size: 11 I & D Procedure: sterile dressing applied Progress Wound was cleaned and anesthetized with lidocaine 2% with epi. Single stab incision with moderate amount of purulent drainage. Tolerated the procedure well. Progress/Results/Core Measures Results/Orders My Orders Orders - FLOYD GOMEZ MD Lidocaine/Epi 2% 1:100,000 (Xylocaine/Ep (05/20/21 13:15) Vital Signs/I&O 05/20/21 12:53 Temp 36.2 Pulse 79 Resp 20 B/P (MAP) 161/71 (101) Pulse Ox 97 O2 Delivery Room Air Blood Pressure Mean: 101 Progress Progress Note : Progress Note 41-year-old female with above history coming in due to concerns for an abscess in her left axilla. ABCs were intact and vitals were stable on presentation. She is afebrile specifically, and does not have any systemic signs of infection. She does have a localized abscess with some minimal cellulitis over it. This was cleaned, anesthetized, and opened with a single superficial stab incision with a small amount of purulent drainage. She tolerated the procedure well. She will be prescribed antibiotics for the mild cellulitis overlying it. I am concerned for hidradenitis suppurativa, and I recommend she follow-up with a candy dipper hand. I believe she is stable for discharge. She was sent home with strict return precautions Departure Impression Primary Impression: Abscess Additional Impressions: Cellulitis Qualified Codes: L03.112 - Cellulitis of left axilla Hidradenitis suppurativa Disposition: HOME, SELF-CARE Condition: Stable Departure-Patient Inst. Decision time for Depature: 13:20 Referrals: AMINA MAR MD (PCP/Family) Primary Care Physician Patient Instructions: Hidradenitis Suppurativa Add. Discharge Instructions: You were seen in the emergency department for an infection in your left armpit. This looks to me to be hidradenitis suppurativa. After you finish your oral antibiotics I want you to start applying a very small amount of the clindamycin gel to your armpits and groin (not on your labia/vagina) to help prevent future infections. Please follow-up with a candy dipper hand as they can help provide treatments to prevent these in the future. Scripts Clindamycin/Niacinamide (Clindamycin 1%-Niacinamide 4%) 30 Gm Gel..gram. 30 GM TP DAILY for 30 Days, #1 TUB 2 Refills Apply a small amount to axila and groin daily to prevent infections Prov: FLOYD GOMEZ MD 05/20/21 Clindamycin HCl (Clindamycin HCl) 300 Mg Capsule 300 MG PO QID for 10 Days, #40 CAP Prov: FLOYD GOMEZ MD 05/20/21 FLOYD GOMEZ MD May 20, 2021 13:10
[2021-05-20] MEDS ORDERED: LIDOCAINE/EPI 2% 1:100,00 (XYLOCAINE) 20 ML VIAL INJ ONE (13:15)
[2021-05-20 13:20] VITALS: BP 161/71
[2021-05-20] MEDS ORDERED: CLIN30GE TP (13:20)
== END 2021-05-20 13:23 | disposition home or self-care (01) ==
LOC: EDUNIT# 12:46 → ER FS 12:47
DX: L02.412 Cutaneous abscess of left axilla (principal); L03.112 Cellulitis of left axilla; L73.2 Hidradenitis suppurativa; I10 Essential (primary) hypertension; E11.9 Type 2 diabetes mellitus without complications; Z86.14 Personal history of Methicillin resistant Staphylococcus aureus infection
CPT/HCPCS: 99282

== ENCOUNTER 2021-06-14 11:09 | Emergency (ER) | payer MEDICAID ==
[~2021-06-14] VITALS: Ht 175 cm; Wt 133.0 kg
[~2021-06-14 11:09] MED LIST changes: +CLIN-144 PO; +CLIN30GE TP
--- OUTSIDE RECORDS SUMMARY | 2021-06-14 11:14 | XMS REPORT | Clinical Summary ---
Author Author [facility] Organization [facility] Address Unknown Phone Unavailable Care Team Providers Care Pattern Gater Name Role Phone Tricia Roberson MD PCP [...] MG) 1 tablet BY MOUTH DAILY Active simvastatin (ZOCOR) 20 [...] every 7 hypoglycemia coma status (seven) days. ([facility]) Active ONETOUCH VERIO TEST USE 1 STRIP 100 strip 1 STRIPS test TO CHECK 1 stripsIndications: Type 2 BLOOD SUGARS diabetes mellitus with THREE TIMES complication, with DAILY long-term current use of insulin ([facility]) Active trazodone (DESYREL) 100 TAKE 3 [...] MG) BY MOUTH THREE TIMES DAILY Active sertraline (ZOLOFT) 100 TAKE 2 180 tablet 0 mg tablet TABLETS(200 1 MG) BY MOUTH DAILY 05/18/2021 Discontinued gabapentin (NEURONTIN) TAKE 1 90 capsule 1 400 MG capsule CAPSULE(400 1 MG) BY MOUTH THREE TIMES DAILY 06/04/2021 Discontinued sertraline (ZOLOFT) 100 TAKE 2 90 tablet 1 202 mg tablet TABLETS(200 1 MG) BY MOUTH DAILY Active Problems Problem Noted Date Monocytosis 01/08/2021 [...] Type Specialty Tricia Roberson MD Medication Refill 06/04/2021 Refill Primary Care Tricia Roberson MD Medication Refill 05/18/2021 Refill Primary Care Shanda Owens 04/29/2021 Telephone Tricia Roberson MD Medication Refill 04/29/2021 Refill Primary Care Pepe Cullen MD 04/28/2021 Emergency Emergency Medicine Iris Santillan, charge nurse Refill 04/16/2021 Refill Primary Care Tricia Roberson MD Medication Refill 04/13/2021 Refill Primary Care Tricia Roberson MD Medication Refill 04/07/2021 Refill Primary Care Jeremías Robin MD Medication Refill 04/07/2021 Refill Endocrinology from Last 3 Months Immunizations [...] Type Specialty Tricia Roberson MD [address] [facility] [address] [place] [phone] 06/30/2021 Office Visit Primary Care Sigrid Lozano PA-C [facility] [address] [address] 07/15/2021 Office Visit Endocrinology Health Maintenance Due Date [...] Plan / Dates Group MEDICAID MANAGED CARE [facility] [id number] 2019- [address] Present [address] [place] [address] Advance Directives For more information, please contact: [phone] Patient Teacher'S Aide Explanation Type Date Recorded Power of Net Web Application Developer Advance Directives 07/05/2016 7:53 AM and [facility] [place] 10/08/2013 10:47 PM Directive Care Teams Start Date End Date Pattern Gater Relationship Specialty 12/12/14 Tricia Roberson MD PCP - General [address] [facility] [address] [place] [address]
--- OUTSIDE RECORDS SUMMARY | 2021-06-14 11:14 | XMS REPORT | Encounter Summary ---
Author Author [facility] Organization [facility] Address Unknown Phone Unavailable Care Team Providers Care Production Expert Name Role Phone Tricia Roberson MD PCP Reason for Visit * Reason Comments Abscess L armpit abscess. Went to [facility] in [place] Tuesday. It has since gotten bigger and having more pain. Encounter Details Care Team Description Date Type Department Pepe Clulen MD [address] [place] [address] [phone] 04/28/2021 Emergency [facility] [address] [place] [address] Social History Date Tobacco Use Types Packs/Day [...] multiple sites, unspecified whether rheumatoid factor present ([facility]) 12/31/2019 hydrOXYzine (ATARAX) 25 TAKE 1 270 [...] long-term current use of insulin ([facility]) 03/10/2021 OZEMPIC 0.25 mg or 0.5 Inject 0.5 mg 3 each 3 mg(2 mg/1.5 mL) under the syringeIndications: skin every 7 Uncontrolled type 2 (seven) days. diabetes mellitus with hypoglycemia, unspecified hypoglycemia coma status ([facility]) 09/29/2020 pen needle, diabetic (BD USE 1 TIME 400 each 1 ULTRA-FINE SHORT) 31 DAILY WITH gauge x 5/16" pen needles LANTUS. WILL NEED UP TO 3 DAILY WITH MEALTIME COVERAGE. 4 TOTAL DAILY 12/22/2020 simvastatin (ZOCOR) 20 MG TAKE [...] current use of UNITS PER DAY insulin ([facility]) 10/13/2020 04/29/2021 busPIRone (BUSPAR) 10 MG TAKE 1 TABLET 270 tablet 1 tablet BY MOUTH THREE TIMES DAILY FOR ANXIETY 10/07/2020 05/18/2021 gabapentin (NEURONTIN) TAKE 1 90 capsule 1 400 MG capsule CAPSULE(400 MG) BY MOUTH THREE TIMES DAILY 11/10/2020 06/04/2021 sertraline (ZOLOFT) 100 TAKE 2 90 tablet 1 mg tablet TABLETS(200 MG) BY MOUTH DAILY documented as of this encounter Plan of Treatment Care Team Description Date Type Specialty Tricia Roberson MD [address] [facility] [address] [place] [address] 06/30/2021 Office Visit Primary Care Sigrid Lozano PA-C [address] [facility] [address] [place] [address] 07/15/2021 Office Visit Endocrinology documented as of this encounter Visit Diagnoses Not on filedocumented in this encounter Care Teams Start Date End Date Production Expert Relationship Specialty 12/12/14 Tricia Roberson MD PCP - General [address] [facility] [address] [place], [place] [id number] documented as of this encounter
--- OUTSIDE RECORDS SUMMARY | 2021-06-14 11:14 | XMS REPORT | Encounter Summary ---
Author Author [facility] Organization [facility] Address Unknown Phone Unavailable Care Team Providers Care Fine Patcher Name Role Phone Tricia Roberson MD PCP Reason for Visit * Reason Comments Medication Refill Encounter Details Care Team Description Date Type Department Tricia Roberson MD [address] [facility] [address] [place] [address] Medication Refill 05/18/2021 [facility] [address] [facility] [employer] [facility] [address] [place] [address] Social History Date Tobacco Use [...] Courtney Bates LPN - 05/18/2021 11:14 AM FLORAL DESIGNER SALESPERSON gabapentin (NEURONTIN) 400 MG capsule 90 capsule 1 10/07/2020 Sig: TAKE 1 CAPSULE(400 MG) BY MOUTH THREE TIMES DAILY Sent to pharmacy as: gabapentin 400 mg capsule (NEURONTIN) E-Prescribing Status: Receipt confirmed by pharmacy (10/07/2020 2:02 PM CDT) SARAHI 02.06.2021 AL DESIGNER SALESPERSON documented in this encounter Plan of Treatment Care Team Description Date Type Specialty Tricia Roberson MD [address] [facility] [address] [place] [address] 06/30/2021 Office Visit Primary Care Sigrid Lozano PA-C [address] [facility] [address] [place] [address] 07/15/2021 Office Visit Endocrinology documented as of this encounter Visit Diagnoses Not on filedocumented in this encounter Care Teams Start Date End Date Fine Patcher Relationship Specialty 12/12/14 Tricia Roberson MD PCP - General [address] [facility] [address] [place] [address] documented as of this encounter
--- OUTSIDE RECORDS SUMMARY | 2021-06-14 11:14 | XMS REPORT | Encounter Summary ---
Author Author [facility] Organization [facility] Address Unknown Phone Unavailable Care Team Providers Care Operations/Dispatch Name Role Phone Tricia Roberson MD PCP Reason for Visit * Reason Comments Medication Refill Encounter Details Care Team Description Date Type Department Tricia Roberson MD [address] [facility] [address] [place] [address] Medication Refill 06/04/2021 Refill [facility] y Care - East [address] [facility] [address] [place] [address] Social History Date Tobacco Use [...] Type Specialty Tricia Roberson MD [address] [facility] [address] [place] [address] 06/30/2021 Office Visit Primary Care Sigrid Lozano PA-C [address] [phone] 07/15/2021 Office Visit Endocrinology documented as of this encounter Visit Diagnoses Not on filedocumented in this encounter Care Teams Start Date End Date Operations/Dispatch Relationship Specialty 12/12/14 Tricia Roberson MD PCP - General [address] [facility] [address] [place] [phone] documented as of this encounter
[2021-06-14] MEDS ORDERED: KETOROLAC 60 MG/2 ML VIAL IM STA (11:23)
[2021-06-14] MEDS ORDERED: METOCLOPRAMIDE INJ 10 MG/2 ML (REGLAN) IM STA (11:23)
[2021-06-14] MEDS ORDERED: diphenhydrAMINE 50 MG/ML INJ (BENADRYL) IM STA (11:23)
--- NOTE | 2021-06-14 11:25 | ED Headache ---
General Chief Complaint: Head/Cervical Problems Stated Complaint: HEADACHE Nursing Triage Note: PT REPORTS A HEADACHE FOR A WEEK NOW. PAIN IS LEFT EPISCOPAL AND SHE HAS PHOTOPHOBIA. Source: patient History of Present Illness Date Seen by Provider: Jun 14, 2021 Time Seen by Provider: 11:13 Initial Comments 41-year-old female presenting with complaints of headache in her left bahai with photophobia. She states she has had this headache for over a week now. She has a history of migraine headaches that are usually along her forehead. She has had nausea but no vomiting. She feels tired and rundown. She denies fever or chills. She has been taking agqr-hjf-sphykdt medicine and not been having any improvement in her symptoms. She has previously had to be seen to get "a migraine cocktail". She denies any cough, congestion, abdominal pain, diarrhea, vomiting, pain with urination. Timing/Duration: 1 week Severity/Quality: severe, constant, sharp Location: temporal (Left bahai area) Prior Headaches/Recent Trauma: chronic headaches Associated Symptoms: No confusion; fatigue; No facial pain, No fever/chills, No flushing, No loss of consciousness; nausea/vomiting (Nausea but no vomiting); No nasal congestion, No nasal drainage, No numbness in legs/feet, No rash, No seizures, No sinus infection, No stiff neck, No vision changes, No weakness Allergies and Home Medications Allergies Coded Allergies: metformin (Verified Allergy, Unknown, nausea/vomiting, 09/30/18) sumatriptan (Verified Allergy, Unknown, syncope, 09/30/18) Patient Home Medication List Home Medication List Reviewed: Yes Clindamycin HCl (Clindamycin HCl) 300 Mg Capsule, 300 MG PO QID Prescribed by: FLOYD GOMEZ on 05/20/21 1310 Clindamycin/Niacinamide (Clindamycin 1%-Niacinamide 4%) 30 Gm Gel..gram., 30 GM TP DAILY Prescribed by: FLOYD GOMEZ on 05/20/21 1320 Dicyclomine HCl (Bentyl) 20 Mg/2 Ml Inj, 20 MG IM QID Prescribed by: CHAVEZ SHARIF on 02/04/21 1243 Famotidine (Pepcid) 20 Mg Tablet, 20 MG PO BID Prescribed by: CHAVEZ SHARIF on 02/04/21 1243 Hydrocodone/Acetaminophen (Hydrocodone-Acetamin 10-325 mg) 1 Each Tablet, 1 EACH PO Q4H PRN for PAIN-SEVERE (8-10) Prescribed by: DEBBIE DELUCA on 11/06/20 0811 Ibuprofen (Ibuprofen) 800 Mg Tablet, 800 MG PO Q8H PRN for PAIN/Inflammation Prescribed by: DEBBIE DELUCA on 04/26/21 1314 Sulfamethoxazole/Trimethoprim (Bactrim Ds Tablet) 1 Each Tablet, 1 EACH PO BID Prescribed by: DEBBIE DELUCA on 04/26/21 1314 Review of Systems Review of Systems Constitutional: No chills, No dizziness, No fever Eyes: Photophobia Ears, Nose, Mouth, Throat: denies ear pain, denies ear discharge, denies nose pain, denies nose discharge, denies epistaxis Respiratory: no symptoms reported Cardiovascular: no symptoms reported Gastrointestinal: nausea; No vomiting Genitourinary: No dysuria Musculoskeletal: no symptoms reported Skin: No change in color, No rash Psychiatric/Neurological: Headache; Denies Numbness, Denies Paresthesia Past Thzzvgv-Dcwppk-Klgdas Hx Patient Social History Tobacco Use?: Yes Tobacco type used: Cigarettes Smoking Status: Current Everyday Smoker Use of E-Cig and/or Vaping dev: No Substance use?: No Alcohol Use?: No Pt feels they are or have been: No Immunizations Up To Date First/Initial COVID19 Vaccinat: 2020 Second COVID19 Vaccination Sha: 2020 COVID19 Vaccine Plastic Installer: MODERNHarpreet Seasonal Allergies Seasonal Allergies: Yes Past Medical History Surgery/Hospitalization HX: Hx of MRSA, Recurrent Abscesses Surgeries: Yes (Lap band removed.) Section, Eye Surgery, Gallbladder, Hysterectomy, Oophorectomy, Orthopedic, Tonsillectomy Respiratory: No Cardiac: Yes Hypertension 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 oz. [id number]; 43.00 BMI Method:Stated General Appearance: WD/WN, no apparent distress, obese HEENT: PERRL/EOMI, normal ENT inspection, TMs normal, pharynx normal Neck: non-tender, full range of motion, supple, normal inspection Cardiovascular: normal peripheral pulses, regular rate, rhythm Respiratory: chest non-tender, lungs clear, normal breath sounds Gastrointestinal: normal bowel sounds, non tender, soft, no pulsatile mass Extremities: normal range of motion, non-tender, normal capillary refill Psychiatric: alert, oriented x 3 Crainal Nerves: normal hearing, normal speech, PERRL Coordination/Gait: normal gait Motor/Sensory: no motor deficit, no sensory deficit Skin: normal color, warm/dry Progress/Results/Core Measures Results/Orders My Orders Orders - DEBBIE DELUCA MD Ketorolac Injection (Toradol Injection) (06/14/21 11:23) Diphenhydramine Injection (Benadryl Inje (06/14/21 11:23) Metoclopramide Injection (Reglan Injecti (06/14/21 11:23) Vital Signs/I&O 06/14/21 06/14/21 11:15 11:30 Temp 36.1 36.1 Pulse 74 74 Resp 20 20 B/P (MAP) 162/84 (110) 162/84 Pulse Ox 97 97 O2 Delivery Room Air Room Air Blood Pressure Mean: 110 Progress Progress Note : Progress Note Since this headache is similar to her regular migraines will give Toradol, Benadryl, Reglan and see if that helps. Advised to rest in a cool dark room. Push fluids and rest. Follow-up through the clinic or return if worsening symptoms or not resolving Departure Impression Primary Impression: Migraine headache without aura Qualified Codes: G43.019 - Migraine without aura, intractable, without status migrainosus Disposition: 01 HOME, SELF-CARE Condition: Stable Departure-Patient Inst. Decision time for Depature: 11:30 Referrals: AMINA MAR MD (PCP/Family) Primary Care Physician Patient Instructions: Home Headache Remedies, Migraines in Adults Add. Discharge Instructions: Rest in a cool dark. Continue with your home medications. Try and stay well-hydrated and get plenty of rest. If continued symptoms or problems then follow-up through the clinic or return for further evaluation. All discharge instructions reviewed with patient and/or family. Voiced understanding. DEBBIE DELUCA MD Jun 14, 2021 11:25
[2021-06-14 11:30] VITALS: BP 162/84
== END 2021-06-14 11:34 | disposition home or self-care (01) ==
LOC: EDUNIT# 11:09 → ER FS 11:11
DX: G43.009 Migraine without aura, not intractable, without status migrainosus (principal); I10 Essential (primary) hypertension; E11.9 Type 2 diabetes mellitus without complications; E66.9 Obesity, unspecified; F17.210 Nicotine dependence, cigarettes, uncomplicated; Z68.41 Body mass index [BMI] 40.0-44.9, adult
CPT/HCPCS: 99284

== ENCOUNTER → 2021-11-04 | Outpatient (CLI) | payer MEDICAID ==
--- NOTE | 2021-11-04 14:55 | Diagnostic Imaging Report ---
3-D final screening mammogram with CAD. This study was compared to the prior exams of 09/10/2019 and 07/28/2018. At this time there are no current complaints. The current study was also evaluated with a Computer Aided Detection (CAD) system. FINDINGS: There are scattered fibroglandular densities in both breasts which could obscure a lesion. Overall, there does not appear to have been any significant change when compared to the prior exam. No primary or secondary sign of malignancy is noted. IMPRESSION: 1. There is no radiographic evidence for malignancy 2. The patient should have her annual bilateral screening mammogram on schedule in October 2022. ACR category 1 ACR BI-RADS Category 1: Negative. Result letter will be mailed to the patient. Note: At least 10% of breast cancer is not imaged by mammography. Dictated by: Dictated on workstation # [id number]
== END ==
LOC: RAD 10:15
PROVIDERS: ATTEND Internal Medicine
DX: Z12.31 Encounter for screening mammogram for malignant neoplasm of breast (principal)
CPT/HCPCS: 77063; 77067

== ENCOUNTER 2022-06-03 17:04 | Emergency (ER) | payer MEDICAID ==
[~2022-06-03] VITALS: Ht 170.2 cm; Wt 138.0 kg
[2022-06-03 17:10] VITALS: BP 183/91
--- NOTE | 2022-06-03 17:12 | ED Back Pain ---
General Chief Complaint: Back Problems Stated Complaint: BACK PAIN History of Present Illness Date Seen by Provider: Jun 03, 2022 Time Seen by Provider: 17:12 Initial Comments 42-year-old female with PMH of chronic back pain is here with complaints of l ower back pain. Patient had an MRI done a few weeks ago with her neurologist, which showed a herniated disc between L4 and L5, and also L5 and S1. Patient is able to ambulate. Denies sensory loss, bowel or bladder dysfunction, radiation of pain, falls, trauma, injury, heavy lifting. Patient is already on gabapentin, Flexeril, hydrocodone at home, and it is not helping. Patient is using a cane as baseline. Allergies and Home Medications Allergies Coded Allergies: metformin (Verified Allergy, Unknown, nausea/vomiting, 09/30/18) sumatriptan (Verified Allergy, Unknown, syncope, 09/30/18) Patient Home Medication List Home Medication List Reviewed: Yes Clindamycin HCl (Clindamycin HCl) 300 Mg Capsule, 300 MG PO QID Prescribed by: FLOYD GOMEZ on 05/20/21 1310 Clindamycin/Niacinamide (Clindamycin 1%-Niacinamide 4%) 30 Gm Gel..gram., 30 GM TP DAILY Prescribed by: FLOYD GOMEZ on 05/20/21 1320 Dicyclomine HCl (Bentyl) 20 Mg/2 Ml Inj, 20 MG IM QID Prescribed by: CHAVEZ SHARIF on 02/04/21 1243 Famotidine (Pepcid) 20 Mg Tablet, 20 MG PO BID Prescribed by: CHAVEZ SHARIF on 02/04/21 1243 Hydrocodone/Acetaminophen (Hydrocodone-Acetamin 10-325 mg) 1 Each Tablet, 1 EACH PO Q4H PRN for PAIN-SEVERE (8-10) Prescribed by: DEBBIE DELUCA on 11/06/20 0811 Ibuprofen (Ibuprofen) 800 Mg Tablet, 800 MG PO Q8H PRN for PAIN/Inflammation Prescribed by: DEBBIE DELUCA on 04/26/21 1314 Sulfamethoxazole/Trimethoprim (Bactrim Ds Tablet) 1 Each Tablet, 1 EACH PO BID Prescribed by: DEBBIE DELUCA on 04/26/21 1314 Review of Systems Constitutional: no symptoms reported EENTM: no symptoms reported Respiratory: no symptoms reported Cardiovascular: no symptoms reported Gastrointestinal: no symptoms reported Genitourinary: no symptoms reported Musculoskeletal: back pain Skin: no symptoms reported Psychiatric/Neurological: No Symptoms Reported Past Mqmpooe-Pkyufr-Qrljeu Hx Immunizations Up To Date First/Initial COVID19 Vaccinat: 2020 Second COVID19 Vaccination Sha: 2020 Seasonal Allergies Seasonal Allergies: Yes Past Medical History Surgery/Hospitalization HX: Hx of MRSA, Recurrent Abscesses Surgeries: Yes (Lap band removed.) Section, Eye Surgery, Gallbladder, Hysterectomy, Oophorectomy, Orthopedic, Tonsillectomy Respiratory: No Cardiac: Yes Hypertension 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 oz. [id number]; 43.00 BMI Method:Stated General Appearance: Mild Distress HEENT: PERRL/EOMI Neck: Full Range of Motion, Normal Inspection, Non Tender, Supple Cardiovascular: Regular Rate, Rhythm Respiratory: Lungs Clear Gastrointestinal: Non Tender, Soft Back: Normal Inspection, No CVA Tenderness, Other (Tenderness present between S4-S1 area with mild para spinal muscle spasm. Bilateral straight leg test negative, no saddle anesthesia, no sensory loss.) Extremity: Normal Inspection, Normal Range of Motion Neurologic/Psychiatric: Alert, Oriented x3, No Motor/Sensory Deficits, Normal Mood/Affect Skin: Normal Color Progress/Results/Core Measures Results/Orders My Orders Orders - DARYN RILEY MD Dexamethasone Injection (Decadron Inje (06/03/22 17:45) Ketorolac Injection (Toradol Injection) (06/03/22 17:45) Medications Given in ED Current Medications Medications Dose Ordered Sig/Martin Route Start Time Stop Time Status Last Admin Dose Admin Dexamethasone Sodium Phosphate 10 mg ONCE ONCE IM 06/03/22 17:45 06/03/22 17:46 DC 06/03/22 17:48 10 MG Ketorolac Tromethamine 30 mg ONCE ONCE IM 06/03/22 17:45 06/03/22 17:46 DC 06/03/22 17:48 30 MG Vital Signs/I&O 06/03/22 17:10 Temp 36.6 Pulse 89 Resp 16 B/P (MAP) 183/91 (121) O2 Delivery Room Air Progress Progress Note : Progress Note 1. ACUTE ON CHRONIC BACK PAIN & MUSCLE SPASM/ HERNIATED LUMBAR DISC: -Patient had a [facility] showing: L4-L5 with no mass-effect, L5-S1 with mass- effect on S1. Patient showed me her MRI report on her phone. -Dexamethasone 10 mg IM stat/Toradol 30 mg IM stat -Advised to continue her home medications of gabapentin and Flexeril, and hydrocodone. -Advised to add naproxen and Tylenol for pain as needed. -Advise Lidoderm patch to lower back/gentle stretching/heat application /follow- up with neurology clinic and PCP office for referral to pain management and physical therapy. -The patient was seen in the ED, and treated appropriately to presentation at a specific point in time. Patient is informed that there is a possibility that disease and illness can evolve and change in acuity rapidly or slowly after patient is discharged from the ER. Precautionary advice given to the patient for immediate return to ER if symptoms worsen or do not resolve, and to seek emergency care sooner rather than later. Pt also advised on the importance of PCP follow up and compliance with management and follow up plan with PCP and/or specialist, as this is part of the management plan. Pt verbally expressed understanding. Departure Impression Primary Impression: Acute exacerbation of chronic low back pain Additional Impressions: Lumbar disc herniation Lumbar paraspinal muscle spasm Disposition: 01 HOME, SELF-CARE Condition: Stable/Unchanged Departure-Patient Inst. Referrals: AMINA MAR MD (PCP/Family) Primary Care Physician Patient Instructions: MANAGING YOUR CHRONIC PAIN, Muscle Spasms (DC), Low Back Pain (DC), Herniated Disc (DC), Using Heat for Pain, Herniated Disc Exercises Add. Discharge Instructions: -Advised to continue her home medications of gabapentin and Flexeril, and hydrocodone. -Advised to add naproxen and Tylenol for pain as needed. -Advise Lidoderm patch to lower back/gentle stretching/heat application /follow-up with neurology clinic and PCP office for referral to pain management and physical therapy. -List of exercises for herniated disc also given All discharge instructions reviewed with patient and/or family. Voiced understanding. DARYN RILEY MD Jun 03, 2022 17:12
[2022-06-03] MEDS ORDERED: KETOROLAC 30 MG/ML VIAL IM ONE (17:45)
== END 2022-06-03 19:08 | disposition home or self-care (01) ==
LOC: EDUNIT# 17:04 → ER FS 17:05
DX: M51.26 Other intervertebral disc displacement, lumbar region (principal)
CPT/HCPCS: 99284

== ENCOUNTER 2023-01-08 10:18 | Emergency (ER) | payer MEDICAID ==
[~2023-01-08] VITALS: Ht 175 cm; Wt 125.0 kg
--- NOTE | 2023-01-08 10:27 | ED Abdominal Pain ---
General Stated Complaint: LRQ PAIN History of Present Illness Date Seen by Provider: Jan 08, 2023 Time Seen by Provider: 10:23 Initial Comments 42-year-old female presents with right-sided abdominal pain has been going on for about 4 days. She reports that she saw urgent care who did an x-ray but does not know the results. That the pain has been constant but fluctuates in intensity. Gets worse with movement. She reports that she has a history of kidney stones. She does not have a gallbladder. She is got some nausea but no vomiting. No diarrhea, no fevers or chills. She does have some right-sided flank pain. Allergies and Home Medications Allergies Coded Allergies: metformin (Verified Allergy, Unknown, nausea/vomiting, 09/30/18) sumatriptan (Verified Allergy, Unknown, syncope, 09/30/18) Patient Home Medication List Home Medication List Reviewed: Yes Clindamycin HCl (Clindamycin HCl) 300 Mg Capsule, 300 MG PO QID Prescribed by: FLOYD GOMEZ on 05/20/21 1310 Clindamycin/Niacinamide (Clindamycin 1%-Niacinamide 4%) 30 Gm Gel..gram., 30 GM TP DAILY Prescribed by: FLOYD GOMEZ on 05/20/21 1320 Dicyclomine HCl (Bentyl) 20 Mg/2 Ml Inj, 20 MG IM QID Prescribed by: CHAVEZ SHARIF on 02/04/21 1243 Famotidine (Pepcid) 20 Mg Tablet, 20 MG PO BID Prescribed by: CHAVEZ SHARIF on 02/04/21 1243 Hydrocodone/Acetaminophen (Hydrocodone-Acetamin 10-325 mg) 1 Each Tablet, 1 EACH PO Q4H PRN for PAIN-SEVERE (8-10) Prescribed by: DEBBIE DELUCA on 11/06/20 0811 Ibuprofen (Ibuprofen) 800 Mg Tablet, 800 MG PO Q8H PRN for PAIN/Inflammation Prescribed by: DEBBIE DELUCA on 04/26/21 1314 Sulfamethoxazole/Trimethoprim (Bactrim Ds Tablet) 1 Each Tablet, 1 EACH PO BID Prescribed by: DEBBIE DELUCA on 04/26/21 1314 Review of Systems Review of Systems Constitutional: No chills, No fever Respiratory: Denies Cough Cardiovascular: Denies Chest Pain Gastrointestinal: Abdominal Pain; Denies Diarrhea; Nausea; Denies Vomiting Genitourinary: See HPI Musculoskeletal: see HPI Skin: no symptoms reported Psychiatric/Neurological: No Symptoms Reported Endocrine: No Symptoms Reported Past [id number]-[id number] Hx Immunizations Up To Date First/Initial COVID19 Vaccinat: 2020 Second COVID19 Vaccination Sha: 2020 Seasonal Allergies Seasonal Allergies: Yes Past Medical History Surgery/Hospitalization HX: Hx of MRSA, Recurrent Abscesses Surgeries: Yes (Lap band removed.) Section, Eye Surgery, Gallbladder, Hysterectomy, Oophorectomy, Orthopedic, Tonsillectomy Respiratory: No Cardiac: Yes Hypertension 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 oz. 118.008060pr; 47.00 BMI Method:Stated General Appearance: no apparent distress, obese Respiratory: lungs clear, normal breath sounds Cardiovascular: normal peripheral pulses Gastrointestinal: soft, rebound Extremities: normal range of motion Back: CVA tenderness (R) Neurologic/Psychiatric: alert, normal mood/affect, oriented x 3 Skin: normal color, warm/dry Progress/Results/Core Measures Results/Orders Lab Results Laboratory Tests Test 01/08/23 10:34 01/08/23 11:16 Range/Units White Blood Count 14.4 H 4.3-11.0 10^3/uL Red Blood Count 4.82 3.80-5.11 10^6/uL Hemoglobin 14.3 11.5-16.0 g/dL Hematocrit 42 35-52 % Mean Corpuscular Volume 86 80-99 fL Mean Corpuscular Hemoglobin 30 25-34 pg Mean Corpuscular Hemoglobin Concent 34 32-36 g/dL Red Cell Distribution Width 13.1 10.0-14.5 % Platelet Count 347 130-400 10^3/uL Mean Platelet Volume 10.2 9.0-12.2 fL Neutrophils (%) (Auto) 76 H 42-75 % Lymphocytes (%) (Auto) 16 12-44 % Monocytes (%) (Auto) 5 0-12 % Eosinophils (%) (Auto) 2 0-10 % Basophils (%) (Auto) 0 0-10 % Neutrophils # (Auto) 10.9 H 1.8-7.8 X 10^3 Lymphocytes # (Auto) 2.4 1.0-4.0 X 10^3 Monocytes # (Auto) 0.8 0.0-1.0 X 10^3 Eosinophils # (Auto) 0.2 0.0-0.3 10^3/uL Basophils # (Auto) 0.1 0.0-0.1 10^3/uL Neutrophils % (Manual) 79 % Lymphocytes % (Manual) 13 % Monocytes % (Manual) 7 % Eosinophils % (Manual) 1 % Sodium Level 136 135-145 MMOL/L Potassium Level 4.4 3.6-5.0 MMOL/L Chloride Level 101 98-107 MMOL/L Carbon Dioxide Level 24 21-32 MMOL/L Anion Gap 11 5-14 MMOL/L Blood Urea Nitrogen 9 7-18 MG/DL Creatinine 0.70 0.60-1.30 MG/DL Estimat Glomerular Filtration Rate 109 BUN/Creatinine Ratio 13 Glucose Level 176 H 70-105 MG/DL Calcium Level 9.9 8.5-10.1 MG/DL Corrected Calcium 10.1 8.5-10.1 MG/DL Total Bilirubin 0.3 0.1-1.0 MG/DL Aspartate Amino Transf (AST/SGOT) 24 5-34 U/L Alanine Aminotransferase (ALT/SGPT) 16 0-55 U/L Alkaline Phosphatase 156 H 40-136 U/L C-Reactive Protein 3.06 H <0.50 MG/DL Total Protein 7.2 6.4-8.2 GM/DL Albumin 3.8 3.2-4.5 GM/DL Lipase 23 8-78 U/L Urine Color YELLOW Urine Clarity CLOUDY Urine pH 6.0 5-9 Urine Specific [place] 1.020 1.016-1.022 Urine Protein NEGATIVE NEGATIVE Urine Glucose (UA) NEGATIVE NEGATIVE Urine Ketones NEGATIVE NEGATIVE Urine Nitrite NEGATIVE NEGATIVE Urine Bilirubin NEGATIVE NEGATIVE Urine Urobilinogen 0.2 < = 1.0 MG/DL Urine Leukocyte Esterase NEGATIVE NEGATIVE Urine RBC (Auto) NEGATIVE NEGATIVE Urine RBC NONE /HPF Urine WBC 10-25 H /HPF Urine Squamous Epithelial Cells >50 H /HPF Urine Crystals NONE /LPF Urine Bacteria LARGE H /HPF Urine Casts NONE /LPF Urine Mucus NEGATIVE /LPF Urine Culture Indicated NO My Orders Orders - SANCHES,JUSTINE L DO Cbc With Automated Diff (01/08/23 10:33) Comprehensive Metabolic Panel (01/08/23 10:33) Lipase (01/08/23 10:33) Ua Culture If Indicated (01/08/23 10:33) Crp Fs (01/08/23 10:33) Ketorolac Injection (Toradol Injection) (01/08/23 10:33) Ondansetron Injection (Zofran Injectio (01/08/23 10:45) Ns Iv 1000 Ml (Sodium Chloride 0.9%) (01/08/23 10:33) Manual Differential (01/08/23 10:34) Ct Abdomen/Pelvis W (01/08/23 11:31) Iohexol Injection (Omnipaque 350 Mg/Ml 1 (01/08/23 11:45) Received Contrast (Hold Metformin- Contr (01/08/23 11:45) Ns (Ivpb) (Sodium Chloride 0.9% Ivpb Bag (01/08/23 11:45) Medications Given in ED Current Medications Medications Dose Ordered Sig/Martin Route Start Time Stop Time Status Last Admin Dose Admin Iohexol 100 ml ONCE ONCE IV 01/08/23 11:45 01/08/23 11:46 DC 01/08/23 11:47 100 ML Ondansetron HCl 4 mg ONCE ONCE IVP 01/08/23 10:45 01/08/23 10:46 DC 01/08/23 10:46 4 MG Sodium Chloride 100 ml ONCE ONCE IV 01/08/23 11:45 01/08/23 11:46 DC 01/08/23 11:47 100 ML Vital Signs/I&O 01/08/23 10:33 Pulse 91 Resp 16 B/P (MAP) 148/56 (86) Pulse Ox 96 O2 Delivery Room Air Progress Progress Note : Progress Note Patient's diagnostic studies were ordered reviewed and interpreted by me. Patient labs showed slight elevation of her white count slight elevation of her CRP. CT abdomen pelvis with contrast was obtained which was initially reviewed by me with final interpretation per radiology report. Patient's finding of some early colitis correlates with patient's abdominal pain. Patient also has other nonspecific findings that will need to be evaluated on outpatient basis. I will start her on Cipro and Flagyl since her pain has been going on for 4 days with some nausea. She will also be given a nausea medication. We will have her follow-up with her primary care provider to consider an MR I of her abdomen for further evaluation of her abnormal liver findings. Patient is at increased risk of morbidity and mortality based on her social determinants of health. Patient stable and discharged home. Diagnostic Imaging Diagonstic Imaging: CT Plain Films/CT/US/NM/MRI: abdomen, pelvis Comments CT ABDOMEN/PELVIS W Clinical indications: Patient with upper abdominal pain. EXAM: Axial CT scan of the abdomen and pelvis performed with 50 mL Omnipaque 350 IV contrast. Sagittal and coronal reformatted images are created. Auto Exposure Controls were utilized during the CT exam to meet ALARA standards for radiation dose reduction. COMPARISON: CT scan abdomen and pelvis performed with contrast dated 02/04/2021. FINDINGS: Is a small parenchymal band in the right lung base and lingular lung base and posterior left lung base which may be related to atelectasis. There are small degenerative spurs involving the thoracic spine. There is interval increased size of the amorphous low attenuation area involving the left lobe of liver which now is seen medial to the falciform ligament, but is predominantly involving the left lobe of liver lateral to the falciform ligament. There appears to be slight capsular contraction in the region. The liver measures 20.6 cm in craniocaudal dimensions. There are calcified granuloma within the spleen. Spleen is otherwise unremarkable. The gallbladder surgically absent. The pancreas is unremarkable. Adrenal glands are unremarkable. There is a small cyst involving the right kidney. There is no hydronephrosis or stones. Both kidneys are unremarkable otherwise. Bladder is decompressed and unremarkable. There are multiple phleboliths seen in the pelvis. The uterus is surgically absent. Stable appearing slight prominence of the left adnexal region. Right adnexal structures not seen and may be surgically absent. There is no intra-abdominal free air or free fluid. There is no lymphadenopathy. There is high density within the appendix. The appendix is otherwise unremarkable. There is no intestinal obstruction. There is fat stranding in the right hepatic flexure region adjacent to the colon and near the liver which has developed in the interim. There is no colonic wall thickening. There is no diverticula seen in the region. Intraabdominal and extrapelvic soft tissue structures are unremarkable. There is a fat-containing umbilical hernia seen. IMPRESSION: 1: There is interval development of a small area of fat stranding near the hepatic flexure of the colon and near the liver. There is no significant colonic wall thickening or diverticula seen in the region. These findings may be related to early colitis. There is no epiploic appendix seen in the region. 2: There is interval increased size of the amorphous low-density area involving the left lobe of liver which is nonspecific. There appears to be interval development of capsular contraction. Since this is a long-standing process which has progressed, nonemergent MRI of the liver with and without contrast is suggested for further evaluation. 3: The remainder of this exam shows no other significant abnormality. Reviewed: Reviewed by Me, Reviewed/Discussed Departure Impression Primary Impression: Colitis Additional Impression: Abnormal finding on imaging of liver Disposition: HOME, SELF-CARE Condition: Stable Departure-Patient Inst. Referrals: AMINA MAR MD (PCP/Family) Primary Care Physician Patient Instructions: Colitis (DC), Incidental Findings Add. Discharge Instructions: Please follow-up with your primary care provider in 1 week to ensure you are improving and to review your CT scan and to arrange for further outpatient imaging and evaluation. Please take antibiotics as prescribed. Drink plenty of fluids. Scripts Ondansetron (Ondansetron Odt) 4 Mg Tab.rapdis 4 MG PO Q6H PRN for NAUSEA/VOMITING, #20 TAB 0 Refills Prov: JUSTINE SANCHES DO 01/08/23 Metronidazole (Metronidazole) 500 Mg Tablet 500 MG PO BID, #14 TAB 0 Refills Prov: KAN SANCHESR L DO 01/08/23 Ciprofloxacin HCl (Ciprofloxacin HCl) 500 Mg Tablet 500 MG PO BID, #14 TAB Prov: KAN SANCHESR L DO 01/08/23 UJSTINE SANCHES DO Jan 08, 2023 10:27
[2023-01-08 10:33] VITALS: BP 148/56
[2023-01-08] MEDS ORDERED: NS IV 1000 ML 1,000 ML IV STA (10:33)
[2023-01-08] MEDS ORDERED: KETOROLAC 30 MG/ML VIAL IVP STA (10:33)
[2023-01-08 10:41] LABS: BASOPHILS # (AUTO) 0.1 10^3/uL (0.0-0.1); BASOPHILS % (AUTO) 0 % (0-10); EOSINOPHILS # (AUTO) 0.2 10^3/uL (0.0-0.3); EOSINOPHILS % (AUTO) 2 % (0-10); HEMATOCRIT 42 % (35-52); HEMOGLOBIN 14.3 g/dL (11.5-16.0); LYMPHOCYTES # (AUTO) 2.4 X 10^3 (1.0-4.0); LYMPHOCYTES % (AUTO) 16 % (12-44); MEAN CORPUSCULAR HEMOGLOBIN 30 pg (25-34); MEAN CORPUSCULAR HGB CONC 34 g/dL (32-36); MEAN CORPUSCULAR VOLUME 86 fL (80-99); MEAN PLATELET VOLUME 10.2 fL (9.0-12.2); MONOCYTES # (AUTO) 0.8 X 10^3 (0.0-1.0); MONOCYTES % (AUTO) 5 % (0-12); NEUTROPHILS # (AUTO) 10.9 X 10^3 (1.8-7.8); NEUTROPHILS % (AUTO) 76 % (42-75); PLATELET COUNT 347 10^3/uL (130-400); WHITE BLOOD COUNT 14.4 10^3/uL (4.3-11.0)
[2023-01-08] MEDS ORDERED: ONDANSETRON 4 MG/2 ML (SDV) Z0FRAN IVP ONE (10:45)
[2023-01-08 10:58] LABS: BILIRUBIN,TOTAL 0.3 MG/DL (0.1-1.0); CALCIUM 9.9 MG/DL (8.5-10.1); CREATININE SERUM 0.7 MG/DL (0.60-1.30); POTASSIUM 4.4 MMOL/L (3.6-5.0)
[2023-01-08 10:59] LABS: ALBUMIN 3.8 GM/DL (3.2-4.5); TOTAL PROTEIN 7.2 GM/DL (6.4-8.2)
[2023-01-08 11:18] LABS: BILIRUBIN,URINE NEGATIVE (NEGATIVE); COLOR,URINE YELLOW; GLUCOSE, URINE (UA) NEGATIVE (NEGATIVE); KETONES,URINE NEGATIVE (NEGATIVE); LEUKOCYTE ESTERASE ,URINE NEGATIVE (NEGATIVE); NITRITE,URINE NEGATIVE (NEGATIVE); PROTEIN,URINE NEGATIVE (NEGATIVE)
[2023-01-08 11:22] LABS: BACTERIA,URINE LARGE /HPF; CLARITY,URINE CLOUDY; SQUAMOUS EPITHELIAL CELL,UR >50 /HPF
[2023-01-08 11:26] LABS: EOSINOPHILS % (MANUAL) 1 %; LYMPHOCYTES % (MANUAL) 13 %; MONOCYTES % (MANUAL) 7 %; NEUTROPHILS % (MANUAL) 79 %
[2023-01-08] MEDS ORDERED: HOLD METFORMIN - RECEIVED CONTRAST 20 ML VIAL IV SCH (11:45)
[2023-01-08] MEDS ORDERED: IOHEXOL 350 MG/ML 100 ML (OMNIPAQUE 350) VIAL IV ONE (11:45)
[2023-01-08] MEDS ORDERED: NS 100 ML (IVPB) BAG IV ONE (11:45)
--- NOTE | 2023-01-08 12:52 | Diagnostic Imaging Report ---
Clinical indications: Patient with upper abdominal pain. EXAM: Axial CT scan of the abdomen and pelvis performed with 50 mL Omnipaque 350 IV contrast. Sagittal and coronal reformatted images are created. Auto Exposure Controls were utilized during the CT exam to meet ALARA standards for radiation dose reduction. COMPARISON: CT scan abdomen and pelvis performed with contrast dated 02/04/2021. FINDINGS: Is a small parenchymal band in the right lung base and lingular lung base and posterior left lung base which may be related to atelectasis. There are small degenerative spurs involving the thoracic spine. There is interval increased size of the amorphous low attenuation area involving the left lobe of liver which now is seen medial to the falciform ligament, but is predominantly involving the left lobe of liver lateral to the falciform ligament. There appears to be slight capsular contraction in the region. The liver measures 20.6 cm in craniocaudal dimensions. There are calcified granuloma within the spleen. Spleen is otherwise unremarkable. The gallbladder surgically absent. The pancreas is unremarkable. Adrenal glands are unremarkable. There is a small cyst involving the right kidney. There is no hydronephrosis or stones. Both kidneys are unremarkable otherwise. Bladder is decompressed and unremarkable. There are multiple phleboliths seen in the pelvis. The uterus is surgically absent. Stable appearing slight prominence of the left adnexal region. Right adnexal structures not seen and may be surgically absent. There is no intra-abdominal free air or free fluid. There is no lymphadenopathy. There is high density within the appendix. The appendix is otherwise unremarkable. There is no intestinal obstruction. There is fat stranding in the right hepatic flexure region adjacent to the colon and near the liver which has developed in the interim. There is no colonic wall thickening. There is no diverticula seen in the region. Intraabdominal and extrapelvic soft tissue structures are unremarkable. There is a fat-containing umbilical hernia seen. IMPRESSION: 1: There is interval development of a small area of fat stranding near the hepatic flexure of the colon and near the liver. There is no significant colonic wall thickening or diverticula seen in the region. These findings may be related to early colitis. There is no epiploic appendix seen in the region. 2: There is interval increased size of the amorphous low-density area involving the left lobe of liver which is nonspecific. There appears to be interval development of capsular contraction. Since this is a long-standing process which has progressed, nonemergent MRI of the liver with and without contrast is suggested for further evaluation. 3: The remainder of this exam shows no other significant abnormality. Dictated by: Dictated on workstation # [id number]
[2023-01-08] MEDS ORDERED: CIPR500T5 PO (13:01)
[2023-01-08] MEDS ORDERED: ONDA4TAB11 PO (13:01)
[2023-01-08] MEDS ORDERED: METR-145 PO (13:01)
== END 2023-01-08 13:11 ==
LOC: EDUNIT# 10:18 → ER FS 10:19
DX: K52.9 Noninfective gastroenteritis and colitis, unspecified (principal); R93.2 Abnormal findings on diagnostic imaging of liver and biliary tract; E11.9 Type 2 diabetes mellitus without complications; E66.9 Obesity, unspecified; Z68.42 Body mass index [BMI] 45.0-49.9, adult; Z79.4 Long term (current) use of insulin; Z87.442 Personal history of urinary calculi
CPT/HCPCS: 36415; 74177; 80053; 81000; 83690; 85007; 85027; 86141; Q9967